=== PATIENT | male | born 1945 | race Caucasian/White ===

== ENCOUNTER → 2017-08-18 | Outpatient (CLI) | payer OTHER, MEDICARE ==
[~2017-08-18] MED LIST: GADAVIST IV PRN
--- NOTE | 2017-08-18 13:21 | DIAGNOSTIC IMAGING REPORT ---
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 There is a 5 mm postcontrast enhancing lesion within the lateral left internal auditory canal. This is unchanged in size or configuration as compared to the prior study. Enhancement characteristics are similar. The right internal auditory canal is unremarkable. Right 7th and 8th nerves are within normal limits. Diffusion-weighted knee show no evidence for an acute ischemic event. Ventricular system is midline. There are findings of moderate cerebellar as well as cerebral atrophy. Moderate chronic small vessel changes present. This is stable. There are no new or interval findings. IMPRESSION: Stable left internal auditory canal acoustic neuroma. 2. No change in size, configuration, or enhancement characteristics compared to the prior study. 3. Age-related atrophy and chronic small vessel change also unaltered. 4. No evidence of new interval or progressive process. The above report was generated using voice recognition software. It may contain grammatical, syntax or spelling errors. Electronically signed by: Will Monge M.D. 08/18/2017 1:20 PM Dictated Date/Time: 08/18/2017 1:14 PM
== END | disposition home or self-care (01) ==
LOC: C.MRI 12:02
PROVIDERS: ATTEND Family Medicine
DX: D33.3 Benign neoplasm of cranial nerves (principal)

== ENCOUNTER 2024-03-04 05:40 | Inpatient (IN) ==
--- NOTE | 2024-01-22 10:42 | PAT Medication Instructions ---
Medication Instructions Date of Service January 22, 2024 Home Medications Medication Instructions Recorded warfarin 5 mg tablet 5 - 7.5 mg PO DAILY #135 tabs 03/10/23 tamsulosin 0.4 mg capsule 0.4 mg PO HS #90 caps 12/09/23 atorvastatin 80 mg tablet 80 mg PO QPM #90 tabs 01/12/24 gabapentin 600 mg tablet 600 mg PO Q6H #120 tabs 01/15/24 cetirizine 10 mg tablet 10 mg PO QPM vit C 226 mg-vit E 90 mg-copper 0.8 mg-zinc oxide-lutein 5 mg capsule (PreserVision Lutein) 1 cap PO BID warfarin 5 mg tablet 5 - 7.5 mg PO DAILY metoprolol succinate 25 mg tablet,extended release 24 hr 25 mg PO QAM fluticasone propionate 50 mcg/actuation nasal spray,suspension (Flonase Allergy Relief) 1 spray intranasal DAILY PRN tamsulosin 0.4 mg capsule 0.4 mg PO HS atorvastatin 80 mg tablet 80 mg PO QPM acetaminophen 500 mg capsule 1,000 mg PO Q6H PRN amoxicillin 500 mg capsule 2,000 mg PO UD escitalopram oxalate 20 mg tablet 20 mg PO HS ezetimibe 10 mg tablet (Zetia) 10 mg PO QPM gabapentin 600 mg tablet 600 mg PO Q6H Continue as directed amoxicillin 500 mg capsule 2,000 mg PO UD fluticasone propionate 50 mcg/actuation nasal spray,suspension (Flonase Allergy Relief) 1 spray intranasal DAILY PRN(if needed) ASK your prescriber and surgeon warfarin 5 mg tablet 5 - 7.5 mg PO DAILY STOP taking 2 weeks before surgery (or as soon as possible if surgery is within 2 weeks) vit C 226 mg-vit E 90 mg-copper 0.8 mg-zinc oxide-lutein 5 mg capsule (PreserVision Lutein) 1 cap PO BID Take morning of surgery With a small sip of water, OTHERWISE NOTHING TO EAT OR DRINK AFTER MIDNIGHT: metoprolol succinate 25 mg tablet,extended release 24 hr 25 mg PO QAM acetaminophen 500 mg capsule 1,000 mg PO Q6H PRN(if needed) gabapentin 600 mg tablet 600 mg PO Q6H Take evening before surgery cetirizine 10 mg tablet 10 mg PO QPM tamsulosin 0.4 mg capsule 0.4 mg PO HS atorvastatin 80 mg tablet 80 mg PO QPM acetaminophen 500 mg capsule 1,000 mg PO Q6H PRN(if needed) escitalopram oxalate 20 mg tablet 20 mg PO HS ezetimibe 10 mg tablet (Zetia) 10 mg PO QPM gabapentin 600 mg tablet 600 mg PO Q6H Other Notes If you have any questions please call us at [phone] or [phone] or [phone] or [phone]
--- NOTE | 2024-01-26 11:48 | Anesthesiology Consultation ---
Date of Service January 26, 2024 Assessment & Plan (1) Encounter for pre-operative examination: Plan - pt has concerns stopping Preservision-this was discussed with Dr. Helms who advised determination will be to surgeon's office. Surgeon's office notified and patient made aware. - awaiting surgeon ordered medical clearance, [place] 01/28. - check coags STAT am DOS. - cardiology pre-op 01/22/24: "...persistent atrial fibrillation. Aortic stenosis with a [facility] mechanical aortic valve replacement in 2001 at [facility]. CAD with CABG x 1 with a ANDRE to the RCA in 2001 & previous stent to the LAD in 1994...spinal surgery...rare occasions he has a slight dizziness that lasts for few seconds and resolves on its own...Zio monitor done on 03/21/2023 showed afib burden of 99% with no other significant abnormalities One pause was noted lasting 3 seconds while patient was in atrial fibrillation...doing well today...EP...have taken patient off sotalol and substitute this with metoprolol which patient is tolerating well...euvolemic...no further cardiac workup needed prior to surgery...moderate risk for major adverse cardiac events for his spinal fusion surgery...will need bridging prior to his surgery...referral to coumadin clinic has been made..." Pt states has been contacted by coumadin clinic. Chart Review Chart Review: Pending: Refer to Additional Notes / Consult section and Patient seen in Pre Admission Testing Teaching & Discussion Pre-Anesthesia Teaching/Discussion Notes: Instructed NPO after midnight before surgery, except medications with 15 cc of water. Medication instructions provided according to the PAT guidelines. History Surgery Operation Date: 02/23/24 07:45 Proposed Procedures p L2-L5 Decompression and Fusion Spinal Cord Monitoring - Óscar Lester, Height/Weight Height: 5 ft 8 in Weight: 110.9 kg Allergies Allergy/AdvReac Type Severity Reaction Status Date / Time fexofenadine [From Milla] Allergy had chest Verified 01/13/24 11:22 pain azithromycin AdvReac Diarrhea Verified 01/13/24 11:22 Medications Home Medications Medication Instructions Recorded Confirmed Last Taken cetirizine 10 mg tablet 10 mg PO QPM 06/14/19 01/13/24 Unknown vit C 226 mg-vit E 90 mg-copper 1 cap PO BID 06/30/19 01/13/24 Unknown 0.8 mg-zinc oxide-lutein 5 mg capsule (PreserVision Lutein) warfarin 5 mg tablet 5 - 7.5 mg PO DAILY #135 tabs 03/10/23 01/13/24 Unknown metoprolol succinate 25 mg 25 mg PO QAM 07/10/23 01/13/24 Unknown tablet,extended release 24 hr fluticasone propionate 50 1 spray intranasal DAILY PRN 07/16/23 01/13/24 Unknown mcg/actuation nasal congestion/allergies spray,suspension (Flonase Allergy Relief) tamsulosin 0.4 mg capsule 0.4 mg PO HS #90 caps 12/09/23 01/13/24 Unknown atorvastatin 80 mg tablet 80 mg PO QPM #90 tabs 01/12/24 01/13/24 Unknown acetaminophen 500 mg capsule 1,000 mg PO Q6H PRN Pain 01/13/24 01/13/24 Unknown amoxicillin 500 mg capsule 2,000 mg PO UD prior to dental 01/13/24 01/13/24 Unknown procedures escitalopram oxalate 20 mg tablet 20 mg PO HS 01/13/24 01/13/24 Unknown ezetimibe 10 mg tablet (Zetia) 10 mg PO QPM 01/13/24 01/13/24 Unknown gabapentin 600 mg tablet 600 mg PO Q6H #120 tabs 01/15/24 Unknown Past Medical History Medical History (Updated 01/26/24 @ 12:03 by Smiley Arevalo PA-C) Acoustic neuroma Allergies stated he was tested thru ENT and "is allergic to 49 things he was tested for, all environmental." Anticoagulant long-term use BPH w urinary obs/LUTS CAD (coronary artery disease) CABG x 1 with ANDRE to RCA in 2021, h/o stent to LAD in 1994 Chronic low back pain Depression Deviated septum Essential hypertension controlled, stable per pt GERD without esophagitis controlled, stable per pt History of COVID-19 10/2023, tested at PCP, not hosp; mild symptoms w/cough, loss of taste/smell>resolved Hx of migraines none for last 20 years Hyperlipidemia Macrocytic anemia Macular degeneration Microscopic hematuria hx Obesity Onychomycosis of toenail hx Paroxysmal atrial fibrillation f/u dr. zelaya, [facility]>"in charge of his atrial fib" Postherpetic neuralgia Scattered rhonchi of right lung w/covid 10/2023 TMJ arthralgia "occasional pain," used to click>but none for years; no hx locking Patient denies h/o stroke, seizures, heart failure, DM, blood clots/DVTs or blood transfusions. Exercise / Class Metabolic Activity II 4-5 Yardwork/Stairs/Walk up hill (denies chest discomfort or shortness of breath with 1 FOS) Past Family History Family History Father Hypertension Heart disease CHF (congestive heart failure) Myocardial infarction Mother CHF (congestive heart failure) Aunt CHF (congestive heart failure) Diabetes Uncle CHF (congestive heart failure) Myocardial infarction Uncle CHF (congestive heart failure) Myocardial infarction Denies family history of Ovarian cancer Prostate cancer Breast cancer Colorectal cancer Stroke Past Surgical History Surgical History H/O heart artery stent ~1995, pain down backs of arms and chest pain-abn stress test, [place], x1 stent placed LAD History of aortic valve replacement with metallic valve done in conjunction w/ single CABG, [facility] in 2001 History of esophagogastroduodenoscopy (EGD) History of intestinal surgery ~1975 or 1976, obstruction/bowel "pinched off," removed small segment of bowel along with appendix Hx laparoscopic cholecystectomy S/P appendectomy taken w/bowel resection S/P CABG (coronary artery bypass graft) (2001) x 1 ANDRE to RCA + AVR, [facility]; f/u kiran dislacelina S/P cardiac cath ~1995, pain down backs of arms and chest pain-abn stress test, [place], x1 stent placed LAD S/P cataract extraction bilateral S/P colonoscopy 02/17/2013 repeat 10yrs S/P inguinal hernia repair left Past Anesthesia History No Hx of Anesthesia Complications and No Family Hx of Anesthesia Complications History of PONV No Hx of PONV and No Hx of Motion Sickness Social History Smoking Status: Former smoker Do You Dip or Chew Tobacco: Yes (1 can/2 days; advised) Smoking End Date: ~2003 Hx Alcohol Use: Yes Alcohol type: beer, wine and hard liquor alcohol intake frequency: a few times a month Hx Substance Use: No substance use type: does not use Review of Systems Snoring, denies witnessed apneas. Patient denies chest pain, shortness of breath, dyspnea on exertion, fever, chills, cough, wheezing, or palpitations. Physical Exam Vital Signs Vitals BP 113/78 P 74 TEMP 98.5 SP02 96% on RA RESP 17 Physical Patient resting comfortably in chair in no acute distress, alert and oriented, responding appropriately throughout visit Full cervical extension range of motion without pain TMD 3.5 finger breadths Mallampati Score 3 Dentition: several missing teeth-left upper side tooth-broken with planned upcoming extraction: pt states surgeon's office is aware of upcoming dental extraction, denies loose teeth, caps/crowns, implants or bridges Lungs: normal respiratory effort. Good air movement, clear throughout to auscultation, no adventitious breath sounds Cardiac: regular rate and rhythm, no murmurs noted Carotid arteries: negative bruit bilat Lab Results Anesthesia Preop Results Results Anesthesia Widget: WBC 6.59 K/ul (4.8-10.8) 01/26/24 Hgb 12.6 g/dl (14.0-18.0) L 01/26/24 Hct 39.0 % (42.0-52.0) L 01/26/24 Plt 114 K/uL (130-400) L 01/26/24 Na 141 mmol/L (136-145) 01/26/24 K 4.8 mmol/L (3.5-5.1) 01/26/24 Cl 108 mmol/L (98-107) H 01/26/24 CO2 30 mmol/L (21-32) 01/26/24 BUN 18 mg/dl (6-23) 01/26/24 Creat 1.11 mg/dl (0.6-1.4) 01/26/24 Glucose Level 101 mg/dl (70-99(Fasting)) H 01/26/24 PTT 37 Seconds (21-31) H 01/26/24 Urine Color Yellow 01/26/24 Urine Appearance Clear (Clear) 01/26/24 Urine pH 6.5 (4.5-7.5) 01/26/24 Urine Specific [place] 1.018 (1.000-1.030) 01/26/24 Urine Protein Negative (Negative) 01/26/24 Urine Glucose (UA) Negative (Negative) 01/26/24 Urine Ketones Negative (Negative) 01/26/24 Urine Blood 1+ (Negative) H 01/26/24 Urine Nitrite Negative (Negative) 01/26/24 Urine Bilirubin Negative (Negative) 01/26/24 Urine Urobilinogen Positive (Negative) H 01/26/24 Urine Leukocyte Esterase Negative (Negative) 01/26/24 Urine WBC (Auto) 0-5 /hpf (0-5) 01/26/24 Urine RBC (Auto) >20 /hpf (0-2) H 01/26/24 Urine Hyaline Casts (Auto) 0-2 /lpf (0-2) 01/26/24 Urine Epithelial Cells (Auto) 0-2 /hpf (0-2) 01/26/24 Urine Bacteria (Auto) None Seen (None Seen) 01/26/24 Blood Type A Positive 01/26/24 Antibody Screen NEGATIVE 01/26/24 Testing Electrocardiogram Date: 01/22/24 Afib, rate 76 bpm Chest X-Ray Date: 01/26/24 No acute chest disease. Echocardiogram Date: 05/22/23 EF 50-54% Afib during examination Normal LV wall motion Mild cLVH Severely enlarged LA Mildly enlarged RA Aortic valve mechanical prosthesis, overall normal prosthetic valve function Mild tricuspid regurgitation, no evidence of pulmonary hypertension Borderline enlarged proximal ascending thoracic aorta
[2024-03-04] MEDS: CeleBREX 200 MG CAP PO SCH (06:44)
[2024-03-04] MEDS: LR 15ML/HR IV SCH (06:44)
[2024-03-04] MEDS: ACETAMINOPHEN 500 MG TAB PO SCH (06:44)
[2024-03-04] MEDS: LR 60ML/HR IV SCH (06:44)
[2024-03-04] MEDS: GABAPENTIN 300 MG CAP PO SCH (06:45)
[2024-03-04] MEDS ORDERED: HYDROmorphone INJ 1 MG/ML SYRINGE IV PRN ×2 (06:59→13:03)
[2024-03-04] MEDS ORDERED: ePHEDrine sulfate 50 MG/ML AMP IV PRN (06:59)
[2024-03-04] MEDS ORDERED: ATROPINE SULFATE 0.1 MG/ML 10ML SYR IV PRN (06:59)
[2024-03-04] MEDS ORDERED: ONDANSETRON INJ 2 MG/ML 2 ML VIAL IV PRN ×2 (06:59→13:03)
[2024-03-04] MEDS ORDERED: fentaNYL citrate PF 100 MCG/2 ML VIAL ONE (07:09)
[2024-03-04] MEDS ORDERED: ROCURONIUM BROMIDE 10 MG/ML 5 ML VIAL IV ONE (07:09)
[2024-03-04] MEDS ORDERED: DEXAMETHASONE SOD INJ 4 MG/ML VIAL ONE (07:09)
[2024-03-04] MEDS ORDERED: PROPOFOL IV EMULSION 10 MG/ML 20 ML VIAL IV ONE (07:09)
[2024-03-04] MEDS ORDERED: LIDOCAINE 2% 2 ML VIAL/AMP(20MG/ML) INFIL ONE (07:09)
[2024-03-04] MEDS ORDERED: MIDAZOLAM HCL 1 MG/ML 2ML VIAL ONE (07:09)
[2024-03-04] MEDS ORDERED: ONDANSETRON INJ 2 MG/ML 2 ML VIAL ONE (07:09)
[2024-03-04] MEDS ORDERED: SUGAMMADEX SODIUM 200 MG/2 ML VIAL IV ONE (07:10)
[2024-03-04 07:14] LABS: INR 1.2 (0.9-1.1); Partial Thromboplastin Time 28 Seconds (21-31); Prothrombin Time 12.6 Seconds (9.0-12.0)
--- NOTE | 2024-03-04 07:27 | History & Physical Bridge Note ---
Date of Service March 04, 2024 History & Physical Bridge Note I have examined the patient, reviewed the History & Physical and in the interval since the performance of the History & Physical I have noted the following changes of clinical significance: no changes noted
--- NOTE | 2024-03-04 07:28 | History & Physical Report ---
Date of Service March 04, 2024 Assessment & Plan (1) Neurogenic claudication due to lumbar spinal stenosis: Plan: L2-L5 decompression and fusion History of Present Illness Chief Complaint: Back and leg pain Primary Care Provider: Alisson Gonzalez DO This is a 79-year-old male with persistent chronic persistent back and leg pain after failing course of nonoperative care is here for surgical invention. Allergies Allergy/AdvReac Type Severity Reaction Status Date / Time fexofenadine [From Milla] Allergy had chest Verified 03/04/24 06:16 pain azithromycin AdvReac Diarrhea Verified 03/04/24 06:16 Home Medications Medication Instructions Recorded Confirmed Type cetirizine 10 mg tablet 10 mg PO QPM 06/14/19 03/04/24 History vit C 226 mg-vit E 90 mg-copper 1 cap PO BID 06/30/19 03/04/24 History 0.8 mg-zinc oxide-lutein 5 mg capsule (PreserVision Lutein) warfarin 5 mg tablet 5 - 7.5 mg PO DAILY #135 tabs 03/10/23 03/04/24 Rx metoprolol succinate 25 mg 25 mg PO QAM 07/10/23 03/04/24 History tablet,extended release 24 hr fluticasone propionate 50 1 spray intranasal DAILY PRN 07/16/23 03/04/24 History mcg/actuation nasal congestion/allergies spray,suspension (Flonase Allergy Relief) tamsulosin 0.4 mg capsule 0.4 mg PO HS #90 caps 12/09/23 03/04/24 Rx atorvastatin 80 mg tablet 80 mg PO QPM #90 tabs 01/12/24 03/04/24 Rx acetaminophen 500 mg capsule 1,000 mg PO Q6H PRN Pain 01/13/24 03/04/24 History amoxicillin 500 mg capsule 2,000 mg PO UD prior to dental 01/13/24 03/04/24 History procedures escitalopram oxalate 20 mg tablet 20 mg PO HS 01/13/24 03/04/24 History ezetimibe 10 mg tablet (Zetia) 10 mg PO QPM 01/13/24 03/04/24 History gabapentin 600 mg tablet 600 mg PO Q6H #120 tabs 02/02/24 03/04/24 Rx cholecalciferol (vitamin D3) 125 125 mcg PO DAILY 03/04/24 03/04/24 History mcg (5,000 unit) tablet (Vitamin D3) Past Med/Surg History Problem List (Updated 03/04/24 @ 07:28 by Óscar Lester, DO) Neurogenic claudication due to lumbar spinal stenosis Head trauma Abrasion of leg, left Lumbar pain Left hip pain MCL sprain of right knee Right knee DJD Scattered rhonchi of right lung w/covid 10/2023 COVID-19 virus infection Macrocytic anemia Microscopic hematuria hx BPH w urinary obs/LUTS Chronic low back pain Deviated septum Onychomycosis of toenail hx History of aortic valve replacement with metallic valve done in conjunction w/ single CABG, C in 2001 TMJ arthralgia "occasional pain," used to click>but none for years; no hx locking Postherpetic neuralgia Acoustic neuroma (Chronic) Allergic rhinitis (Chronic) CAD (coronary artery disease) (Chronic) CABG x 1 with ANDRE to RCA in 2021, h/o stent to LAD in 1994 Depression (Chronic) GERD without esophagitis (Chronic) controlled, stable per pt Hyperlipidemia (Chronic) Essential hypertension (Chronic) controlled, stable per pt Macular degeneration (Chronic) Obesity (Chronic) Paroxysmal atrial fibrillation (Chronic) f/u dr. zealya, [facility]>"in charge of his atrial fib" Anticoagulant long-term use (Chronic) Medical History Allergies Hx of migraines History of COVID-19 Scattered rhonchi of right lung Macrocytic anemia Microscopic hematuria BPH w urinary obs/LUTS Chronic low back pain Deviated septum Onychomycosis of toenail TMJ arthralgia Postherpetic neuralgia Acoustic neuroma CAD (coronary artery disease) Depression GERD without esophagitis Hyperlipidemia Essential hypertension Macular degeneration Obesity Paroxysmal atrial fibrillation Anticoagulant long-term use Surgical History Hx laparoscopic cholecystectomy History of intestinal surgery History of esophagogastroduodenoscopy (EGD) H/O heart artery stent S/P inguinal hernia repair S/P appendectomy S/P cardiac cath S/P cataract extraction S/P colonoscopy History of aortic valve replacement with metallic valve S/P CABG (coronary artery bypass graft) (2001) Family History Father Hypertension Heart disease CHF (congestive heart failure) Myocardial infarction Mother CHF (congestive heart failure) Aunt CHF (congestive heart failure) Diabetes Uncle CHF (congestive heart failure) Myocardial infarction Uncle CHF (congestive heart failure) Myocardial infarction Denies family history of Ovarian cancer Prostate cancer Breast cancer Colorectal cancer Stroke Social History Smoking Status: Former smoker Tobacco Type: Smokeless Tobacco (Dip or Chew) Age Started Using Tobacco: 21; Age Quit Using Tobacco: 28; packs per day: 2; Smoking End Date: ~2003; Second Hand Exposure: Yes (hx); Do You Dip or Chew Tobacco: Yes (1 can/2 days; advised); Tobacco Cessation Education Requested by Patient: No Hx Alcohol Use: Yes Alcohol type: beer, wine and hard liquor Alcohol Intake Frequency: 2-4 x/Month Hx Substance Use: No Preferred Language: Cuban Communication Ability: Effective Visual Impairment: Partially Limited Hearing Ability: Hard of Hearing 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: No Beliefs That Will Affect Care: None marital status: Current Living Situation: Spouse and Family Current Living Situation Comment: lives with spouse and son current occupational status: retired current occupation: Worked at [employer] How many Children do You have: 2 Other Information That Helps Us Care for You: No Feels Safe at Home: Yes Safety Concerns: Feels Safe At This Time Childhood Exposure to Second-Hand Smoke: Yes caffeine: Yes (coffee daily/soda occasionally) Dental Care, Regularly: Yes Physical Activity Frequency: Does not Exercise Seatbelt Use: always Sunscreen Use: No Do you think of yourself as: straight/heterosexual Assistive Devices: Glasses Physical Exam Physical Exam: Patient is alert and oriented Heart regular in rhythm Lungs clear Results & Data Results & Data Vital Signs (Past 12 Hours) Vital Signs Temp Pulse Resp BP Pulse Ox O2 Del Method 03/04/24 06:42 36.6 C 70 18 118/83 97 Room Air 03/04/24 06:22 Room Air
[2024-03-04] MEDS: ceFAZolin 2000MG 2,000 MG/15 ML SYR IV SCH ×2 (07:53→17:26)
[2024-03-04] MEDS ORDERED: PHENYLEPHRINE 100MCG/ML 10ML SYR IV ONE (09:01)
[2024-03-04] MEDS: ceFAZolin 330 MG/ML 1 GM VIAL ONE (09:52)
[2024-03-04] MEDS: FLOSEAL HEMOSTATIC MATRIX 10ML TOP ONE (09:53)
[2024-03-04] MEDS: BUPIVACAINE/EPINEPHRINE 0.25% 1:200,000 30 ML VIAL ONE (09:53)
[2024-03-04] MEDS ORDERED: ALBUTEROL HFA 8 GM INHALER INH ONE (10:03)
--- NOTE | 2024-03-04 10:06 | Fluoroscopy Report ---
FL lumbar spine 2-3V CLINICAL HISTORY: L2-L5 DECOMP/FUSION COMPARISON STUDY: None. FLUOROSCOPY TIME: 30 seconds FLUOROSCOPY IMAGES: 2 Ka,r: 30.3 mGy FINDINGS: Posterior decompression fusion from L2 through L5 with pedicle screws and rods. The hardwar e appears intact. IMPRESSION: Fluoroscopic assistance as above. ACT 112: Negative or not required by law. Electronically signed by: Harrison Ordaz M.D. 03/04/2024 10:04 AM
--- NOTE | 2024-03-04 10:07 | Operative Report ---
Post Operative Report Pre & Post Diagnosis Operation Date: 03/04/24 07:30 Pre-Op Diagnosis: #1 lumbar spinal stenosis with neurogenic claudication #2 obesity Post-Op Diagnosis: Same I identified the patient and participated in the time-out.: Yes Procedure Operation Date: 03/04/24 07:30 Actual Procedures #1 lumbar decompression bilateral medial facetectomies and foraminotomies L2-L3, L3-L4 and L4-L5. #2 posterior spinal fusion L2-L5 per #3 placed posterior segmental instrumentation L2-L5. #4 interbody fusion L3-L4 per #5 placement spiral 13 x 26 mm x 2 at L3-L4. #6 placement locally harvested morselized autograft in the posterior gutters. #7 placement of infuse collagen sponge combined with Koros bone graft in the posterior lateral gutters and Morpheus bone graft interbody space. Surgeon Óscar Lester, Health Underwriter Michelle varela Estimated Blood Loss 1,050 Findings See Below Patient is 5 foot 8 weighing over 112 kg with a BMI in excess of 37. This combined with an EBL of greater than 1000 cc created significant technical difficulty. We struggled with patient positioning exposure and procedure itself. This at least 50% increase in the operative time. This would justify a 22 modifier. Specimens None Indications This is a 79-year-old male presents above-mentioned diagnosis of failed course of nonoperative care is here for surgical invention. Description of Procedure Patient was met with identified informed consent obtained. Patient was then taken to the operative suite underwent intubation placed in a prone position on the Reynold table top the Davon frame. All bony prominences well-padded eyes inspected to ensure no external precipice upon the. This point the lumbar spine was prepped and draped in normal sterile fashion. Sharp dissection with the assistance of Bovie cautery was performed down to and exposing the lamina and transverse processes of L2 L3-L4-L5 bilaterally. We did had to utilize the deepest retractors in order the expose the spine. This includes our longer Kerrisons. I then performed a complete laminectomy of L4 including bilateral medial facetectomies and foraminotomies followed by L3 with bilateral medial facetectomies and foraminotomies and lastly L2 including bilateral medial facetectomies and foraminotomies addressing severe spinal stenosis. Pedicle screws were then placed at L2-L3 L4-5 bilaterally with assistance of fluoroscopy and appropriate size cody placed. By way of transforaminal approach on the right discectomy of all 3 L4 was performed endplates guarded to subcortical bleeding bone and 13 x 26 mm spiral cage filled with Morpheus bone graft tapped in position. Then proceeded to the left transforaminal region at L3-L4 completed the discectomy endplates guarded to subcortical bleeding bone and placed a second 13 x 26 mm spiral cage filled with Koros bone graft into position. The rods were then locked in final position bilaterally. The transverse processes of L2-L3-L4 and L5 burred to subcortical bleeding bone. Infuse collagen sponge combined with Koros and local autograft placed in posterior gutters. 15 round drain drain inserted. The incision was then closed with 1 Vicryl in the fascia 2-0 Vicryl subcutaneously and 4 Monocryl for final skin closure. Steri-Strips sterile dressing placed. Patient waken taken to PACU stable condition. Please note spinal cord monitoring was utilized at the procedure no changes noted. Lastly Michelle Morrison was present throughout procedure. I attest to the content of the Intraoperative Record and any orders documented therein. Any exceptions are noted below.
[2024-03-04] MEDS: fentaNYL citrate PF 100 MCG/2 ML VIAL IV PRN (10:44)
[2024-03-04 11:16] LABS: Basophils # (auto) 0.04 K/uL (0.00-0.20); Basophils % (auto) 0.6 %; Eosinophils # (auto) 0.31 K/uL (0.00-0.50); Eosinophils % (auto) 4.8 %; Hematocrit (blood only) 35.2 % (42.0-52.0); Hemoglobin 11.6 g/dl (14.0-18.0); Immature Granulocytes # (auto) 0.06 K/uL (0.01-0.20); Immature Granulocytes % (auto) 0.9 %; Lymphocytes # (auto) 0.87 K/uL (1.20-3.40); Lymphocytes % (auto) 13.5 %; Mean Platelet Volume 10.1 fL (9.4-12.4); Monocytes # (auto) 0.25 K/uL (0.11-0.59); Monocytes % (auto) 3.9 %; Neutrophils # (auto) 4.91 K/uL (1.40-6.50); Neutrophils % (auto) 76.3 %; Platelet Count 103 K/uL (130-400); RDW Coefficient of Variation 13.4 % (11.5-14.5); RDW Standard Deviation 49.6 fL (36.4-46.3); Red Blood Count 3.52 M/uL (4.70-6.10); White Blood Count 6.44 K/ul (4.8-10.8)
[2024-03-04] MEDS ORDERED: ALBUMIN HUMAN 5% 12.5 GM/250 ML VIAL IV ONE (11:19)
[2024-03-04] MEDS: ALBUMIN 5% 250 ML IV ONE (11:30)
--- NOTE | 2024-03-04 12:10 | Anesthesiology Progress Note ---
Date of Service March 04, 2024 Anesthesia Post Procedure Vital Signs Vital Signs: Temp Pulse Pulse Resp BP Pulse Ox O2 Del Method 03/04/24 12:05 36.4 C L 87 12 95/64 L 98 Nasal Cannula 03/04/24 11:55 83 12 95/63 L 96 Nasal Cannula 03/04/24 11:45 95 H 12 96/61 L 96 Nasal Cannula 03/04/24 11:35 95 H 12 100/63 97 Nasal Cannula 03/04/24 11:35 89 12 92/61 L 96 Nasal Cannula 03/04/24 11:25 93 H 12 80/61 L 98 Nasal Cannula 03/04/24 11:15 89 12 85/69 L 100 Nasal Cannula 03/04/24 11:05 103 H 14 88/58 L 99 Nasal Cannula 03/04/24 10:55 106 H 14 104/63 100 Nasal Cannula 03/04/24 10:45 93 H 12 107/69 99 Nasal Cannula 03/04/24 10:35 97 H 16 101/65 97 Nasal Cannula 03/04/24 10:27 36.3 C L 88 18 104/67 98 Nasal Cannula 03/04/24 06:42 36.6 C 70 18 118/83 97 Room Air 03/04/24 06:22 Room Air O2 Flow Rate 03/04/24 12:05 2 03/04/24 11:55 2 03/04/24 11:45 2 03/04/24 11:35 2 03/04/24 11:35 2 03/04/24 11:25 4 03/04/24 11:15 4 03/04/24 11:05 4 03/04/24 10:55 4 03/04/24 10:45 4 03/04/24 10:35 4 03/04/24 10:27 5 03/04/24 06:42 03/04/24 06:22 Pain Intensity Lower Back: Pain Intensity: 8 Transfer of Care Handoff Completed per policy Notes Mental Status: alert / awake / arousable and participated in evaluation Patient Amnestic to Procedure: Yes Nausea / Vomiting: adequately controlled Pain: adequately controlled Airway Patency, RR, SpO2: stable & adequate BP & HR: stable & adequate Hydration State: stable & adequate Anesthetic Complications: no major complications apparent and Pt Satisfied with anesthetic care
[2024-03-04] MEDS ORDERED: ACETAMINOPHEN 500 MG TAB PO PRN (13:03)
[2024-03-04] MEDS ORDERED: NALOXONE HCL 0.4 MG/1 ML VIAL/CARP IV PRN (13:03)
[2024-03-04] MEDS ORDERED: FAMOTIDINE 20 MG TAB PO PRN (13:03)
[2024-03-04] MEDS ORDERED: PROMETHAZINE HCL 12.5 MG in SODIUM CHLORIDE 0.9% 50 ML IV PRN (13:03)
[2024-03-04] MEDS ORDERED: METOCLOPRAMIDE HCL INJ 5 MG/ML 2 ML VIAL IV PRN (13:03)
[2024-03-04] MEDS ORDERED: DO NOT ADMINISTER PNEUMOCOCCAL VACCINE PRN (13:03)
[2024-03-04] MEDS ORDERED: hydrOXYzine HCl 25 MG TAB PO PRN (13:03)
[2024-03-04] MEDS ORDERED: diphenhydrAMINE Capsule 25 MG CAP PO PRN (13:03)
[2024-03-04] MEDS ORDERED: bisacodyL 10 MG SUPP PR PRN (13:03)
[2024-03-04] MEDS ORDERED: traMADol HCL 50 MG TABLET PO PRN (13:03)
[2024-03-04] MEDS ORDERED: DO NOT ADMINISTER FLU VACCINE PRN (13:03)
[2024-03-04] MEDS ORDERED: LORazepam 0.5 MG in SYRINGE 0.25 ML IV PRN (13:03)
[2024-03-04] MEDS ORDERED: ALUMINUM/MAGNESIUM SUSP 30 ML UDC PO PRN (13:03)
[2024-03-04] MEDS ORDERED: MAGNESIUM HYDROXIDE SUSP 30 ML UDC PO PRN (13:03)
[2024-03-04] MEDS ORDERED: ACETAMINOPHEN 1,000 MG/100 ML VIAL IV PRN (13:03)
[2024-03-04] MEDS ORDERED: SOD PHOSPHATE/SOD BIPHOSPHATE ENEMA 132 ML BTL PR PRN (13:03)
[2024-03-04] MEDS ORDERED: FLUTICASONE PROPIONATE NA SPR 16 GM BTL PRN (13:03)
[2024-03-04] MEDS ORDERED: HYDROmorphone INJ 0.5 MG/0.5 ML SYR IV PRN (13:03)
[2024-03-04] MEDS ORDERED: ONDANSETRON 4 MG OD TAB PO PRN (13:03)
[2024-03-04] MEDS: LACTATED RINGER'S 1,000 ML IV SCH (14:19)
[2024-03-04] MEDS: GABAPENTIN 600 MG TAB PO SCH (14:23)
--- NOTE | 2024-03-04 16:22 | Consultation ---
Date of Consultation March 04, 2024 Assessment & Plan (1) Neurogenic claudication due to lumbar spinal stenosis: Status post L2-L5 lumbar decompression laminectomy today, March 04, with fusion, instrumentation, bone graft. Management by orthopedic spine surgery (2) History of aortic valve replacement with metallic valve: He has been off Coumadin for several weeks. Most recent [facility].2 [facility] March 04[facility] (3) CAD (coronary artery disease): History of coronary artery bypass grafting with right internal mammary artery to the right coronary artery in 2001. He also underwent PCI to the LAD in 1994. He currently is chest pain-free. Continue beta-aravind therapy. Telemetry. (4) Chronic atrial fibrillation: Rate controlled. Coumad[facility] has been on hold. [facility] and [facility]. Telemetry Plan Will see the patient daily while hospitalized for medical management. History of Present Illness Requesting Physician: Dr. Israel Lester Reason for Consultation: Medical management Attending Physician: Óscar Lester DO History of Present Illness 79-year-old obese white male with lumbar stenosis who underwent lumbar decompression laminectomy with fusion, instrumentation, bone graft from L2-L5 level. He has a history of coronary artery bypass grafting and PCI of the LAD. He also has chronic atrial fibrillation and normally takes Coumadin which he has been off of for a while. Most recent INR is 1.2. [facility] cardiology has been consulted for anticoagulant management. He is seen postoperatively and is alert and oriented. Systolic blood pressure runs in the 90s which is normal for him. He is alert and oriented. All medications have been reordered except for Coumadin Allergies Allergy/AdvReac Type Severity Reaction Status Date / Time fexofenadine [From Milla] Allergy had chest Verified 03/04/24 06:16 pain azithromycin AdvReac Diarrhea Verified 03/04/24 06:16 Home Medications Medication Instructions Recorded Confirmed Type cetirizine 10 mg tablet 10 mg PO QPM 06/14/19 03/04/24 History vit C 226 mg-vit E 90 mg-copper 1 cap PO BID 06/30/19 03/04/24 History 0.8 mg-zinc oxide-lutein 5 mg capsule (PreserVision Lutein) warfarin 5 mg tablet 5 - 7.5 mg PO DAILY #135 tabs 03/10/23 03/04/24 Rx metoprolol succinate 25 mg 25 mg PO QAM 07/10/23 03/04/24 History tablet,extended release 24 hr fluticasone propionate 50 1 spray intranasal DAILY PRN 07/16/23 03/04/24 History mcg/actuation nasal congestion/allergies spray,suspension (Flonase Allergy Relief) tamsulosin 0.4 mg capsule 0.4 mg PO HS #90 caps 12/09/23 03/04/24 Rx atorvastatin 80 mg tablet 80 mg PO QPM #90 tabs 01/12/24 03/04/24 Rx acetaminophen 500 mg capsule 1,000 mg PO Q6H PRN Pain 01/13/24 03/04/24 History amoxicillin 500 mg capsule 2,000 mg PO UD prior to dental 01/13/24 03/04/24 History procedures escitalopram oxalate 20 mg tablet 20 mg PO HS 01/13/24 03/04/24 History ezetimibe 10 mg tablet (Zetia) 10 mg PO QPM 01/13/24 03/04/24 History gabapentin 600 mg tablet 600 mg PO Q6H #120 tabs 02/02/24 03/04/24 Rx cholecalciferol (vitamin D3) 125 125 mcg PO DAILY 03/04/24 03/04/24 History mcg (5,000 unit) tablet (Vitamin D3) Patient History Medical History Allergies Hx of migraines History of COVID-19 Scattered rhonchi of right lung Macrocytic anemia Microscopic hematuria BPH w urinary obs/LUTS Chronic low back pain Deviated septum Onychomycosis of toenail TMJ arthralgia Postherpetic neuralgia Acoustic neuroma CAD (coronary artery disease) Depression GERD without esophagitis Hyperlipidemia Essential hypertension Macular degeneration Obesity Paroxysmal atrial fibrillation Anticoagulant long-term use Surgical History Hx laparoscopic cholecystectomy History of intestinal surgery History of esophagogastroduodenoscopy (EGD) H/O heart artery stent S/P inguinal hernia repair S/P appendectomy S/P cardiac cath S/P cataract extraction S/P colonoscopy History of aortic valve replacement with metallic valve S/P CABG (coronary artery bypass graft) (2001) Family History Father Hypertension Heart disease CHF (congestive heart failure) Myocardial infarction Mother CHF (congestive heart failure) Aunt CHF (congestive heart failure) Diabetes Uncle CHF (congestive heart failure) Myocardial infarction Uncle CHF (congestive heart failure) Myocardial infarction Denies family history of Ovarian cancer Prostate cancer Breast cancer Colorectal cancer Stroke Social History Smoking Status: Former smoker Tobacco Type: Smokeless Tobacco (Dip or Chew) Age Started Using Tobacco: 21; Age Quit Using Tobacco: 28; packs per day: 2; Smoking End Date: ~2003; Second Hand Exposure: Yes (hx); Do You Dip or Chew Tobacco: Yes (1 can/2 days; advised); Tobacco Cessation Education Requested by Patient: No Hx Alcohol Use: Yes Alcohol type: beer, wine and hard liquor Alcohol Intake Frequency: 2-4 x/Month Hx Substance Use: No Preferred Language: Japanese Communication Ability: Effective Visual Impairment: Partially Limited Hearing Ability: Hard of Hearing 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 Beliefs That Will Affect Care: None marital status: Current Living Situation: Spouse and Family Current Living Situation Comment: lives with spouse and son current occupational status: retired current occupation: Worked at [employer] How many Children do You have: 2 Other Information That Helps Us Care for You: No Feels Safe at Home: Yes Safety Concerns: Feels Safe At This Time Childhood Exposure to Second-Hand Smoke: Yes caffeine: Yes (coffee daily/soda occasionally) Dental Care, Regularly: Yes Physical Activity Frequency: Does not Exercise Seatbelt Use: always Sunscreen Use: No Do you think of yourself as: straight/heterosexual Assistive Devices: Glasses Review of Systems 2 Review of Systems: Constitutional-no fever or chills ENT-no blurred vision, no double vision, no epistaxis, no sore throat Respiratory-no cough, no wheezing, no shortness of breath Cardiac-no palpitations, no chest pain, no syncope GI-no nausea, vomiting, diarrhea, melena, hematochezia -no urinary retention, no urinary incontinence, no dysuria, no hematuria Musculoskeletal-lumbar area postoperative back discomfort as expected Skin-no bruising, no rashes, no pruritus Neuro-no isolated weakness, no paresthesia Psych-no depression, no anxiety Physical Exam 2 Physical Exam: General-alert and oriented x3, no fever, no chills. Obese HEENT-head atraumatic and normocephalic, pupils equal and reactive to light, extraocular muscles intact Neck-no lymphadenopathy or thyromegaly, trachea midline Chest-clear to auscultation. No rales, wheezing or rhonchi Cardiac-irregular rhythm with controlled rate. Normal S1 and S2 Abdomen-normal bowel sounds, no hepatosplenomegaly Extremities-no cyanosis, clubbing, or edema Neuro-cranial nerves II through XII intact, motor and sensory function within normal limits, strength symmetrical, no focal deficits Psych-normal affect, normal mood Results & Data Vital Signs (Past 12 Hours) Vital Signs Temp Pulse Pulse Resp BP Pulse Ox O2 Del Method 03/04/24 16:02 97/64 L 03/04/24 15:49 36.7 C 74 16 87/62 L 99 Room Air 03/04/24 15:12 36.7 C 70 17 95/63 L 100 Nasal Cannula 03/04/24 13:58 36.2 C L 72 18 94/58 L 95 Nasal Cannula 03/04/24 13:22 36.5 C 72 15 92/61 L 98 Nasal Cannula 03/04/24 12:51 36.5 C 82 15 91/57 L 94 Nasal Cannula 03/04/24 12:25 76 14 94/61 L 96 Nasal Cannula 03/04/24 12:15 75 14 95/59 L 97 Nasal Cannula 03/04/24 12:05 36.4 C L 87 12 95/64 L 98 Nasal Cannula 03/04/24 11:55 83 12 95/63 L 96 Nasal Cannula 03/04/24 11:45 95 H 12 96/61 L 96 Nasal Cannula 03/04/24 11:35 95 H 12 100/63 97 Nasal Cannula 03/04/24 11:35 89 12 92/61 L 96 Nasal Cannula 03/04/24 11:25 93 H 12 80/61 L 98 Nasal Cannula 03/04/24 11:15 89 12 85/69 L 100 Nasal Cannula 03/04/24 11:05 103 H 14 88/58 L 99 Nasal Cannula 03/04/24 10:55 106 H 14 104/63 100 Nasal Cannula 03/04/24 10:45 93 H 12 107/69 99 Nasal Cannula 03/04/24 10:35 97 H 16 101/65 97 Nasal Cannula 03/04/24 10:27 36.3 C L 88 18 104/67 98 Nasal Cannula 03/04/24 06:42 36.6 C 70 18 118/83 97 Room Air 03/04/24 06:22 Room Air O2 Flow Rate 03/04/24 16:02 03/04/24 15:49 03/04/24 15:12 2 03/04/24 13:58 2 03/04/24 13:22 2 03/04/24 12:51 2 03/04/24 12:25 2 03/04/24 12:15 2 03/04/24 12:05 2 03/04/24 11:55 2 03/04/24 11:45 2 03/04/24 11:35 2 03/04/24 11:35 2 03/04/24 11:25 4 03/04/24 11:15 4 03/04/24 11:05 4 03/04/24 10:55 4 03/04/24 10:45 4 03/04/24 10:35 4 03/04/24 10:27 5 03/04/24 06:42 03/04/24 06:22 Laboratory Results 03/04/24 10:55 PG Care Time/CCT Total # of Minutes Spent Total Time Spent with Patient: Total time spent is greater than 50% in coordination of care (as documented) at patient's floor/unit and/or counseling patient: Coding Level of Care Code 61108 INT INP/OBS CARE 3/75MIN Diagnoses Neurogenic claudication due to lumbar spinal stenosis M48.062 History of aortic valve replacement with metallic valve Z95.4 CAD (coronary artery disease) I25.10 Chronic atrial fibrillation I48.20
[2024-03-04] MEDS ORDERED: Nursing to Pharmacy Communication SCH (18:00)
--- NOTE | 2024-03-04 19:02 | Cardiology Consultation ---
Date of Consultation March 04, 2024 Assessment & Plan (1) Neurogenic claudication due to lumbar spinal stenosis: (2) Chronic atrial fibrillation: (3) History of aortic valve replacement with metallic valve: Patient has a history of persistent atrial fibrillation, stable coronary heart disease, and surgical aortic valve replacement with a [employer] mechanical prosthesis in [address] [facility]. Preoperatively, he had undergone a Lovenox bridge. His last dose of Coumadin had been taken on 02/27/2024. He started Lovenox 120 mg every 12 hours first dose on 03/01/2024 and last dose was in the evening of 03/03/2024 in preparation for surgery today, 03/04/2024. I discussed the importance of anticoagulation for stroke prophylaxis and for maintaining mobility of his aortic valve prosthetic leaflets. Patient aware of the need to minimize the time off of anticoagulation as best as possible however given spine surgery today, with indwelling spine drain, will hold off on full systemic anticoagulation today with Lovenox or unfractionated heparin. Proceed with resuming his home dose of Coumadin, 5 mg daily and we will repeat an INR and CBC tomorrow. Case discussed by phone with Dr. Lester who agreed with the plan of resuming Coumadin this evening. History of Present Illness Attending Physician: Óscar Lester, DO History of Present Illness Mr Riojas is a 79 year old male seen in cardiology consultation per the request of Dr Causey for the management of perioperative anticoagulation. Patient's spouse, Melonie, is a retired nurse and participated in my evaluation via speaker phone. Patient underwent elective lumbar spine surgery performed by Dr. Lester today. The patient is currently feeling well and is in the bedside chair. His pain is well-controlled. A Sher catheter was then placed with heme tinged urine. An indwelling spine drain is in place with mild bloody drainage. Patient denies chest discomfort or shortness of breath. The patient's primary supervisor sewer system is Dr Puneet Bhatt of [facility]. History: 1. Persistent atrial fibrillation (no longer on Sotalol) 2. Aortic stenosis with a [employer] Aaron mechanical aortic valve replacement in [address] [facility] 3. CAD with CABG x 1 with a ANDRE to the RCA in 2001 & previous stent to the LAD in 1994 at [facility] 4. HTN 5. HLD Allergies Allergy/AdvReac Type Severity Reaction Status Date / Time fexofenadine [From Milla] Allergy had chest Verified 03/04/24 06:16 pain azithromycin AdvReac Diarrhea Verified 03/04/24 06:16 Home Medications Medication Instructions Recorded Confirmed Type cetirizine 10 mg tablet 10 mg PO QPM 06/14/19 03/04/24 History vit C 226 mg-vit E 90 mg-copper 1 cap PO BID 06/30/19 03/04/24 History 0.8 mg-zinc oxide-lutein 5 mg capsule (PreserVision Lutein) warfarin 5 mg tablet 5 - 7.5 mg PO DAILY #135 tabs 03/10/23 03/04/24 Rx metoprolol succinate 25 mg 25 mg PO QAM 07/10/23 03/04/24 History tablet,extended release 24 hr fluticasone propionate 50 1 spray intranasal DAILY PRN 07/16/23 03/04/24 History mcg/actuation nasal congestion/allergies spray,suspension (Flonase Allergy Relief) tamsulosin 0.4 mg capsule 0.4 mg PO HS #90 caps 12/09/23 03/04/24 Rx atorvastatin 80 mg tablet 80 mg PO QPM #90 tabs 01/12/24 03/04/24 Rx acetaminophen 500 mg capsule 1,000 mg PO Q6H PRN Pain 01/13/24 03/04/24 History amoxicillin 500 mg capsule 2,000 mg PO UD prior to dental 01/13/24 03/04/24 History procedures escitalopram oxalate 20 mg tablet 20 mg PO HS 01/13/24 03/04/24 History ezetimibe 10 mg tablet (Zetia) 10 mg PO QPM 01/13/24 03/04/24 History gabapentin 600 mg tablet 600 mg PO Q6H #120 tabs 02/02/24 03/04/24 Rx cholecalciferol (vitamin D3) 125 125 mcg PO DAILY 03/04/24 03/04/24 History mcg (5,000 unit) tablet (Vitamin D3) Patient History Medical History Allergies stated he was tested thru ENT and "is allergic to 49 things he was tested for, all environmental." Hx of migraines none for last 20 years History of COVID-19 10/2023, tested at PCP, not hosp; mild symptoms w/cough, loss of taste/smell>r esolved Surgical History Hx laparoscopic cholecystectomy History of intestinal surgery ~1975 or 1976, obstruction/bowel "pinched off," removed small segment of bowel along with appendix History of esophagogastroduodenoscopy (EGD) H/O heart artery stent ~1995, pain down backs of arms and chest pain-abn stress test, [place], x1 stent placed LAD S/P inguinal hernia repair left S/P appendectomy taken w/bowel resection S/P cardiac cath ~1995, pain down backs of arms and chest pain-abn stress test, [place], x1 stent placed LAD S/P cataract extraction bilateral S/P colonoscopy 02/17/2013 repeat 10yrs S/P CABG (coronary artery bypass graft) (2001) x 1 ANDRE to RCA + AVR, [facility] [place] f/u dr. bhatt, kiran irwin Family History Father Hypertension Heart disease CHF (congestive heart failure) Myocardial infarction Mother CHF (congestive heart failure) Aunt CHF (congestive heart failure) Diabetes Uncle CHF (congestive heart failure) Myocardial infarction Uncle CHF (congestive heart failure) Myocardial infarction Denies family history of Ovarian cancer Prostate cancer Breast cancer Colorectal cancer Stroke Social History Smoking Status: Former smoker Tobacco Type: Smokeless Tobacco (Dip or Chew) Age Started Using Tobacco: 21; Age Quit Using Tobacco: 28; packs per day: 2; Smoking End Date: ~2003; Second Hand Exposure: Yes (hx); Do You Dip or Chew Tobacco: Yes (1 can/2 days; advised); Tobacco Cessation Education Requested by Patient: No Hx Alcohol Use: Yes Alcohol type: beer, wine and hard liquor Alcohol Intake Frequency: 2-4 x/Month Hx Substance Use: No Preferred Language: Yoruba Communication Ability: Effective Visual Impairment: Partially Limited Hearing Ability: Hard of Hearing 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 Beliefs That Will Affect Care: None marital status: Current Living Situation: Spouse and Family Current Living Situation Comment: lives with spouse and son current occupational status: retired current occupation: Worked at [employer] How many Children do You have: 2 Other Information That Helps Us Care for You: No Feels Safe at Home: Yes Safety Concerns: Feels Safe At This Time Childhood Exposure to Second-Hand Smoke: Yes caffeine: Yes (coffee daily/soda occasionally) Dental Care, Regularly: Yes Physical Activity Frequency: Does not Exercise Seatbelt Use: always Sunscreen Use: No Do you think of yourself as: straight/heterosexual Assistive Devices: Glasses Review of Systems Review of Systems: All systems reviewed & are unremarkable except as noted in HPI & below Physical Exam Constitutional: WD/WN, vitals as above Respiratory: normal respiratory effort, lungs clear to auscultation Cardiovascular: Rate/Rhythm: + irregularly irregular Heart Sounds: normal S1 and normal S2 Extremities: no edema Nolan prosthetic heart sounds noted Musculoskeletal: Indwelling spine drain, with mild sanguinous drainage. Neurologic: Conversant, no focal deficits Genitourinary: Sher catheter in place with heme tinged urine Results & Data Vital Signs (Past 12 Hours) Vital Signs Temp Pulse Pulse Resp BP Pulse Ox O2 Del Method 03/04/24 17:39 36.7 C 100 H 17 102/68 94 Room Air 03/04/24 16:02 97/64 L 03/04/24 15:49 36.7 C 74 16 87/62 L 99 Room Air 03/04/24 15:12 36.7 C 70 17 95/63 L 100 Nasal Cannula 03/04/24 13:58 36.2 C L 72 18 94/58 L 95 Nasal Cannula 03/04/24 13:22 36.5 C 72 15 92/61 L 98 Nasal Cannula 03/04/24 12:51 36.5 C 82 15 91/57 L 94 Nasal Cannula 03/04/24 12:25 76 14 94/61 L 96 Nasal Cannula 03/04/24 12:15 75 14 95/59 L 97 Nasal Cannula 03/04/24 12:05 36.4 C L 87 12 95/64 L 98 Nasal Cannula 03/04/24 11:55 83 12 95/63 L 96 Nasal Cannula 03/04/24 11:45 95 H 12 96/61 L 96 Nasal Cannula 03/04/24 11:35 95 H 12 100/63 97 Nasal Cannula 03/04/24 11:35 89 12 92/61 L 96 Nasal Cannula 03/04/24 11:25 93 H 12 80/61 L 98 Nasal Cannula 03/04/24 11:15 89 12 85/69 L 100 Nasal Cannula 03/04/24 11:05 103 H 14 88/58 L 99 Nasal Cannula 03/04/24 10:55 106 H 14 104/63 100 Nasal Cannula 03/04/24 10:45 93 H 12 107/69 99 Nasal Cannula 03/04/24 10:35 97 H 16 101/65 97 Nasal Cannula 03/04/24 10:27 36.3 C L 88 18 104/67 98 Nasal Cannula O2 Flow Rate 03/04/24 17:39 03/04/24 16:02 03/04/24 15:49 03/04/24 15:12 2 03/04/24 13:58 2 03/04/24 13:22 2 03/04/24 12:51 2 03/04/24 12:25 2 03/04/24 12:15 2 03/04/24 12:05 2 03/04/24 11:55 2 03/04/24 11:45 2 03/04/24 11:35 2 03/04/24 11:35 2 03/04/24 11:25 4 03/04/24 11:15 4 03/04/24 11:05 4 03/04/24 10:55 4 03/04/24 10:45 4 03/04/24 10:35 4 03/04/24 10:27 5 Laboratory Results INR today 1.2 Diagnostic Findings Most recent outpatient echocardiogram had been on 05/22/2023 at [facility] LVEF 50-54% Mild concentric left ventricular hypertrophy Severe left atrial enlargement Mild right atrial enlargement Normal prosthetic aortic valve function Trace mitral regurgitation Mild tricuspid regurgitation Proximal ascending thoracic aorta borderline enlarged
[2024-03-04] MEDS: WARFARIN SOD 5 MG TAB PO ONE (19:30)
[2024-03-04] MEDS: ATORVASTATIN 40 MG TAB PO SCH (21:00)
[2024-03-04] MEDS: CETIRIZINE HCL 10 MG TABLET PO SCH (21:01)
[2024-03-04] MEDS: DOCUSATE SODIUM/SENNA 50/8.6MG TAB PO SCH (21:01)
[2024-03-04] MEDS: ESCITALOPRAM OXALATE 20 MG TAB PO SCH (21:01)
[2024-03-04] MEDS: CEROVITE ADV FORMULA TAB PO SCH (21:01)
[2024-03-04] MEDS: TAMSULOSIN HCL 0.4 MG CAP PO SCH (21:01)
[2024-03-04] MEDS: EZETIMIBE 10 MG TAB PO SCH (21:02)
[2024-03-04] MEDS: LORazepam 0.5 MG TAB PO PRN (23:59)
[2024-03-05] MEDS: POLYETHYLENE (MIRALAX) 17 GM PACK PO SCH (05:58)
[2024-03-05 06:45] LABS: Basophils # (auto) 0.02 K/uL (0.00-0.20); Basophils % (auto) 0.1 %; Hematocrit (blood only) 29.4 % (42.0-52.0); Hemoglobin 9.8 g/dl (14.0-18.0); Immature Granulocytes # (auto) 0.09 K/uL (0.01-0.20); Immature Granulocytes % (auto) 0.7 %; Lymphocytes # (auto) 0.85 K/uL (1.20-3.40); Lymphocytes % (auto) 6.3 %; Mean Corpuscular Hgb Conc 33.3 g/dL (32.0-36.0); Mean Platelet Volume 10.4 fL (9.4-12.4); Monocytes % (auto) 8.1 %; Neutrophils # (auto) 11.54 K/uL (1.40-6.50); Neutrophils % (auto) 84.8 %; Platelet Count 102 K/uL (130-400); RDW Standard Deviation 46.5 fL (36.4-46.3); Red Blood Count 2.97 M/uL (4.70-6.10)
[2024-03-05 06:54] LABS: BUN Creatinine Ratio 16.2 (10-20); Calcium 8.5 mg/dl (8.6-10.3); Creatinine Clr Calc Pharmacy 71.8 ml/min; Est GFR (Non-African American) 68.1 ml/min; Potassium 4.7 mmol/L (3.5-5.1)
[2024-03-05 07:02] LABS: INR 1.1 (0.9-1.1); Prothrombin Time 12.1 Seconds (9.0-12.0)
[2024-03-05] MEDS: dexAMETHasone 6 MG in SYRINGE 0 ML IV SCH (08:20)
[2024-03-05] MEDS: CHOLECALCIFEROL 125 MCG (5,000 UNITS) TAB PO SCH (08:20)
[2024-03-05] MEDS: METOPROLOL SUCC 25MG EXT REL TAB PO SCH (08:20)
--- NOTE | 2024-03-05 09:00 | Orthopedic Progress Note ---
Date of Service March 05, 2024 Assessment & Plan (1) Neurogenic claudication due to lumbar spinal stenosis: Plan: This time we will initiate physical therapy monitor his LUIS output hopefully discharge home later after this weekend. Admission and Anticipated Discharge Date Admission Date: March 04, 2024 Subjective Patient back pain is controlled. Leg symptoms improved. Physical Exam Physical Exam: Patient is currently bed peers comfortable. Distracted testing. Results & Data Vital Signs (Past 12 Hours) Vital Signs Temp Pulse Resp BP BP Pulse Ox O2 Del Method 03/05/24 08:30 36.7 C 73 15 96/62 L 96 Room Air 03/05/24 03:28 36.5 C 75 16 99/64 L 94 Room Air 03/04/24 22:33 36.5 C 62 16 105/67 97 Room Air Queries Orthopedic Spine Acute Posthemorrhagic Anemia: Yes Obesity: Yes
--- NOTE | 2024-03-05 14:30 | Hospitalist Progress Note ---
Date of Service March 05, 2024 Assessment & Plan (1) Neurogenic claudication due to lumbar spinal stenosis: Plan: Status post L2-L5 lumbar decompression laminectomy on March 04, with fusion, instrumentation, bone graft. Postoperative day #1. Management by orthopedic spine surgery (2) Acute blood loss anemia: Plan: Hemoglobin 9.8 today. Will follow (3) History of aortic valve replacement with metallic valve: Plan: He had been off Coumadin for several weeks. Restarted last evening, March 04. INR 1.1 today. Cardiology management. (4) CAD (coronary artery disease): Plan: History of coronary artery bypass grafting with right internal mammary artery to the right coronary artery in 2001. He also underwent PCI to the LAD in 1994. He currently is chest pain-free. Continue beta-aravind therapy. Telemetry. (5) Chronic atrial fibrillation: Plan: Rate controlled. Coumadin has been restarted. Appreciate [facility] cardiology consultation and recommendations. Telemetry Plan Will see the patient daily while hospitalized for medical management. Admission and Anticipated Discharge Date Admission Date: March 04, 2024 Subjective Alert and oriented. No distress. Cardiology consultation appreciated. They are managing the Coumadin which has been restarted. INR is 1.1 today, March 05. Hemoglobin is down to 9.8 and will be followed. Some hematuria noted in the Sher catheter. Review of Systems 2 Review of Systems: Constitutional-no fever or chills ENT-no blurred vision, no double vision, no epistaxis, no sore throat Respiratory-no cough, no wheezing, no shortness of breath Cardiac-no palpitations, no chest pain, no syncope GI-no nausea, vomiting, diarrhea, melena, hematochezia -hematuria noted in Sher catheter. Musculoskeletal-lumbar area postoperative back discomfort as expected Skin-no bruising, no rashes, no pruritus Neuro-no isolated weakness, no paresthesia Psych-no depression, no anxiety Physical Exam 2 Physical Exam: General-alert and oriented x3, no fever, no chills. Obese HEENT-head atraumatic and normocephalic, pupils equal and reactive to light, extraocular muscles intact Neck-no lymphadenopathy or thyromegaly, trachea midline Chest-clear to auscultation. No rales, wheezing or rhonchi Cardiac-irregular rhythm with controlled rate. Normal S1 and S2 Abdomen-normal bowel sounds, no hepatosplenomegaly Extremities-no cyanosis, clubbing, or edema Neuro-cranial nerves II through XII intact, motor and sensory function within normal limits, strength symmetrical, no focal deficits Psych-normal affect, normal mood Results & Data Results & Data Vital Signs (Past 12 Hours) Vital Signs Temp Pulse Resp BP BP Pulse Ox O2 Del Method 03/05/24 11:50 37.0 C 82 17 140/82 96 Room Air 03/05/24 08:30 36.7 C 73 15 96/62 L 96 Room Air 03/05/24 03:28 36.5 C 75 16 99/64 L 94 Room Air Laboratory Results 03/05/24 05:39 03/05/24 05:39 PG Care Time/CCT Total # of Minutes Spent Total Time Spent with Patient: Total time spent is greater than 50% in coordination of care (as documented) at patient's floor/unit and/or counseling patient: Coding Level of Care Code 82086 SUB INP/OBS CARE 2/35MIN Diagnoses Neurogenic claudication due to lumbar spinal stenosis M48.062 Acute blood loss anemia D62 History of aortic valve replacement with metallic valve Z95.4 CAD (coronary artery disease) I25.10 Chronic atrial fibrillation I48.20
--- NOTE | 2024-03-05 16:32 | Cardiology Progress Note ---
Date of Service March 05, 2024 Assessment & Plan (1) Neurogenic claudication due to lumbar spinal stenosis: (2) Chronic atrial fibrillation: (3) History of aortic valve replacement with metallic valve: Plan: Patient has a history of persistent atrial fibrillation, stable coronary heart disease, and surgical aortic valve replacement with a [employer] mechanical prosthesis in 2001 at [facility]. Preoperatively, he had undergone a Lovenox bridge. His last dose of Coumadin had been taken on 02/27/2024. He started Lovenox 120 mg every 12 hours first dose on 03/01/2024 and last dose was on 03/03/2024 in preparation for surgery , 03/04/2024. INR 1.1 today, 03/05 Outpatient goal INR is 2.5-3.5 given the age of his aortic valve prosthesis. Continue coumadin load , home dose 5 mg daily. Check INR daily. Allow INR to come up slowly without heparin or lovenox bride postoperatively. Cardiology to sign off. Case reviewed with Dr Causey. Follow up with [facility] anticoagulation clinic [place] as outpatient. Admission and Anticipated Discharge Date Admission Date: March 04, 2024 Physical Exam Constitutional: WD/WN, vitals as above Respiratory: normal respiratory effort, lungs clear to auscultation Cardiovascular: Rate/Rhythm: + irregularly irregular Heart Sounds: normal S1 and normal S2 Extremities: no edema Gastrointestinal (Abdomen): normal bowel sounds, soft, nontender, no hepatosplenomegaly Neurologic: PERRL, EOMI, accommodation nl, no face palsy, no dysarthria Results & Data Vital Signs (Past 12 Hours) Vital Signs Temp Pulse Resp BP BP Pulse Ox O2 Del Method 03/05/24 15:03 37.3 C 92 H 18 111/62 95 Room Air 03/05/24 11:50 37.0 C 82 17 140/82 96 Room Air 03/05/24 08:30 36.7 C 73 15 96/62 L 96 Room Air
[2024-03-05] MEDS: WARFARIN SOD 5 MG TAB PO ONE (17:32)
[2024-03-06 07:42] LABS: INR 1.1 (0.9-1.1); Prothrombin Time 11.9 Seconds (9.0-12.0)
[2024-03-06] MEDS: oxyCODONE HCL IR 5 MG TAB (IMMEDIATE RELEASE) PO PRN (07:49)
--- NOTE | 2024-03-06 08:33 | Orthopedic Progress Note ---
Date of Service March 06, 2024 Assessment & Plan (1) Neurogenic claudication due to lumbar spinal stenosis: Plan: At this time continue physical therapy monitor his LUIS output anticipate discharge home Friday. Admission and Anticipated Discharge Date Admission Date: March 04, 2024 Subjective Patient's back pain is controlled. He is tolerating physical therapy. Leg pain improved. Physical Exam Physical Exam: On exam he is in the chair at the bedside. Is comfortable. Is consented testing. Results & Data Vital Signs (Past 12 Hours) Vital Signs Temp Pulse Resp BP Pulse Ox O2 Del Method 03/06/24 07:27 36.8 C 79 18 106/69 94 Room Air 03/05/24 22:28 37.2 C 85 16 118/80 96 Room Air Queries Orthopedic Spine Acute Posthemorrhagic Anemia: Yes Obesity: Yes
[2024-03-06 09:06] LABS: Basophils # (auto) 0.02 K/uL (0.00-0.20); Basophils % (auto) 0.1 %; Hematocrit (blood only) 27.6 % (42.0-52.0); Hemoglobin 9.1 g/dl (14.0-18.0); Immature Granulocytes # (auto) 0.13 K/uL (0.01-0.20); Immature Granulocytes % (auto) 0.7 %; Lymphocytes # (auto) 1.17 K/uL (1.20-3.40); Lymphocytes % (auto) 6.4 %; Mean Corpuscular Hemoglobin 32.9 pg (25.0-34.0); Mean Corpuscular Volume 99.6 fL (80.0-100.0); Mean Platelet Volume 10.3 fL (9.4-12.4); Monocytes % (auto) 10.5 %; Neutrophils # (auto) 14.94 K/uL (1.40-6.50); Neutrophils % (auto) 82.3 %; Platelet Count 113 K/uL (130-400); RDW Coefficient of Variation 13.7 % (11.5-14.5); Red Blood Count 2.77 M/uL (4.70-6.10); White Blood Count 18.16 K/ul (4.8-10.8)
[2024-03-06 09:11] LABS: Calcium 8.6 mg/dl (8.6-10.3); Creatinine Clr Calc Pharmacy 71.8 ml/min; Est GFR (Non-African American) 68.1 ml/min; Potassium 4.8 mmol/L (3.5-5.1)
--- NOTE | 2024-03-06 10:04 | Hospitalist Progress Note ---
Date of Service March 06, 2024 Assessment & Plan (1) Neurogenic claudication due to lumbar spinal stenosis: Plan: Status post L2-L5 lumbar decompression laminectomy on March 04, with fusion, instrumentation, bone graft. Postoperative day #2. Management by orthopedic spine surgery (2) Acute blood loss anemia: Plan: Hemoglobin level pending. Will follow (3) History of aortic valve replacement with metallic valve: Plan: He had been off Coumadin for several weeks. Restarted on March 04. INR 1.1 again today, March 06. Serial labs. Cardiology management. (4) CAD (coronary artery disease): Plan: History of coronary artery bypass grafting with right internal mammary artery to the right coronary artery in 2001. He also underwent PCI to the LAD in 1994. He currently is chest pain-free. Continue beta-aravind therapy. Telemetry. (5) Chronic atrial fibrillation: Plan: Rate controlled. Coumadin has been restarted. Appreciate [facility] cardiology consultation and recommendations. Telemetry Plan Will see the patient daily while hospitalized for medical management. Admission and Anticipated Discharge Date Admission Date: March 04, 2024 Subjective Alert and oriented. No distress. INR is 1.1 today, March 06. He remains on Coumadin which was restarted on March 04. He states he was able to ambulate in the hallway without difficulty Review of Systems 2 Review of Systems: Constitutional-no fever or chills ENT-no blurred vision, no double vision, no epistaxis, no sore throat Respiratory-no cough, no wheezing, no shortness of breath Cardiac-no palpitations, no chest pain, no syncope GI-no nausea, vomiting, diarrhea, melena, hematochezia -hematuria noted in Sher catheter. Musculoskeletal-lumbar area postoperative back discomfort as expected Skin-no bruising, no rashes, no pruritus Neuro-no isolated weakness, no paresthesia Psych-no depression, no anxiety Physical Exam 2 Physical Exam: General-alert and oriented x3, no fever, no chills. Obese HEENT-head atraumatic and normocephalic, pupils equal and reactive to light, extraocular muscles intact Neck-no lymphadenopathy or thyromegaly, trachea midline Chest-clear to auscultation. No rales, wheezing or rhonchi Cardiac-irregular rhythm with controlled rate. Normal S1 and S2 Abdomen-normal bowel sounds, no hepatosplenomegaly Extremities-no cyanosis, clubbing, or edema Neuro-cranial nerves II through XII intact, motor and sensory function within normal limits, strength symmetrical, no focal deficits Psych-normal affect, normal mood Results & Data Results & Data Vital Signs (Past 12 Hours) Vital Signs Temp Pulse Resp BP Pulse Ox O2 Del Method 03/06/24 07:27 36.8 C 79 18 106/69 94 Room Air 03/05/24 22:28 37.2 C 85 16 118/80 96 Room Air Laboratory Results 03/06/24 06:05 03/06/24 06:05 PG Care Time/CCT Total # of Minutes Spent Total Time Spent with Patient: Total time spent is greater than 50% in coordination of care (as documented) at patient's floor/unit and/or counseling patient: Coding Level of Care Code 73790 SUB INP/OBS CARE 3/50MIN Diagnoses Neurogenic claudication due to lumbar spinal stenosis M48.062 Acute blood loss anemia D62 History of aortic valve replacement with metallic valve Z95.4 CAD (coronary artery disease) I25.10 Chronic atrial fibrillation I48.20
[2024-03-06] MEDS: WARFARIN SOD 5 MG TAB PO SCH (16:07)
[2024-03-07 06:46] LABS: Basophils # (auto) 0.02 K/uL (0.00-0.20); Basophils % (auto) 0.1 %; Eosinophils # (auto) 0.01 K/uL (0.00-0.50); Eosinophils % (auto) 0.1 %; Hematocrit (blood only) 26.3 % (42.0-52.0); Hemoglobin 8.7 g/dl (14.0-18.0); Immature Granulocytes # (auto) 0.19 K/uL (0.01-0.20); Immature Granulocytes % (auto) 1.2 %; Lymphocytes # (auto) 1.29 K/uL (1.20-3.40); Lymphocytes % (auto) 8.1 %; Mean Corpuscular Hgb Conc 33.1 g/dL (32.0-36.0); Mean Corpuscular Volume 99.6 fL (80.0-100.0); Mean Platelet Volume 10.6 fL (9.4-12.4); Monocytes # (auto) 1.36 K/uL (0.11-0.59); Monocytes % (auto) 8.5 %; Neutrophils # (auto) 13.06 K/uL (1.40-6.50); Nucleated RBC # (auto) 0.03 K/uL (0.00-0.12); Nucleated RBC % (auto) 0.2 %; Platelet Count 106 K/uL (130-400); RDW Coefficient of Variation 13.9 % (11.5-14.5); RDW Standard Deviation 50.2 fL (36.4-46.3); Red Blood Count 2.64 M/uL (4.70-6.10); White Blood Count 15.93 K/ul (4.8-10.8)
[2024-03-07 07:07] LABS: BUN Creatinine Ratio 24.3 (10-20); Calcium 8.6 mg/dl (8.6-10.3); Creatinine Clr Calc Pharmacy 70.5 ml/min; Est GFR (African American) 77.2 ml/min; Est GFR (Non-African American) 66.6 ml/min; Potassium 4.7 mmol/L (3.5-5.1)
[2024-03-07 07:11] LABS: INR 1.1 (0.9-1.1); Prothrombin Time 11.7 Seconds (9.0-12.0)
--- NOTE | 2024-03-07 10:19 | Orthopedic Progress Note ---
Date of Service March 07, 2024 Assessment & Plan (1) Neurogenic claudication due to lumbar spinal stenosis: Plan: At this time we will continue physical therapy. Discontinue his drain this evening. Plan for discharge home tomorrow. Admission and Anticipated Discharge Date Admission Date: March 04, 2024 Subjective Back pain is controlled leg symptoms improved Physical Exam Physical Exam: Patient is in the chair at the bedside. He has presented testing. Appears comfortable. Results & Data Vital Signs (Past 12 Hours) Vital Signs Temp Pulse Resp BP Pulse Ox O2 Del Method 03/07/24 06:57 36.7 C 71 18 121/79 93 Room Air Queries Orthopedic Spine Acute Posthemorrhagic Anemia: Yes Obesity: Yes
--- NOTE | 2024-03-07 14:23 | Hospitalist Progress Note ---
Date of Service March 07, 2024 Assessment & Plan (1) Neurogenic claudication due to lumbar spinal stenosis: Plan: Status post L2-L5 lumbar decompression laminectomy on March 04, with fusion, instrumentation, bone graft. Postoperative day #3. Management by orthopedic spine surgery (2) Acute blood loss anemia: Plan: Hemoglobin level down to 8.7. Will follow. (3) History of aortic valve replacement with metallic valve: Plan: He had been off Coumadin for several weeks. Restarted on March 04. INR 1.1 again today, March 07. Serial labs. Cardiology management. (4) CAD (coronary artery disease): Plan: History of coronary artery bypass grafting with right internal mammary artery to the right coronary artery in 2001. He also underwent PCI to the LAD in 1994. He currently is chest pain-free. Continue beta-aravind therapy. Telemetry. (5) Chronic atrial fibrillation: Plan: Rate controlled. Coumadin has been restarted. Appreciate [facility] cardiology consultation and recommendations. Telemetry Plan Will see the patient daily while hospitalized for medical management. Probably home tomorrow, March 08, per primary service Admission and Anticipated Discharge Date Admission Date: March 04, 2024 Subjective Alert and oriented. No distress. Orthopedic spine entry noted. Probably home tomorrow, March 08. INR remains at 1.1. Continue Coumadin therapy. Hemoglobin down to 8.7 but no transfusion necessary at this time Review of Systems 2 Review of Systems: Constitutional-no fever or chills ENT-no blurred vision, no double vision, no epistaxis, no sore throat Respiratory-no cough, no wheezing, no shortness of breath Cardiac-no palpitations, no chest pain, no syncope GI-no nausea, vomiting, diarrhea, melena, hematochezia -hematuria noted in Sher catheter. Musculoskeletal-lumbar area postoperative back discomfort as expected Skin-no bruising, no rashes, no pruritus Neuro-no isolated weakness, no paresthesia Psych-no depression, no anxiety Physical Exam 2 Physical Exam: General-alert and oriented x3, no fever, no chills. Obese HEENT-head atraumatic and normocephalic, pupils equal and reactive to light, extraocular muscles intact Neck-no lymphadenopathy or thyromegaly, trachea midline Chest-clear to auscultation. No rales, wheezing or rhonchi Cardiac-irregular rhythm with controlled rate. Normal S1 and S2 Abdomen-normal bowel sounds, no hepatosplenomegaly Extremities-no cyanosis, clubbing, or edema Neuro-cranial nerves II through XII intact, motor and sensory function within normal limits, strength symmetrical, no focal deficits Psych-normal affect, normal mood Results & Data Results & Data Vital Signs (Past 12 Hours) Vital Signs Temp Pulse Resp BP Pulse Ox O2 Del Method 03/07/24 06:57 36.7 C 71 18 121/79 93 Room Air Laboratory Results 03/07/24 05:51 03/07/24 05:51 PG Care Time/CCT Total # of Minutes Spent Total Time Spent with Patient: Total time spent is greater than 50% in coordination of care (as documented) at patient's floor/unit and/or counseling patient: Coding Level of Care Code 58440 SUB INP/OBS CARE 2/35MIN Diagnoses Neurogenic claudication due to lumbar spinal stenosis M48.062 Acute blood loss anemia D62 History of aortic valve replacement with metallic valve Z95.4 CAD (coronary artery disease) I25.10 Chronic atrial fibrillation I48.20
[2024-03-08 06:29] LABS: Basophils # (auto) 0.02 K/uL (0.00-0.20); Basophils % (auto) 0.1 %; Eosinophils # (auto) 0.01 K/uL (0.00-0.50); Eosinophils % (auto) 0.1 %; Hematocrit (blood only) 23.9 % (42.0-52.0); Hemoglobin 7.9 g/dl (14.0-18.0); Immature Granulocytes # (auto) 0.26 K/uL (0.01-0.20); Immature Granulocytes % (auto) 1.8 %; Lymphocytes # (auto) 1.08 K/uL (1.20-3.40); Lymphocytes % (auto) 7.5 %; Mean Corpuscular Hemoglobin 32.8 pg (25.0-34.0); Mean Corpuscular Hgb Conc 33.1 g/dL (32.0-36.0); Mean Corpuscular Volume 99.2 fL (80.0-100.0); Mean Platelet Volume 10.5 fL (9.4-12.4); Monocytes # (auto) 1.05 K/uL (0.11-0.59); Monocytes % (auto) 7.3 %; Neutrophils # (auto) 12.06 K/uL (1.40-6.50); Neutrophils % (auto) 83.2 %; Nucleated RBC # (auto) 0.09 K/uL (0.00-0.12); Nucleated RBC % (auto) 0.6 %; Platelet Count 122 K/uL (130-400); RDW Coefficient of Variation 13.5 % (11.5-14.5); RDW Standard Deviation 48.4 fL (36.4-46.3); Red Blood Count 2.41 M/uL (4.70-6.10); White Blood Count 14.48 K/ul (4.8-10.8)
[2024-03-08 06:46] LABS: BUN Creatinine Ratio 21.3 (10-20); Calcium 8.2 mg/dl (8.6-10.3); Creatinine Clr Calc Pharmacy 69.8 ml/min; Est GFR (African American) 76.3 ml/min; Est GFR (Non-African American) 65.9 ml/min; Potassium 4.4 mmol/L (3.5-5.1)
[2024-03-08 06:50] LABS: Polychromasia 1+
[2024-03-08 06:57] LABS: INR 1.2 (0.9-1.1); Prothrombin Time 13.1 Seconds (9.0-12.0)
--- NOTE | 2024-03-08 09:56 | Discharge Summary ---
Date of Service March 08, 2024 Admission HPI Per Admitting Provider This is a 79-year-old male with persistent chronic persistent back and leg pain after failing course of nonoperative care is here for surgical invention. Principal Diagnosis Lumbar spinal stenosis with neurogenic claudication Discharge Data Allergies Allergy/AdvReac Type Severity Reaction Status Date / Time fexofenadine [From [facility]] Allergy had chest Verified 03/04/24 06:16 pain azithromycin AdvReac Diarrhea Verified 03/04/24 06:16 Consultations 03/04/24 13:03 Consult Hospitalist Routine 03/04/24 15:51 Consult Cardiology Routine Procedures Performed Operation Date: 03/04/24 07:30 Actual Procedures p L2-L5 Decompression and Fusion, Spinal Cord Monitoring(Not Applicable) - Óscar Lester DO Ordered Studies 03/04/24 [place] lumbar spine 2-3V Routine Hospital Course (1) Neurogenic claudication due to lumbar spinal stenosis: Patient underwent multilevel lumbar decompression fusion tolerated this well was taken to orthopedic for postoperative. Postop day 1 he is up and ambulating progressed throughout his hospital stay. She. Decreased probably. Pain well- controlled. Sepsis discharge home. Discharge orders instructions found in chart for further review. Total Time Total Time Spent Total Time Spent (In Minutes): 20 minutes Discharge Plan Discharge Items Patient Disposition: Home - Self-Care Reason For Visit: Spinal Stenosis, Lumbar Region with Neurogenic Discharge Diagnosis: Lumbar spinal stenosis with neurogenic claudication Activity: As commented below Non-emergency contact: Primary Care Provider Call non-emergency contact if: you have any medication questions Follow-up/Referrals: Alisson Gonzalez DO [Primary Care Provider] - Diet: Regular Addtl Attending Provider Instructions: ACTIVITY RECOMMENDATIONS: SELF CARE INSTRUCTIONS AFTER THORACIC/LUMBAR FUSIONS 1. You may walk to your tolerance. It is good exercise for your legs and back. Expect some back and intermittent leg aches and pains. 2. You may perform "counter-top" level activities (make a sandwich, koby with a project, etc.). 3. No bending or lifting of more than 10 pounds or back twisting of any nature (roll like a log when turning in bed). 4. You may ride in a car for 20-30 minutes at a time. No driving until after your first visit with your doctor. 5. Frequent changes of position and restricting sitting to 30 minutes at a time will help limit the amount of back spasms and stiffness you may experience. 6. You may discontinue the use of ambulatory aids (cane, crutches, etc.) once your strength and confidence allow. 7. You may printing screen assembler the shower and let water strike your incision when you arrive home at least once daily. Do not take a tub bath, sit in a hot tub or go into a swimming pool until after your first recheck in the office. SPECIAL CARE INSTRUCTIONS: VERY IMPORTANT TO READ AND REVIEW A. Your surgical incision has been closed with a cosmetic suture under the skin that will dissolve in about 6 weeks. In 14 days, you can use a pair of clean scissors and cut the suture that is left outside of the skin at the ends of your incision. 1. The small skin tapes can be removed 7 days after surgery if they have not fallen off by that point. 2. You may keep the wound open to air as much as possible to promote healing after post-op day number 5 unless told otherwise by your doctor. 3. If you think the wound looks like it is becoming infected (redness or worsening drainage) and/or you are experiencing fever, chill or worsening back pain and muscle spasms, contact the office so that we may evaluate you as soon as possible. B. Complications are uncommon, but please contact us if you have any signs or symptoms of: 1. wound infection (fever higher than 102.5 degrees F, redness, separation of wound, drainage, or increasing pain from the incision) 2. blood clots in legs (pain, swelling, redness and warmth in legs) 3. urinary tract infection (fever higher than 102.5 degrees F, burning upon urination or increased frequency of urination) 4. nerve problems (inability to walk on your toes or heels, numbness, loss of bowel or bladder control) 5. any other symptoms that concern you C. Please call the office at if you have any concerns or questions about your operation or recovery. D. No smoking! Smoking drastically decreases the chance of a solid fusion. E. Do not take any anti-inflammatory medications (Indocin, Advil, Motrin, Aspirin, Naprosyn, etc.) as these may inhibit the chance of a solid fusion. Tylenol is okay to take for pain. MANAGING PAIN AFTER SPINAL SURGERY 1. Narcotic medication is intended for short-term use and will be provided for surgical pain. Surgical pain usually lasts for a period of 4-6 weeks. Narcotic medication includes Percocet, Vicodin, Darvocet, Tylenol #3 or Lortab. 2. Longer-term pain is more appropriately treated with non-narcotic medication such as Tylenol ES. 3. Muscle spasm is not appropriately treated with narcotics. Muscle relaxers such as Soma, Flexeril or Skelaxin can be used along with Tylenol ES. 4. Remember that we all live with some "aches and pains". This is not unusual or uncommon after an injury or as we get older. a. Back pain is expected and may include muscle spasms for 4 to 6 weeks after surgery. The pain should gradually improve. If the pain worsens for no apparent reason, please contact the office. b. Intermittent leg pain may also be experienced and should not be concerned about unless it worsens for no apparent reason. If so, please contact the office. 5. We will provide appropriate medication within the normal guidelines of their prescribed use. We will also be very cautious and aware of potential abuse and extended duration of patients' medication needs. a. Pain medications are for your comfort and to assist with sleep and rest so that the tissue can heal. They are not provided in order to return to normal activity and should not be used through the day. To do so or worsening pain at night can result from ongoing tissue damage and development of tolerance to the prescribed medicine. 6. Please allow 2-3 days to process refills. Prescriptions will not be mailed but must be picked up at the office. FOLLOW UP VISIT: Keep your scheduled follow-up appointment. Any questions, please call the office at . Pending Studies at Discharge: No Stand-Alone Forms: My [employer], Smoking Cessation Medications and DC Order Prescriptions: New tramadol 50 mg tablet 50 mg PO Q6H PRN (Reason: pain, moderate) Qty: 30 0RF oxycodone 5 mg tablet 5 mg PO Q6H PRN (Reason: pain) Qty: 30 0RF Continued warfarin 5 mg tablet 5 - 7.5 mg PO DAILY Qty: 135 3RF Protocol: Dose Management Condition: Friday Dose/Route: 5 mg Instruction: 1 x 5 mg tablet Condition: Friday Dose/Route: 5 mg Instruction: 1 x 5 mg tablet Condition: Friday Dose/Route: 5 mg Instruction: 1 x 5 mg tablet Condition: Friday Dose/Route: 5 mg Instruction: 1 x 5 mg tablet Condition: Dose/Route: 5 mg Instruction: 1 x 5 mg tablet Condition: Friday Dose/Route: 5 mg Instruction: 1 x 5 mg tablet Condition: Friday Dose/Route: 5 mg Instruction: 1 x 5 mg tablet Protocol Text: Adjustment Start Date: Friday02/23/24 INR Value: 3.5 INR Date: 02/23/24 Recheck Date: 03/08/24 Patient Comments: currently on 5mg per day metoprolol succinate 25 mg tablet extended release 24 hr 25 mg PO QAM Patient Comments: ordered by Dr. Rooney ([facility] Cardiology)--verified in Epic on 07/10/23 tamsulosin 0.4 mg capsule 0.4 mg PO HS Qty: 90 3RF atorvastatin 80 mg tablet 80 mg PO QPM Qty: 90 3RF gabapentin 600 mg tablet 600 mg PO Q6H Qty: 120 5RF Rx Instructions: 600 mg PO q 6 hours; cetirizine 10 mg tablet 10 mg PO QPM fluticasone propionate [Flonase Allergy Relief] 50 mcg/actuation spray,suspension 1 spray intranasal DAILY PRN (Reason: congestion/allergies) Rx Instructions: administer into each nostril PreserVision Lutein 226 mg-200 unit -5 mg-0.8 mg capsule 1 cap PO BID acetaminophen 500 mg Capsule 1,000 mg PO Q6H PRN (Reason: Pain) amoxicillin 500 mg capsule 2,000 mg PO UD escitalopram oxalate 20 mg tablet 20 mg PO HS ezetimibe [Zetia] 10 mg tablet 10 mg PO QPM cholecalciferol (vitamin D3) [Vitamin D3] 125 mcg (5,000 unit) Tablet 125 mcg PO DAILY Discharge Orders: Discharge Order (Routine); Ordered 03/08/24 Ordered By: Óscar Lester Admission Data Admit Date/Time: 03/04/24 10:10 Attending Provider: Óscar Lester Admit Provider: Óscar Lester Primary Care Provider: Alisson Gonzalez Other Providers: Dutch Oliveros; Arlin Renee; Bashir Howe; Luis Alberto Riojas; Oleksandr Jackson; Aaron Shaw.; Will Mcnally; Stephanie Anderson; Marilee Rooney; Olivia Lanza; Arlin Melton; Olvin Godinez; Puneet Bhatt; Kenia Haines; Brooklyn Devlin; Jeaneth Lau; Hiram Wilson; Blu Wellington; Maria Ines Byrd
--- NOTE | 2024-03-08 13:14 | Cardiology Progress Note ---
Date of Service March 08, 2024 Assessment & Plan (1) Neurogenic claudication due to lumbar spinal stenosis: (2) Chronic atrial fibrillation: (3) History of aortic valve replacement with metallic valve: Plan: Patient has a history of persistent atrial fibrillation, stable coronary heart disease, and surgical aortic valve replacement with a [employer] mechanical prosthesis in 2001 at [facility]. Preoperatively, he had undergone a Lovenox bridge. His last dose of Coumadin had been taken on 02/27/2024. He started Lovenox 120 mg every 12 hours first dose on 03/01/2024 and last dose was on 03/03/2024 in preparation for surgery , 03/04/2024. INR 1.1 today, 03/05 Outpatient goal INR is 2.5-3.5 given the age of his aortic valve prosthesis. Continue coumadin load , home dose 5 mg daily. Check INR daily. Allow INR to come up slowly without heparin or lovenox bride postoperatively. Cardiology to sign off. Case reviewed with Dr Causey. Follow up with [facility] anticoagulation clinic [place] as outpatient. (4) Acute blood loss anemia: Plan 03/08/2024: -patient is doing well from cardiac perspective. -Discussed patient's HgB levels with him today and there is no evidence of aubrey bleeding or symptoms associated with a drop in HgB -Recommend that patient's labs be trended closely. If ortho and primary team intend to discharge today, spoke with patient to have repeat labs drawn OP renee rrow (order placed). If stable, and patient remains asymptomatic, will repeat in one week. -Reviewed red flag warnings that would warrant immediate presentation to the emergency department. Verbalizes understanding. -Continue all medications as previously discussed and plan for close follow up with Dr. Bhatt or AP in next 1-3 weeks. Case has been discussed with Dr. Jackson. Further recommendations regarding plan of care as per his assessment. I spent a total of 30 minutes on the date of service in preparation, delivery, documentation of the care provided to the patient excluding any time spent in the performance of separately billed services. KELSY Salcido [facility] Cardiology [facility] Admission and Anticipated Discharge Date Admission Date: March 04, 2024 Subjective 03/08/24: Patient seen and examined in follow up today due to notation of abnormal labs with a Hemoglobin of 7.9. patient is out of bed resting comfortably. He has just finished working with PT and Dr. Lester has just arrived to discuss discharge plan. Patient denies any chest pain, pressure, palpitations, no shortness of breath, no pre-syncopal or syncopal symptoms. Denies any hematuria, no blood in the stool, no nose bleeds. No new or unexplained bruising, no GI upset. INR 1.2 today. On Warfarin for oral AC due to hx of mechanical valve replacement and chronic A-fib. Labs, vitals, diagnostics, and documentation reviewed. Patient is not on telemetry. Review of Systems Review of Systems: All systems reviewed & are unremarkable except as noted in HPI & below Physical Exam Constitutional: WD/WN, vitals as above well developed and well nourished; no acute distress and not ill appearing Neck: normal visual inspection and trachea midline Respiratory: normal respiratory effort; no respiratory distress and no cough Auscultation: lungs clear to auscultation bilaterally; no crackles, no rales and no wheezes Cardiovascular: Rate/Rhythm: + irregularly irregular Heart Sounds: normal S1 and normal S2 Vessels: dorsalis pedis pulses present; no JVD Skin: no rashes, warm and dry (surgical incision site clean/dry/intact, well approximated, no discharge) Psychiatric: A+Ox3, euthymic affect Results & Data Vital Signs (Past 12 Hours) Vital Signs Temp Pulse Pulse Resp BP BP Pulse Ox 03/08/24 10:17 36.7 C 76 75 16 124/64 120/74 94 03/08/24 07:18 36.7 C 75 16 120/74 94 O2 Del Method 03/08/24 10:17 03/08/24 07:18 Room Air Laboratory Results Coagulation 03/08/24 Range/Units 05:55 PT 13.1 H (9.0-12.0) Seconds CBC 03/08/24 Range/Units 05:55 WBC 14.48 H (4.8-10.8) K/ul RBC 2.41 L (4.70-6.10) M/uL Hgb 7.9 L (14.0-18.0) g/dl Hct 23.9 L (42.0-52.0) % Plt Count 122 L (130-400) K/uL Neut # (Auto) 12.06 H (1.40-6.50) K/uL Lymph # (Auto) 1.08 L (1.20-3.40) K/uL [place] # (Auto) 1.05 H (0.11-0.59) K/uL Eos # (Auto) 0.01 (0.00-0.50) K/uL Baso # (Auto) 0.02 (0.00-0.20) K/uL Comprehensive Metabolic Panel 03/08/24 Range/Units 05:55 Sodium 138 (136-145) mmol/L Potassium 4.4 (3.5-5.1) mmol/L Chloride 108 H (98-107) mmol/L Carbon Dioxide 27 (21-32) mmol/L BUN 23 (6-23) mg/dl Creatinine 1.08 (0.6-1.4) mg/dl Glucose 134 H (70-99(Fasting)) mg/dl Calcium 8.2 L (8.6-10.3) mg/dl Intake and Output 03/07/24 03/08/24 03/08/24 22:59 06:59 14:59 Intake Total 1080 / 1080 Output Total 767 / 2317 1550 / 2317 Balance 313 / -1237 -1550 / -1237 Intake: Oral 1080 / 1080 Output: Urine 700 / 2250 1550 / 2250 Drain Output 65 / 65 Back LUIS 65 65 # Bowel Movements 2 / 2 Other: # Unmeasured Voids 1 Weight 112.9 kg Patient Weight 03/09/24 06:59 Weight 112.9 kg
== END 2024-03-08 13:09 | disposition home or self-care (01) | DRG 454 ==
LOC: ASU 05:40 → 3E 10:10

== ENCOUNTER 2024-03-22 13:34 | Inpatient (IN) ==
[2024-03-22] MEDS ORDERED: MoRPHine SULFATE 2 MG/ML CARP IV PRN (13:56)
[2024-03-22] MEDS: MoRPHine SULFATE 4 MG/ML 1 ML CARP\\VIAL IV PRN (14:22)
--- NOTE | 2024-03-22 14:41 | Emergency Department Note ---
Impression & Plan Epidural hematoma, Anticoagulant long-term use, Hypoxia ED Provider Note NAME: GIANCARLO CASTELAN III AGE: 79 SEX: M : 1945 ARRIVES VIA: Ambulance INFORMANT: Patient ED PROVIDER(S): Mauricio Yan DO CHIEF COMPLAINT: Back pain HPI: Patient is a 79-year-old male with a past medical history of aortic valve replacement, A-fib, hypertension, hyperlipidemia and CAD who presents the ER following lumbar surgery L2-L5 performed by Dr. Lester on 03/04. He notes that he has been anticoagulated with Coumadin. He fell on Friday and following this on Friday he has been walking with a walker and having severe pain in his lower back. Since the fall he has been having new lower extremity weakness in that left lower foot as well as in bilateral thighs. Patient notes that this is all been present since Friday. He had imaging at [facility] which showed on MRI hematoma which had impingement of the thecal sac. ADDITIONAL HISTORY OBTAINED: Per HPI Chronic Medical/Social Conditions Affecting Care: Per HPI PAST MEDICAL HISTORY:See Below PAST SURGICAL HISTORY:See Below FAMILY HISTORY:See Below SOCIAL HISTORY:See Below HOME MEDICATIONS:See Below ALLERGIES:See Below VITALS:See Below PHYSICAL EXAMINATION: GENERAL: Sitting up in bed, alert, disheveled, nontoxic EYE EXAM: normal conjunctiva. OROPHARYNX: mucous membranes are moist NECK: supple, no nuchal rigidity, no adenopathy, non-tender LUNGS: Clear to auscultation. Normal chest wall mechanics HEART: S1 normal and S2 normal ABDOMEN: abdomen soft, non-tender. UPPER EXTREMITIES: upper extremities are grossly normal. LOWER EXTREMITIES: Plantar dorsiflexion the right lower extremity is intact. Plantarflexion left lower extremity 4 out of 5. Dorsiflexion is extremely weak and he is only able to partially dorsiflex. Unable to flex at the hips bilaterally as he cannot lift either leg off the bed. NEURO EXAM: Normal sensorium, cranial nerves II-XII grossly intact, normal speech, no gross weakness of arms. MEDICAL DECISION MAKING: Patient is a 79-year-old male who presents to the ER following an extended stay at [facility] following a fall with a spinal hematoma 8cm in the surgical bed which was pushing on the thecal sac per external records which were reviewed by myself. He is on Coumadin with a mechanical aortic valve. He was given 5 mg of vitamin K prior to transfer by Dr. Farrell. I received a phone call and accepted him in transfer from Dr. Farrell from [facility] after he spoke with Dr. Lester who agreed. Dr. Lester accepted the patient and will admit him and take him to the OR. He will consult the hospitalist. He is postop 2 weeks from surgery by Dr. Lester. Upon arrival to the ER I evaluated the patient. I did contact Dr. Hamlin who noted that he will admit him and consult the hospitalist. I discussed the neuro exam with him as well currently. I spoke with Dr. Dutch Oliveros from the hospitalist service and he will evaluate him in consult. Following this I also discussed with Dr. Ayers who will consult with the aortic valve and coumadin. Patient was admitted and blood work was still not obtained due to IV not drawing. Lab is present at bedside. Patient was given IV morphine. Upon arrival he was found to be hypoxic still and upon review of their notes he was on 2 L nasal cannula at [facility]. We quentin lyndsay him on 2 L here and he moved from 87% to mid 90s. Will hold on any additional reversal at this time till INR results and will defer to admission team in combination with the hospitalist and map maker. Consults/Care Managements Discussions: Per MDM Triage Nursing notes reviewed. Limited review of prior medical records performed Vital Signs: reviewed and remarkable for no significant abnormalities Differential diagnosis: Musculoskeletal, disc herniation, fracture, metastatic disease, cord compression, discitis, sciatica, cauda equina, infection, aortic disease, renal colic, gastrointestinal, as well as other pathologies. ER treatment provided: See below Diagnostics interpreted by me include EKG and cardiac monitoring as listed below: -Cardiac Monitoring: An order was placed for continuous cardiac monitoring. The monitor shows a rate of 100 with sinus rhythm. -ECG: A-fib rate 99 Normal axis PVCs QTc 479 -Laboratory studies:Interpreted by me as stated above in MDM and shown below. Imaging studies: Xrays: As interpreted by me:none CTs show: none Procedures:none Critical Care: I have personally spent 33 minutes of critical care time in the direct management of this patient. This includes bedside care, interpretation of diagnostic studies, and testing, discussion with consultants, patient, and family members, and other required patient management activities. This 33 minutes is in excess of all separately billable procedures. Past Med/Surg History Problem List (Updated 03/22/24 @ 15:11 by Mauricio Yan DO) Hypoxia (Acute) Epidural hematoma (Acute) Acute blood loss anemia Chronic atrial fibrillation Neurogenic claudication due to lumbar spinal stenosis Head trauma Abrasion of leg, left Lumbar pain Left hip pain MCL sprain of right knee Right knee DJD Scattered rhonchi of right lung w/covid 10/2023 COVID-19 virus infection Macrocytic anemia Microscopic hematuria hx BPH w urinary obs/LUTS Chronic low back pain Deviated septum Onychomycosis of toenail hx History of aortic valve replacement with metallic valve done in conjunction w/ single CABG, [facility] [place] in 2001 TMJ arthralgia "occasional pain," used to click>but none for years; no hx locking Postherpetic neuralgia Acoustic neuroma (Chronic) Allergic rhinitis (Chronic) CAD (coronary artery disease) (Chronic) CABG x 1 with ANDRE to RCA in 2021, h/o stent to LAD in 1994 Depression (Chronic) GERD without esophagitis (Chronic) controlled, stable per pt Hyperlipidemia (Chronic) Essential hypertension (Chronic) controlled, stable per pt Macular degeneration (Chronic) Obesity (Chronic) Paroxysmal atrial fibrillation (Chronic) f/u dr. rooney, [facility]>"in charge of his atrial fib" Anticoagulant long-term use (Chronic) Medical History Allergies stated he was tested thru ENT and "is allergic to 49 things he was tested for, all environmental." Hx of migraines none for last 20 years History of COVID-19 10/2023, tested at PCP, not hosp; mild symptoms w/cough, loss of taste/smell>resolved Surgical History Hx laparoscopic cholecystectomy History of intestinal surgery ~1975 or 1976, obstruction/bowel "pinched off," removed small segment of bowel along with appendix History of esophagogastroduodenoscopy (EGD) H/O heart artery stent ~1995, pain down backs of arms and chest pain-abn stress test, [place], x1 stent placed LAD S/P inguinal hernia repair left S/P appendectomy taken w/bowel resection S/P cardiac cath ~1995, pain down backs of arms and chest pain-abn stress test, [place], x1 stent placed LAD S/P cataract extraction bilateral S/P colonoscopy 02/17/2013 repeat 10yrs S/P CABG (coronary artery bypass graft) (2001) x 1 ANDRE to RCA + AVR, [facility] [place]; f/u dr. fay, s regcelina Family History Father Hypertension Heart disease CHF (congestive heart failure) Myocardial infarction Mother CHF (congestive heart failure) Aunt CHF (congestive heart failure) Diabetes Uncle CHF (congestive heart failure) Myocardial infarction Uncle CHF (congestive heart failure) Myocardial infarction Denies family history of Ovarian cancer Prostate cancer Breast cancer Colorectal cancer Stroke Social History Smoking Status: Never smoker Tobacco Type: Smokeless Tobacco (Dip or Chew) Age Started Using Tobacco: 21; Age Quit Using Tobacco: 28; packs per day: 2; Second Hand Exposure: Yes (hx); Do You Dip or Chew Tobacco: Yes (1 can/2 days; advised); Hx Alcohol Use: Yes Alcohol type: beer, wine and hard liquor Alcohol Intake Frequency: 2-4 x/Month Hx Substance Use: No Preferred Language: Arabic Communication Ability: Effective Visual Impairment: Partially Limited Hearing Ability: Hard of Hearing Quality Control Representative Required: No Beliefs That Will Affect Care: None marital status: Current Living Situation: Spouse and Family Current Living Situation Comment: lives with spouse and son current occupational status: retired current occupation: Worked at [employer] How many Children do You have: 2 Feels Safe at Home: Yes Childhood Exposure to Second-Hand Smoke: Yes caffeine: Yes (coffee daily/soda occasionally) Dental Care, Regularly: Yes Physical Activity Frequency: Does not Exercise Seatbelt Use: always Sunscreen Use: No Do you think of yourself as: straight/heterosexual Assistive Devices: Bedside Commode, Cane, Lift Chair, Raised Toilet Seat and Walker Allergies Allergies Allergy/AdvReac Type Severity Reaction Status Date / Time fexofenadine [From [facility]] Allergy had chest Verified 03/12/24 10:42 pain azithromycin AdvReac Diarrhea Verified 03/12/24 10:42 Home Meds Home Medications Medication Instructions Recorded Confirmed cetirizine 10 mg tablet 10 mg PO QPM 06/14/19 03/12/24 vit C 226 mg-vit E 90 mg-copper 1 cap PO BID 06/30/19 03/12/24 0.8 mg-zinc oxide-lutein 5 mg capsule (PreserVision Lutein) metoprolol succinate 25 mg 25 mg PO QAM 07/10/23 03/12/24 tablet,extended release 24 hr fluticasone propionate 50 1 spray intranasal DAILY PRN 07/16/23 03/12/24 mcg/actuation nasal congestion/allergies spray,suspension (Flonase Allergy Relief) acetaminophen 500 mg capsule 1,000 mg PO Q6H PRN Pain 01/13/24 03/12/24 amoxicillin 500 mg capsule 2,000 mg PO UD prior to dental 01/13/24 03/12/24 procedures escitalopram oxalate 20 mg tablet 20 mg PO HS 01/13/24 03/12/24 ezetimibe 10 mg tablet (Zetia) 10 mg PO QPM 01/13/24 03/12/24 cholecalciferol (vitamin D3) 125 125 mcg PO DAILY 03/04/24 03/12/24 mcg (5,000 unit) tablet (Vitamin D3) Previous Rx's Medication Instructions Recorded warfarin 5 mg tablet 5 - 7.5 mg PO DAILY #135 tabs 03/10/23 tamsulosin 0.4 mg capsule 0.4 mg PO HS #90 caps 12/09/23 atorvastatin 80 mg tablet 80 mg PO QPM #90 tabs 01/12/24 gabapentin 600 mg tablet 600 mg PO Q6H #120 tabs 02/02/24 oxycodone 5 mg tablet 5 mg PO Q6H PRN pain #30 tabs 03/05/24 tramadol 50 mg tablet 50 mg PO Q6H PRN pain, moderate 03/05/24 #30 tabs Results & Data (ED) Vital Signs Vital Signs - 24 hr 03/22/24 13:39 03/22/24 13:39 Temperature 37.5 C Temperature Source Oral Pulse Rate 87 Pulse Rhythm Regular Pulse Strength Normal Respiratory Rate 18 Respiratory Effort / Characteristics Non-Labored Spontaneous Respiratory Depth Normal Respiratory Pattern Regular Blood Pressure 136/79 Blood Pressure Mean 98 Pulse Oximetry 97 95 Oxygen Delivery Method Room Air Room Air Sepsis Recent Fever Within 48 Hours No Sepsis New/Unexplained Change in Mental Status No Sepsis Action Taken by Nursing No Action Required Administered Medications Morphine Sulfate (Morphine Sulfate 4 Mg/Ml 1 Ml Carp\\Vial) 4 mg IV Q1H PRN PRN Reason: Severe Pain (Rating 7,8,9,10) Stop: 04/05/24 13:55 Last Admin: 03/22/24 14:22 Dose: 4 mg Documented By: [facility] Discharge Plan Visit Data Chief Complaint: Fall Stated Complaint: TRANSFER FROM [facility] ED Provider: Mauricio Yan Discharge Problem: Epidural hematoma, Anticoagulant long-term use, Hypoxia Forms Stand Alone Forms: [facility] Prescriptions Prescriptions: No Action warfarin 5 mg tablet 5 - 7.5 mg PO DAILY Qty: 135 3RF Protocol: Dose Management Condition: Friday Dose/Route: 5 mg Instruction: 1 x 5 mg tablet Condition: Friday Dose/Route: 5 mg Instruction: 1 x 5 mg tablet Condition: Friday Dose/Route: 5 mg Instruction: 1 x 5 mg tablet Condition: Friday Dose/Route: 5 mg Instruction: 1 x 5 mg tablet Condition: Dose/Route: 5 mg Instruction: 1 x 5 mg tablet Condition: Friday Dose/Route: 5 mg Instruction: 1 x 5 mg tablet Condition: Friday Dose/Route: 5 mg Instruction: 1 x 5 mg tablet Protocol Text: Adjustment Start Date: Friday03/19/24 INR Value: 2.9 INR Date: 03/19/24 Recheck Date: 03/26/24 Patient Comments: currently on 5mg per day metoprolol succinate 25 mg tablet extended release 24 hr 25 mg PO QAM Patient Comments: ordered by Dr. Rooney ([facility])--verified in Epic on 07/10/23 tamsulosin 0.4 mg capsule 0.4 mg PO HS Qty: 90 3RF atorvastatin 80 mg tablet 80 mg PO QPM Qty: 90 3RF gabapentin 600 mg tablet 600 mg PO Q6H Qty: 120 5RF Rx Instructions: 600 mg PO q 6 hours; cetirizine 10 mg tablet 10 mg PO QPM fluticasone propionate [Flonase Allergy Relief] 50 mcg/actuation spray,suspension 1 spray intranasal DAILY PRN (Reason: congestion/allergies) Rx Instructions: administer into each nostril PreserVision Lutein 226 mg-200 unit -5 mg-0.8 mg capsule 1 cap PO BID acetaminophen 500 mg Capsule 1,000 mg PO Q6H PRN (Reason: Pain) amoxicillin 500 mg capsule 2,000 mg PO UD escitalopram oxalate 20 mg tablet 20 mg PO HS ezetimibe [Zetia] 10 mg tablet 10 mg PO QPM cholecalciferol (vitamin D3) [Vitamin D3] 125 mcg (5,000 unit) Tablet 125 mcg PO DAILY tramadol 50 mg tablet 50 mg PO Q6H PRN (Reason: pain, moderate) Qty: 30 0RF oxycodone 5 mg tablet 5 mg PO Q6H PRN (Reason: pain) Qty: 30 0RF Referrals Referrals: PCP,NO [Physician] -
[2024-03-22 15:30] LABS: Basophils # (auto) 0.04 K/uL (0.00-0.20); Basophils % (auto) 0.5 %; Eosinophils # (auto) 0.43 K/uL (0.00-0.50); Eosinophils % (auto) 5.2 %; Hematocrit (blood only) 27.9 % (42.0-52.0); Hemoglobin 8.9 g/dl (14.0-18.0); Immature Granulocytes # (auto) 0.04 K/uL (0.01-0.20); Immature Granulocytes % (auto) 0.5 %; Lymphocytes # (auto) 0.79 K/uL (1.20-3.40); Lymphocytes % (auto) 9.6 %; Mean Corpuscular Hemoglobin 32.7 pg (25.0-34.0); Mean Corpuscular Hgb Conc 31.9 g/dL (32.0-36.0); Mean Corpuscular Volume 102.6 fL (80.0-100.0); Monocytes % (auto) 10.9 %; Neutrophils # (auto) 6.05 K/uL (1.40-6.50); Neutrophils % (auto) 73.3 %; Platelet Count 186 K/uL (130-400); RDW Coefficient of Variation 15.2 % (11.5-14.5); Red Blood Count 2.72 M/uL (4.70-6.10); White Blood Count 8.25 K/ul (4.8-10.8)
[2024-03-22 15:42] LABS: Albumin Globulin Ratio 1.1 (0.9-2); Albumin Level 3.4 gm/dl (3.4-5.0); BUN Creatinine Ratio 14.3 (10-20); Bilirubin,Total 1.4 mg/dl (0.2-1.0); Calcium 8.7 mg/dl (8.6-10.3); Creatinine Clr Calc Pharmacy 78.8 ml/min; Est GFR (African American) 85.8 ml/min; Est GFR (Non-African American) 74.1 ml/min; Globulin 3.1 gm/dl (2.5-4.0); Potassium 4.3 mmol/L (3.5-5.1); Total Protein 6.5 gm/dl (6.0-8.3)
[2024-03-22 15:51] LABS: INR 2.1 (0.9-1.1)
--- NOTE | 2024-03-22 16:47 | Hospitalist Consultation ---
Date of Consultation March 22, 2024 Assessment & Plan (1) Fall: Patient fell onto left hip on 03/17, then developed severe lower back pain and worsening lower extremity numbness on 03/19 Recent L2-L5 spine surgery with Dr. Lester on 03/04 1 episode of urinary retention followed by urinary incontinence on 03/22 Patient had an MRI at [place] which showed large 8.5cm hematoma with impingement of the thecal sac Plan is to go to the OR with Dr. Lester on 03/23 for I&D Perioperative antibiotics, pain control, fluids, and DVT PPx per the primary team Neurovascular checks q4h Bedrest Added on a.m. CBC, BMP, PT/INR; we will continue to follow (2) Epidural hematoma: Plan (as above) (3) Paroxysmal atrial fibrillation: INR elevated at 2.1 Patient reportedly received vitamin K 5mg in [place] Coumadin for now; will re-check PT/INR tonight with goal to decrease INR while preventing aortic valve thrombosis (4) History of aortic valve replacement with metallic valve: In 2001 Follows with [facility] Cardiology Cardiology consulted for preop clearance (5) Anemia: Hgb 8.9 on arrival In the setting of acute blood loss anemia secondary to surgery on 03/04 Type & Screen ordered No signs of active bleeding on clinical exam Recheck A.m. CBC (6) Essential hypertension: Continue metoprolol (7) Hyperlipidemia: Continue atorvastatin, ezetimibe Plan Plan is to go to the OR with Dr. Lester on 03/23; agree with current medical decision making: Regular diet, then n.p.o. at midnight VTE PPx: SCDs/teds Thank you for allowing us to participate in the care of this patient, please reach out with any questions or concerns; we will continue to follow. Supervising Physician Co-Signing Physician Notes I personally saw and examined the patient. I independently reviewed the labs, EKG, imaging, problem list, medication list, past medical history and family history. I verified all lebron points and agree with Harrison Rebolledo PA-C with the following exceptions and/or additions: 79 year old with epidural hematoma. Vitamin K and anticoagulation management per cardiology recommendations. Continue metoprolol perioperatively. Plan to continue with surgery as planned tomorrow as long as INR in accetable range. HS irregular rhythm, no murmurs, Chest CTAB, Abdo SNT History of Present Illness Reason for Consultation: Medical management Requesting Physician: Dr. Óscar Lester Attending Physician: Dr. Óscar Lester History of Present Illness José Luis is a 79-year-old male with PMH of paroxysmal atrial fibrillation (on Coumadin), aortic valve replacement with metallic valve, HTN, HLD, GERD, CAD, depression, and neurogenic claudication due to lumbar spinal stenosis. Recent back L2-L5 lumbar spine surgery with Dr. Lester on 03/04. Patient fell and struck his right hip on 03/17 when trying to break up a scuffle between his 2 cats; on blood thinners. He then began to develop worsening lower back pain on 03/19 and noticed left foot numbness. This pain developed into constant bilateral lower back pain which she rates 10/10 at present. He has been taking oxycodone (2 tablets daily) at home for the pain, which she reports helps. The pain radiates down both legs bilaterally. He also notes bilateral hip pain, and numbness and tingling down the legs bilaterally. No radiation up the back. Patient notes he had 1 episode of urinary retention followed by incontinence today on 03/22; this is new for him. He is unsure when his last bowel movement was. Patient took all of his regular morning medications today; no recent change in medications. No supplemental oxygen or CPAP at night. Patient is mildly tachycardic at 102 bpm, and SpO2 is 95% on 2L NC at time of consult. ED course: Morphine sulfate 4 mg IV ROS: Patient endorses b/l lower back pain and hip pain with radiation down the legs, numbness/tingling in the legs, intermittent [place], pleuritic CP (which patient reports has been ongoing), abdominal pain (last night; resolved), an episode of urinary retention followed by incontinence on 03/22 (which is new for him). Patient denies fever, chills, night-sweats, dizziness, lightheadedness, chest pain, SOB, cough, hemoptysis, N/V/D, blood in urine/stool, melena, saddle anesthesia, dysuria, or pain with defecation. Patient was initially hoping to be a direct admit from [facility], but no beds were available. Per EMS notes, patient had MRI done at [facility] which revealed a large 8.5 cm hematoma at the surgical site. It also noted that he was given vitamin K prior to arrival. Allergies Allergy/AdvReac Type Severity Reaction Status Date / Time fexofenadine [From Milla] Allergy had chest Verified 03/22/24 15:04 pain azithromycin AdvReac Diarrhea Verified 03/22/24 15:04 Home Medications Medication Instructions Recorded Confirmed Type cetirizine 10 mg tablet 10 mg PO QPM 06/14/19 03/22/24 History vit C 226 mg-vit E 90 mg-copper 1 cap PO BID 06/30/19 03/22/24 History 0.8 mg-zinc oxide-lutein 5 mg capsule (PreserVision Lutein) metoprolol succinate 25 mg 25 mg PO QAM 07/10/23 03/22/24 History tablet,extended release 24 hr fluticasone propionate 50 1 spray intranasal DAILY PRN 07/16/23 03/22/24 History mcg/actuation nasal congestion/allergies spray,suspension (Flonase Allergy Relief) tamsulosin 0.4 mg capsule 0.4 mg PO HS #90 caps 12/09/23 03/22/24 Rx atorvastatin 80 mg tablet 80 mg PO QPM #90 tabs 01/12/24 03/22/24 Rx acetaminophen 500 mg capsule 1,000 mg PO Q6H PRN Pain 01/13/24 03/22/24 History amoxicillin 500 mg capsule 2,000 mg PO UD prior to dental 01/13/24 03/22/24 History procedures escitalopram oxalate 20 mg tablet 20 mg PO HS 01/13/24 03/22/24 History ezetimibe 10 mg tablet (Zetia) 10 mg PO QPM 01/13/24 03/22/24 History gabapentin 600 mg tablet 600 mg PO Q6H #120 tabs 02/02/24 03/22/24 Rx cholecalciferol (vitamin D3) 125 125 mcg PO DAILY 03/04/24 03/22/24 History mcg (5,000 unit) tablet (Vitamin D3) oxycodone 5 mg tablet 5 mg PO Q6H PRN pain #30 tabs 03/05/24 03/22/24 Rx tramadol 50 mg tablet 50 mg PO Q6H PRN pain, moderate 05/17/24 06/03/24 Rx #30 tabs warfarin 5 mg tablet 5 mg PO QPM 03/22/24 03/22/24 History oxycodone 5 mg tablet 5 mg PO Q6H PRN pain #30 tabs 03/26/24 Rx tramadol 50 mg tablet 50 mg PO Q6H PRN pain, moderate 03/26/24 Rx #30 tabs Patient History Medical History Allergies stated he was tested thru ENT and "is allergic to 49 things he was tested for, all environmental." Hx of migraines none for last 20 years History of COVID-19 10/2023, tested at PCP, not hosp; mild symptoms w/cough, loss of taste/smell>resolved Surgical History Hx laparoscopic cholecystectomy History of intestinal surgery ~1975 or 1976, obstruction/bowel "pinched off," removed small segment of bowel along with appendix History of esophagogastroduodenoscopy (EGD) H/O heart artery stent ~1995, pain down backs of arms and chest pain-abn stress test, [place], x1 stent placed LAD S/P inguinal hernia repair left S/P appendectomy taken w/bowel resection S/P cardiac cath ~1995, pain down backs of arms and chest pain-abn stress test, [place], x1 stent placed LAD S/P cataract extraction bilateral S/P colonoscopy 02/17/2013 repeat 10yrs S/P CABG (coronary artery bypass graft) (2001) x 1 ANDRE to RCA + AVR, [facility]; f/u dr. fay, nolvia finneyauburnemmanuel Family History Father Hypertension Heart disease CHF (congestive heart failure) Myocardial infarction Mother CHF (congestive heart failure) Aunt CHF (congestive heart failure) Diabetes Uncle CHF (congestive heart failure) Myocardial infarction Uncle CHF (congestive heart failure) Myocardial infarction Denies family history of Ovarian cancer Prostate cancer Breast cancer Colorectal cancer Stroke Social History Smoking Status: Never smoker Tobacco Type: Smokeless Tobacco (Dip or Chew) Age Started Using Tobacco: 21; Age Quit Using Tobacco: 28; packs per day: 2; Second Hand Exposure: Yes (hx); Do You Dip or Chew Tobacco: Yes; Hx Alcohol Use: Yes Alcohol type: beer, wine and hard liquor Alcohol Intake Frequency: 2-4 x/Month Hx Substance Use: No Preferred Language: Welsh Communication Ability: Effective Communication Ability Comment: Drowsy during admission Visual Impairment: Partially Limited Hearing Ability: Hard of Hearing 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 Beliefs That Will Affect Care: None marital status: Current Living Situation: Spouse Current Living Situation Comment: lives with spouse and son current occupational status: retired current occupation: Worked at [employer] How many Children do You have: 2 Feels Safe at Home: Yes Childhood Exposure to Second-Hand Smoke: Yes caffeine: Yes (coffee daily/soda occasionally) Dental Care, Regularly: Yes Physical Activity Frequency: Does not Exercise Seatbelt Use: always Sunscreen Use: No Do you think of yourself as: straight/heterosexual Assistive Devices: Cane, Lift Chair, Raised Toilet Seat, Walker and Wheelchair Review of Systems Review of Systems: See HPI above Physical Exam Physical Exam: General: Acute physical distress secondary to lower back pain; non-toxic appearing; well-nourished; cooperative; SpO2 94% on 2 LNC HEENT: normocephalic, atraumatic; no scleral icterus; PERRLA; moist mucus membrane; vision and hearing grossly intact Neck: supple; no lymphadenopathy; trachea midline Skin: warm, dry without signs of tenting; no cyanosis; no rashes, lesions, or erythema noted CV: chest wall NTP; irregularly irregular rhythm at 94 bpm; S1/S2 normal; no murmurs/rubs/gallops; pulses intact and symmetric at radial, DP, and PT Lungs: Conversationally dyspneic; symmetrical chest wall expansion; clear breath sounds across all lung dean w/o adventitious sounds; no wheezing ABD: Soft; mildly TTP in all 4 quadrants; BS present; no rebound/guarding; mild distention secondary to body habitus; bruising on the RLQ MSK: Hips NTP bilaterally; no tics or fasciculations; no edema noted in the LEs b/l, nonerythematous; patient demonstrates ability to wiggle toes, plantarflex, and dorsiflex bilaterally Neuro: A&Ox3; normal mood and affect; fluent speech; no focal deficits; sensation intact and symmetric in the LEs b/l measured at several points extending from feet up to the thighs via light touch Results & Data Results & Data Vital Signs (Past 12 Hours) Vital Signs Temp Pulse Pulse Resp BP BP Pulse Ox 03/22/24 15:23 102 H 24 113/83 95 03/22/24 13:55 100 H 03/22/24 13:39 95 03/22/24 13:39 37.5 C 87 18 136/79 97 O2 Del Method O2 Flow Rate 03/22/24 15:23 Nasal Cannula 2 03/22/24 13:55 03/22/24 13:39 Room Air 03/22/24 13:39 Room Air Laboratory Results Abnormal lab results 03/22/24 Range/Units 15:07 RBC 2.72 L (4.70-6.10) M/uL Hgb 8.9 L (14.0-18.0) g/dl Hct 27.9 L (42.0-52.0) % MCV 102.6 H (80.0-100.0) fL MCHC 31.9 L (32.0-36.0) g/dL RDW Std Deviation 57.0 H (36.4-46.3) fL RDW Coeff of Donaldo 15.2 H (11.5-14.5) % MPV 9.0 L (9.4-12.4) fL Lymph # (Auto) 0.79 L (1.20-3.40) K/uL [place] # (Auto) 0.90 H (0.11-0.59) K/uL PT 21.0 H (9.0-12.0) Seconds INR 2.1 H (0.9-1.1) Total Bilirubin 1.4 H (0.2-1.0) mg/dl PG Care Time/CCT Total # of Minutes Spent Total Time Spent with Patient: Total time spent is greater than 50% in coordination of care (as documented) at patient's floor/unit and/or counseling patient: [place] [address] IN/OBS CONSULT LVL 4,60M Patient Type Established Medical Decision Making High Complexity Diagnoses Fall W19.XXXA Epidural hematoma S06.4XAA Paroxysmal atrial fibrillation I48.0 History of aortic valve replacement with metallic valve Z95.4 Anemia D64.9 Essential hypertension I10 Hyperlipidemia E78.5
[2024-03-22] MEDS ORDERED: traMADol HCL 50 MG TABLET PO PRN (17:38)
[2024-03-22] MEDS ORDERED: NALOXONE HCL 0.4 MG/1 ML VIAL/CARP IV PRN (17:38)
[2024-03-22] MEDS ORDERED: PROMETHAZINE HCL 12.5 MG in SODIUM CHLORIDE 0.9% 50 ML IV PRN (17:38)
[2024-03-22] MEDS ORDERED: LORazepam 0.5 MG in SYRINGE 0.25 ML IV PRN (17:38)
[2024-03-22] MEDS ORDERED: ACETAMINOPHEN 500 MG TAB PO PRN (17:38)
[2024-03-22] MEDS ORDERED: METOCLOPRAMIDE HCL INJ 5 MG/ML 2 ML VIAL IV PRN (17:38)
[2024-03-22] MEDS ORDERED: ONDANSETRON 4 MG OD TAB PO PRN (17:38)
[2024-03-22] MEDS ORDERED: ONDANSETRON INJ 2 MG/ML 2 ML VIAL IV PRN (17:38)
[2024-03-22] MEDS ORDERED: LORazepam 0.5 MG TAB PO PRN (17:38)
[2024-03-22] MEDS ORDERED: ACETAMINOPHEN 1,000 MG/100 ML VIAL IV PRN (17:38)
[2024-03-22] MEDS ORDERED: HYDROmorphone INJ 0.5 MG/0.5 ML SYR IV PRN (17:38)
[2024-03-22] MEDS: LACTATED RINGER'S 1,000 ML IV SCH (17:50)
[2024-03-22] MEDS: GABAPENTIN 600 MG TAB PO SCH ×2 (17:53→23:37)
--- NOTE | 2024-03-22 18:20 | Cardiology Consultation ---
Date of Consultation March 22, 2024 Assessment & Plan (1) Epidural hematoma: (2) Acute blood loss anemia: (3) Chronic atrial fibrillation: (4) History of aortic valve replacement with metallic valve: INR 3.3 at 3:14 AM on 03/22/2024 at [facility], down to 2.1 as of 1507 having received 5 mg of IV vitamin K. Recommend repeat INR to be performed at 1900 I will determine need for additional vitamin K at that time with goal INR of 1.5 or less for surgery. As noted, patient has a mechanical aortic valve prosthesis that is 23 years old as well as permanent atrial fibrillation and is at significant risk for thrombotic cardiac event, however given spinal hematoma, anticoagulation needs to be reversed. Favor starting with IV vitamin K rather than complete reversal with Kcentra for now. Tentative plan is for spinal surgery tomorrow. Although EKG has new subtle repolarization abnormalities, this is probably because of myocardial strain in the setting of anemia and his noncardiac acute illness, would not delay spine surgery for further cardiac testing. History of Present Illness Attending Physician: Óscar Lester DO History of Present Illness José Luis Riojas is a 79-year-old male seen in cardiology consultation per the request of Dr. Yan for advice with regards to anticoagulation in the setting of longstanding permanent atrial fibrillation, mechanical aortic valve pro sthesis, and newly recognized epidural hematoma. 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 The patient was seen and hospital consultation at [facility] by the undersigned on 03/04/2024, having had lumbar spine surgery earlier that day. Prior to surgery he received a Lovenox bridge with final dose of Lovenox the day before surgery. Postoperatively, he was prescribed his home dose of Coumadin 5 mg daily to allow for his INR to come back up to his goal of 2.5-3.5. The patient states that he was doing relatively well until 03/19/2024 when he developed low back pain and leg weakness. His INR has been followed closely as an outpatient, with relatively stable recent measurements. Early this morning the patient presented to [facility] with the above symptoms. INR as drawn on 03/22/2024 at 3:14 AM was 3.3. Imaging including plain x-rays of the lumbar spine obtained and subsequently he had undergone a CT of the cervical spine, chest, abdomen and pelvis followed by an MRI of the lumbar spine. MRI of the lumbar spine revealed postsurgical changes and a large acute/subacute hematoma at the operative site measuring 8.5 cm craniocaudal dimension with epidural hematoma at the adjacent lumbar levels. Mass effect on the thecal sac with severe thecal sac narrowing and compression of cauda equina nerve roots noted in the MRI report patient subsequently tra nsferred to this institution having received a dose of 5 mg of IV vitamin K. During my assessment, patient hemodynamically stable, but uncomfortable. Lying supine. Telemetry reveals atrial fibrillation with rates in the range of 90s to 100 bpm. History: 1. Persistent atrial fibrillation (no longer on Sotalol) 2. Aortic stenosis with a [facility] mechanical aortic valve replacement in 2001 at [facility] 3. CAD with CABG x 1 with a ANDRE to the RCA in 2001 & previous stent to the LAD in 1994 at [facility] 4. HTN 5. HLD Allergies Allergy/AdvReac Type Severity Reaction Status Date / Time fexofenadine [From Milla] Allergy had chest Verified 03/22/24 15:04 pain azithromycin AdvReac Diarrhea Verified 03/22/24 15:04 Home Medications Medication Instructions Recorded Confirmed Type cetirizine 10 mg tablet 10 mg PO QPM 06/14/19 03/22/24 History vit C 226 mg-vit E 90 mg-copper 1 cap PO BID 06/30/19 03/22/24 History 0.8 mg-zinc oxide-lutein 5 mg capsule (PreserVision Lutein) metoprolol succinate 25 mg 25 mg PO QAM 07/10/23 03/22/24 History tablet,extended release 24 hr fluticasone propionate 50 1 spray intranasal DAILY PRN 07/16/23 03/22/24 History mcg/actuation nasal congestion/allergies spray,suspension (Flonase Allergy Relief) tamsulosin 0.4 mg capsule 0.4 mg PO HS #90 caps 12/09/23 03/22/24 Rx atorvastatin 80 mg tablet 80 mg PO QPM #90 tabs 01/12/24 03/22/24 Rx acetaminophen 500 mg capsule 1,000 mg PO Q6H PRN Pain 01/13/24 03/22/24 History amoxicillin 500 mg capsule 2,000 mg PO UD prior to dental 01/13/24 03/22/24 History procedures escitalopram oxalate 20 mg tablet 20 mg PO HS 01/13/24 03/22/24 History ezetimibe 10 mg tablet (Zetia) 10 mg PO QPM 01/13/24 03/22/24 History gabapentin 600 mg tablet 600 mg PO Q6H #120 tabs 02/02/24 03/22/24 Rx cholecalciferol (vitamin D3) 125 125 mcg PO DAILY 03/04/24 03/22/24 History mcg (5,000 unit) tablet (Vitamin D3) oxycodone 5 mg tablet 5 mg PO Q6H PRN pain #30 tabs 03/05/24 03/22/24 Rx tramadol 50 mg tablet 50 mg PO Q6H PRN pain, moderate 03/05/24 03/22/24 Rx #30 tabs warfarin 5 mg tablet 5 mg PO QPM 03/22/24 03/22/24 History Patient History Medical History Allergies stated he was tested thru ENT and "is allergic to 49 things he was tested for, all environmental." Hx of migraines none for last 20 years History of COVID-19 10/2023, tested at PCP, not hosp; mild symptoms w/cough, loss of taste/smell>resolved Surgical History Hx laparoscopic cholecystectomy History of intestinal surgery ~1975 or 1976, obstruction/bowel "pinched off," removed small segment of bowel along with appendix History of esophagogastroduodenoscopy (EGD) H/O heart artery stent ~1995, pain down backs of arms and chest pain-abn stress test, [place], x1 stent placed LAD S/P inguinal hernia repair left S/P appendectomy taken w/bowel resection S/P cardiac cath ~1995, pain down backs of arms and chest pain-abn stress test, [place], x1 stent placed LAD S/P cataract extraction bilateral S/P colonoscopy 02/17/2013 repeat 10yrs S/P CABG (coronary artery bypass graft) (2001) x 1 ANDRE to RCA + AVR, [facility]; f/u dr. bhatt, [place] [place] Family History Father Hypertension Heart disease CHF (congestive heart failure) Myocardial infarction Mother CHF (congestive heart failure) Aunt CHF (congestive heart failure) Diabetes Uncle CHF (congestive heart failure) Myocardial infarction Uncle CHF (congestive heart failure) Myocardial infarction Denies family history of Ovarian cancer Prostate cancer Breast cancer Colorectal cancer Stroke Social History Smoking Status: Never smoker Tobacco Type: Smokeless Tobacco (Dip or Chew) Age Started Using Tobacco: 21; Age Quit Using Tobacco: 28; packs per day: 2; Second Hand Exposure: Yes (hx); Do You Dip or Chew Tobacco: Yes (1 can/2 days; advised); Hx Alcohol Use: Yes Alcohol type: beer, wine and hard liquor Alcohol Intake Frequency: 2-4 x/Month Hx Substance Use: No Preferred Language: Uzbek Communication Ability: Effective Visual Impairment: Partially Limited Hearing Ability: Hard of Hearing 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 Beliefs That Will Affect Care: None marital status: Current Living Situation: Spouse and Family Current Living Situation Comment: lives with spouse and son current occupational status: retired current occupation: Worked at [employer] How many Children do You have: 2 Feels Safe at Home: Yes Childhood Exposure to Second-Hand Smoke: Yes caffeine: Yes (coffee daily/soda occasionally) Dental Care, Regularly: Yes Physical Activity Frequency: Does not Exercise Seatbelt Use: always Sunscreen Use: No Do you think of yourself as: straight/heterosexual Assistive Devices: Bedside Commode, Cane, Lift Chair, Raised Toilet Seat and Walker Review of Systems Review of Systems: All systems reviewed & are unremarkable except as noted in HPI & below Physical Exam Physical Exam: General: Ill in appearance without acute distress Eyes: conjunctiva are pink and non-injected, sclera clear Neck: normal jugular venous pulse, no hepatojugular reflux Chest: normal shape and normal respiratory effort Lungs: clear to auscultation and percussion Cardiac Exam: -Irregular rhythm, crisp prosthetic heart sounds noted, no murmurs Abdomen: abdomen soft, non-tender, no abnormal masses and no hepatosplenomegaly Musculoskeletal: no gait disturbance, no weakness Extremities: 1+ bilateral lower extremity edema Neuro: Noted normal distal sensation, wiggles toes on command Results & Data Vital Signs (Past 12 Hours) Vital Signs Temp Pulse Pulse Resp BP BP Pulse Ox 03/22/24 17:00 96 H 24 129/67 94 03/22/24 16:30 112 H 24 114/65 93 03/22/24 15:23 102 H 24 113/83 95 03/22/24 13:55 100 H 03/22/24 13:39 95 03/22/24 13:39 37.5 C 87 18 136/79 97 O2 Del Method O2 Flow Rate 03/22/24 17:00 Nasal Cannula 2 03/22/24 16:30 Nasal Cannula 2 03/22/24 15:23 Nasal Cannula 2 03/22/24 13:55 03/22/24 13:39 Room Air 03/22/24 13:39 Room Air Laboratory Results Cardiac Enzymes 03/22/24 Range/Units 15:07 AST 24 (13-39) U/L Coagulation 03/22/24 Range/Units 15:07 PT 21.0 H (9.0-12.0) Seconds CBC 03/22/24 Range/Units 15:07 WBC 8.25 (4.8-10.8) K/ul RBC 2.72 L (4.70-6.10) M/uL Hgb 8.9 L (14.0-18.0) g/dl Hct 27.9 L (42.0-52.0) % Plt Count 186 (130-400) K/uL Neut # (Auto) 6.05 (1.40-6.50) K/uL Lymph # (Auto) 0.79 L (1.20-3.40) K/uL [place] # (Auto) 0.90 H (0.11-0.59) K/uL Eos # (Auto) 0.43 (0.00-0.50) K/uL Baso # (Auto) 0.04 (0.00-0.20) K/uL Comprehensive Metabolic Panel 03/22/24 Range/Units 15:07 Sodium 136 (136-145) mmol/L Potassium 4.3 (3.5-5.1) mmol/L Chloride 104 (98-107) mmol/L Carbon Dioxide 27 (21-32) mmol/L BUN 14 (6-23) mg/dl Creatinine 0.98 (0.6-1.4) mg/dl Glucose 90 (70-99(Fasting)) mg/dl Calcium 8.7 (8.6-10.3) mg/dl AST 24 (13-39) U/L ALT 20 (7-52) U/L Alkaline Phosphatase 102 (34-104) U/L Total Protein 6.5 (6.0-8.3) gm/dl Albumin 3.4 (3.4-5.0) gm/dl Intake and Output 03/22/24 03/22/24 03/22/24 06:59 14:59 22:59 Other: Weight 118 kg Weight Measurement Method Built in [facility] Patient Weight 03/23/24 06:59 Weight 118 kg Diagnostic Findings EKG performed today 03/22/2024 1337 interpreted independently: Atrial fibrillation at 99 bpm with occasional PVCs, and age-indeterminate inferior infarct cannot be excluded, mild nonspecific lateral repolarization abnormalities noted, compared to the previous outpatient EKG performed in the [facility] dated 01/22/2024, the age-indeterminate inferior infarct pattern in the lateral repolarization abnormalities are new.
[2024-03-22 20:01] LABS: INR 1.7 (0.9-1.1); Prothrombin Time 17.6 Seconds (9.0-12.0)
[2024-03-22] MEDS: HYDROmorphone INJ 1 MG/ML SYRINGE IV PRN (21:16)
[2024-03-22] MEDS: TAMSULOSIN HCL 0.4 MG CAP PO SCH (21:17)
[2024-03-22] MEDS: ESCITALOPRAM OXALATE 20 MG TAB PO SCH (21:17)
[2024-03-22] MEDS: CETIRIZINE HCL 10 MG TABLET PO SCH (21:17)
[2024-03-22] MEDS: EZETIMIBE 10 MG TAB PO SCH (21:17)
[2024-03-22] MEDS: ATORVASTATIN 40 MG TAB PO SCH (21:17)
[2024-03-23 05:55] LABS: Basophils # (auto) 0.03 K/uL (0.00-0.20); Basophils % (auto) 0.4 %; Eosinophils % (auto) 3.5 %; Hematocrit (blood only) 27.7 % (42.0-52.0); Hemoglobin 8.7 g/dl (14.0-18.0); Immature Granulocytes # (auto) 0.04 K/uL (0.01-0.20); Immature Granulocytes % (auto) 0.5 %; Lymphocytes # (auto) 0.62 K/uL (1.20-3.40); Lymphocytes % (auto) 7.3 %; Mean Corpuscular Hemoglobin 32.2 pg (25.0-34.0); Mean Corpuscular Hgb Conc 31.4 g/dL (32.0-36.0); Mean Corpuscular Volume 102.6 fL (80.0-100.0); Mean Platelet Volume 8.9 fL (9.4-12.4); Monocytes # (auto) 0.83 K/uL (0.11-0.59); Monocytes % (auto) 9.8 %; Neutrophils # (auto) 6.67 K/uL (1.40-6.50); Neutrophils % (auto) 78.5 %; Platelet Count 165 K/uL (130-400); RDW Standard Deviation 56.2 fL (36.4-46.3); White Blood Count 8.49 K/ul (4.8-10.8)
[2024-03-23 06:04] LABS: Calcium 8.3 mg/dl (8.6-10.3); Creatinine Clr Calc Pharmacy 87.7 ml/min; Est GFR (Non-African American) 82.9 ml/min; Potassium 4.4 mmol/L (3.5-5.1)
[2024-03-23 06:12] LABS: INR 1.4 (0.9-1.1); Prothrombin Time 14.8 Seconds (9.0-12.0)
--- NOTE | 2024-03-23 07:08 | XRay Report ---
XR chest 1V portable HISTORY: 79 years-old Male Pre-op preoperative exam. No acute chest complaints COMPARISON: 01/26/2024 TECHNIQUE: AP view of the chest FINDINGS: Cardiac silhouette is enlarged. Median sternotomy with cardiac valvular prosthesis. No pneumothorax, pleural effusion, airspace consolidation or pulmonary edema. Bones appear grossly intact. IMPRESSION: Cardiomegaly without acute process. ACT 112: Negative or not required by law. The above report was generated using voice recognition software. It may contain grammatical, syntax o r spelling errors. Electronically signed by: Wade Marquis M.D. 03/23/2024 7:06 AM
[2024-03-23] MEDS: CHOLECALCIFEROL 125 MCG (5,000 UNITS) TAB PO SCH (07:44)
[2024-03-23] MEDS: METOPROLOL SUCC 25MG EXT REL TAB PO SCH (07:44)
[2024-03-23] MEDS: CEROVITE ADV FORMULA TAB PO SCH (07:44)
--- NOTE | 2024-03-23 07:46 | History & Physical Report ---
Date of Service March 23, 2024 Assessment & Plan (1) Epidural hematoma: Plan: Assessment lumbar epidural hematoma. Plan at this time he is n.p.o. we will plan for irrigation debridement of lumbar hematoma today. Admission and Anticipated Discharge Date Admission Date: March 22, 2024 History of Present Illness Chief Complaint: Worsening back and bilateral leg pain with weakness Primary Care Provider: Alisson Gonzalez DO This is a 79-year-old male that presents the emergency room in [place] yesterday. He has been diagnosed with a postop lumbar epidural hematoma and INR that is supratherapeutic. Subsequently was transferred to [facility] to undergo evaluation and consideration for I&D. Allergies Allergy/AdvReac Type Severity Reaction Status Date / Time fexofenadine [From Milla] Allergy had chest Verified 03/22/24 15:04 pain azithromycin AdvReac Diarrhea Verified 03/22/24 15:04 Home Medications Medication Instructions Recorded Confirmed Type cetirizine 10 mg tablet 10 mg PO QPM 06/14/19 03/22/24 History vit C 226 mg-vit E 90 mg-copper 1 cap PO BID 06/30/19 03/22/24 History 0.8 mg-zinc oxide-lutein 5 mg capsule (PreserVision Lutein) metoprolol succinate 25 mg 25 mg PO QAM 07/10/23 03/22/24 History tablet,extended release 24 hr fluticasone propionate 50 1 spray intranasal DAILY PRN 07/16/23 03/22/24 History mcg/actuation nasal congestion/allergies spray,suspension (Flonase Allergy Relief) tamsulosin 0.4 mg capsule 0.4 mg PO HS #90 caps 12/09/23 03/22/24 Rx atorvastatin 80 mg tablet 80 mg PO QPM #90 tabs 01/12/24 03/22/24 Rx acetaminophen 500 mg capsule 1,000 mg PO Q6H PRN Pain 01/13/24 03/22/24 History amoxicillin 500 mg capsule 2,000 mg PO UD prior to dental 01/13/24 03/22/24 History procedures escitalopram oxalate 20 mg tablet 20 mg PO HS 01/13/24 03/22/24 History ezetimibe 10 mg tablet (Zetia) 10 mg PO QPM 01/13/24 03/22/24 History gabapentin 600 mg tablet 600 mg PO Q6H #120 tabs 02/02/24 03/22/24 Rx cholecalciferol (vitamin D3) 125 125 mcg PO DAILY 03/04/24 03/22/24 History mcg (5,000 unit) tablet (Vitamin D3) oxycodone 5 mg tablet 5 mg PO Q6H PRN pain #30 tabs 03/05/24 03/22/24 Rx tramadol 50 mg tablet 50 mg PO Q6H PRN pain, moderate 03/05/24 03/22/24 Rx #30 tabs warfarin 5 mg tablet 5 mg PO QPM 03/22/24 03/22/24 History Past Med/Surg History Problem List Anemia Fall Hypoxia (Acute) Epidural hematoma (Acute) Acute blood loss anemia Chronic atrial fibrillation Neurogenic claudication due to lumbar spinal stenosis Head trauma Abrasion of leg, left Lumbar pain Left hip pain MCL sprain of right knee Right knee DJD Scattered rhonchi of right lung w/covid 10/2023 COVID-19 virus infection Macrocytic anemia Microscopic hematuria hx BPH w urinary obs/LUTS Chronic low back pain Deviated septum Onychomycosis of toenail hx History of aortic valve replacement with metallic valve done in conjunction w/ single CABG, C in 2001 TMJ arthralgia "occasional pain," used to click>but none for years; no hx locking Postherpetic neuralgia Acoustic neuroma (Chronic) Allergic rhinitis (Chronic) CAD (coronary artery disease) (Chronic) CABG x 1 with ANDRE to RCA in 2021, h/o stent to LAD in 1994 Depression (Chronic) GERD without esophagitis (Chronic) controlled, stable per pt Hyperlipidemia (Chronic) Essential hypertension (Chronic) controlled, stable per pt Macular degeneration (Chronic) Obesity (Chronic) Paroxysmal atrial fibrillation (Chronic) f/u dr. zelaya, [facility]>"in charge of his atrial fib" Anticoagulant long-term use (Chronic) Medical History Allergies stated he was tested thru ENT and "is allergic to 49 things he was tested for, all environmental." Hx of migraines none for last 20 years History of COVID-19 10/2023, tested at PCP, not hosp; mild symptoms w/cough, loss of taste/s erin>resolved Surgical History Hx laparoscopic cholecystectomy History of intestinal surgery ~1975 or 1976, obstruction/bowel "pinched off," removed small segment of bowel along with appendix History of esophagogastroduodenoscopy (EGD) H/O heart artery stent ~1995, pain down backs of arms and chest pain-abn stress test, [place], x1 stent placed LAD S/P inguinal hernia repair left S/P appendectomy taken w/bowel resection S/P cardiac cath ~1995, pain down backs of arms and chest pain-abn stress test, [place], x1 stent placed LAD S/P cataract extraction bilateral S/P colonoscopy 02/17/2013 repeat 10yrs S/P CABG (coronary artery bypass graft) (2001) x 1 ANDRE to RCA + AVR, [facility] [place]; f/u dr. fya, [facility] Family History Father Hypertension Heart disease CHF (congestive heart failure) Myocardial infarction Mother CHF (congestive heart failure) Aunt CHF (congestive heart failure) Diabetes Uncle CHF (congestive heart failure) Myocardial infarction Uncle CHF (congestive heart failure) Myocardial infarction Denies family history of Ovarian cancer Prostate cancer Breast cancer Colorectal cancer Stroke Social History Smoking Status: Never smoker Tobacco Type: Smokeless Tobacco (Dip or Chew) Age Started Using Tobacco: 21; Age Quit Using Tobacco: 28; packs per day: 2; Second Hand Exposure: Yes (hx); Do You Dip or Chew Tobacco: Yes; Hx Alcohol Use: Yes Alcohol type: beer, wine and hard liquor Alcohol Intake Frequency: 2-4 x/Month Hx Substance Use: No Preferred Language: Vietnamese Communication Ability: Effective Communication Ability Comment: Drowsy during admission Visual Impairment: Partially Limited Hearing Ability: Hard of Hearing Sewing Inspector Required: No Beliefs That Will Affect Care: None marital status: Current Living Situation: Spouse Current Living Situation Comment: lives with spouse and son current occupational status: retired current occupation: Worked at [employer] How many Children do You have: 2 Feels Safe at Home: Yes Childhood Exposure to Second-Hand Smoke: Yes caffeine: Yes (coffee daily/soda occasionally) Dental Care, Regularly: Yes Physical Activity Frequency: Does not Exercise Seatbelt Use: always Sunscreen Use: No Do you think of yourself as: straight/heterosexual Assistive Devices: Glasses and Walker Physical Exam Physical Exam: Patient is currently in bed. He does demonstrate a motor or sensory deficit lo wer extremity. Down we will to ambulate without assistance. Results & Data Results & Data Vital Signs (Past 12 Hours) Vital Signs Temp Pulse Resp BP Pulse Ox O2 Del Method O2 Flow Rate 03/23/24 07:44 36.7 C 102 H 18 100/68 92 Nasal Cannula 2 03/22/24 20:13 36.6 C 103 H 16 112/72 96 Nasal Cannula 2 03/22/24 20:10 Nasal Cannula 2 Code Status & VTE Plan VTE Prophylaxis Plan VTE Prophylaxis will be ordered: Yes
--- NOTE | 2024-03-23 09:06 | Cardiology Progress Note ---
Date of Service March 23, 2024 Assessment & Plan (1) Epidural hematoma: (2) Acute blood loss anemia: (3) Chronic atrial fibrillation: (4) History of aortic valve replacement with metallic valve: Plan: As noted, patient has a mechanical aortic valve prosthesis that is 23 years old as well as permanent atrial fibrillation and is at significant risk for thrombotic cardiac event, however given spinal hematoma, anticoagulation needs to be reversed/ held. INR down to 1.4 this am, 03/23/24, coumadin on hold, received vitamin K 5 mg IV x dose at [facility] on 03/22/24 Tentative plan is for spinal surgery this afternoon. Although EKG has new subtle repolarization abnormalities, this is probably because of myocardial strain in the setting of anemia and his noncardiac acute illness, would not delay spine surgery for further cardiac testing. Admission and Anticipated Discharge Date Admission Date: March 22, 2024 Subjective Patient seen in cardiology follow up. Denies chest pain or palpitations. Low back pain present, but controlled. Notes subjective leg weakness. Physical Exam Physical Exam: General: Ill in appearance without acute distress Eyes: conjunctiva are pink and non-injected, sclera clear Neck: normal jugular venous pulse, no hepatojugular reflux Chest: normal shape and normal respiratory effort Lungs: clear to auscultation and percussion Cardiac Exam: -Irregular rhythm, tachycardic, crisp prosthetic heart sounds noted, no murmurs Abdomen: abdomen soft, non-tender, no abnormal masses and no hepatosplenomegaly Musculoskeletal: no gait disturbance, no weakness Extremities: 1+ bilateral lower extremity edema, Knee high SCDs in place Neuro: Noted normal distal sensation, wiggles toes on right foot, but not the left :Sher catheter in place draining clear yellow urine Results & Data Vital Signs (Past 12 Hours) Vital Signs Temp Pulse Resp BP Pulse Ox O2 Del Method O2 Flow Rate 03/23/24 07:44 36.7 C 102 H 18 100/68 92 Nasal Cannula 2 Laboratory Results Cardiac Enzymes 03/22/24 Range/Units 15:07 AST 24 (13-39) U/L Coagulation 03/22/24 03/22/24 03/23/24 Range/Units 15:07 19:17 05:31 PT 21.0 H 17.6 H 14.8 H (9.0-12.0) Seconds CBC 03/22/24 03/23/24 Range/Units 15:07 05:31 WBC 8.25 8.49 (4.8-10.8) K/ul RBC 2.72 L 2.70 L (4.70-6.10) M/uL Hgb 8.9 L 8.7 L (14.0-18.0) g/dl Hct 27.9 L 27.7 L (42.0-52.0) % Plt Count 186 165 (130-400) K/uL Neut # (Auto) 6.05 6.67 H (1.40-6.50) K/uL Lymph # (Auto) 0.79 L 0.62 L (1.20-3.40) K/uL [place] # (Auto) 0.90 H 0.83 H (0.11-0.59) K/uL Eos # (Auto) 0.43 0.30 (0.00-0.50) K/uL Baso # (Auto) 0.04 0.03 (0.00-0.20) K/uL Comprehensive Metabolic Panel 03/22/24 03/23/24 Range/Units 15:07 05:31 Sodium 136 136 (136-145) mmol/L Potassium 4.3 4.4 (3.5-5.1) mmol/L Chloride 104 103 (98-107) mmol/L Carbon Dioxide 27 29 (21-32) mmol/L BUN 14 15 (6-23) mg/dl Creatinine 0.98 0.88 (0.6-1.4) mg/dl Glucose 90 91 (70-99(Fasting)) mg/dl Calcium 8.7 8.3 L (8.6-10.3) mg/dl AST 24 (13-39) U/L ALT 20 (7-52) U/L Alkaline Phosphatase 102 (34-104) U/L Total Protein 6.5 (6.0-8.3) gm/dl Albumin 3.4 (3.4-5.0) gm/dl Intake and Output 03/22/24 03/23/24 03/23/24 22:59 06:59 14:59 Intake Total 878.75 / 878.75 Output Total 1000 / 1400 400 / 1400 Balance -1000 / -521.25 478.75 / -521.25 Intake: IV 878.75 / 878.75 Lactated Ringer's 1,000 ml @ 75 878.75 / 878.75 mls/hr IV .[id number] [facility] Rx#: [id number] Oral 0 / 0 Output: Urine Amount (Catheter) 1000 / 1400 400 / 1400 External 0 / 0 Sher/Indwelling 1000 / 1400 400 / 1400 Other: Other Intake Source NPO Weight 118 kg Weight Measurement Method Built in [facility]
--- NOTE | 2024-03-23 13:43 | Anesthesiology Consultation ---
Date of Service March 23, 2024 Assessment & Plan Chart Review Chart Review: Acceptable Risk for Surgery and Patient NOT seen in Pre Admission Testing Consults Requested none History Surgery Operation Date: 03/23/24 13:45 Proposed Procedures p Incision and Drainage Lumbar Spine - Óscar Lester DO Height/Weight Height: 5 ft 8 in Weight: 118 kg Allergies Allergy/AdvReac Type Severity Reaction Status Date / Time fexofenadine [From Milla] Allergy had chest Verified 03/22/24 15:04 pain azithromycin AdvReac Diarrhea Verified 03/22/24 15:04 Medications Home Medications Medication Instructions Recorded Confirmed Last Taken cetirizine 10 mg tablet 10 mg PO QPM 06/14/19 03/22/24 03/21/24 vit C 226 mg-vit E 90 mg-copper 1 cap PO BID 06/30/19 03/22/24 03/22/24 0.8 mg-zinc oxide-lutein 5 mg capsule (PreserVision Lutein) metoprolol succinate 25 mg 25 mg PO QAM 07/10/23 03/22/24 03/21/24 tablet,extended release 24 hr fluticasone propionate 50 1 spray intranasal DAILY PRN 07/16/23 03/22/24 03/04/24 04:45 mcg/actuation nasal congestion/allergies spray,suspension (Flonase Allergy Relief) tamsulosin 0.4 mg capsule 0.4 mg PO HS #90 caps 12/09/23 03/22/24 03/21/24 atorvastatin 80 mg tablet 80 mg PO QPM #90 tabs 01/12/24 03/22/24 03/21/24 acetaminophen 500 mg capsule 1,000 mg PO Q6H PRN Pain 01/13/24 03/22/24 03/01/24 amoxicillin 500 mg capsule 2,000 mg PO UD prior to dental 01/13/24 03/22/24 03/01/24 procedures escitalopram oxalate 20 mg tablet 20 mg PO HS 01/13/24 03/22/24 03/21/24 ezetimibe 10 mg tablet (Zetia) 10 mg PO QPM 01/13/24 03/22/24 03/21/24 gabapentin 600 mg tablet 600 mg PO Q6H #120 tabs 02/02/24 03/22/24 03/22/24 cholecalciferol (vitamin D3) 125 125 mcg PO DAILY 03/04/24 03/22/24 03/22/24 mcg (5,000 unit) tablet (Vitamin D3) oxycodone 5 mg tablet 5 mg PO Q6H PRN pain #30 tabs 03/05/24 03/22/24 Unknown tramadol 50 mg tablet 50 mg PO Q6H PRN pain, moderate 03/05/24 03/22/24 Unknown #30 tabs warfarin 5 mg tablet 5 mg PO QPM 03/22/24 03/22/24 03/21/24 Active Medications Generic Name Dose Route Start Last Admin Trade Name Freq PRN Reason Stop Dose Admin Atorvastatin Calcium 80 mg 03/22/24 21:00 03/22/24 21:17 Atorvastatin 40 Mg Tab PO 04/21/24 20:59 80 mg QPM JORGE ALBERTO Administration Cetirizine HCl 10 mg 03/22/24 21:00 03/22/24 21:17 Cetirizine Hcl 10 Mg Tablet PO 04/21/24 20:59 10 mg QPM JORGE ALBERTO Administration Ezetimibe 10 mg 03/22/24 21:00 03/22/24 21:17 Ezetimibe 10 Mg Tab PO 04/21/24 20:59 10 mg QPM JORGE ALBERTO Administration Escitalopram Oxalate 20 mg 03/22/24 21:00 03/22/24 21:17 Escitalopram Oxalate 20 Mg Tab PO 04/21/24 20:59 20 mg HS JORGE ALBERTO Administration Gabapentin 600 mg 03/23/24 00:00 03/23/24 12:09 Gabapentin 600 Mg Tab PO 04/21/24 17:37 Not Given Q6 JORGE ALBERTO Hydromorphone HCl 1 mg 03/22/24 17:38 03/23/24 12:08 Hydromorphone Inj 1 Mg/Ml Syringe IV 04/05/24 17:37 1 mg Q3H PRN Administration severe pain (scale 7-10) Lactated Ringer's 1,000 mls @ 75 mls/hr 03/22/24 17:38 03/23/24 05:33 Lr IV 04/21/24 17:37 75 mls/hr .[id number] JORGE ALBERTO Administration Metoprolol Succinate 25 mg 03/23/24 09:00 03/23/24 07:44 Metoprolol Succ 25mg Ext Rel Tab PO 04/22/24 08:59 Not Given QAM JORGE ALBERTO Multivitamins/Minerals 1 tab 03/23/24 09:00 03/23/24 07:44 Cerovite Adv Formula Tab PO 04/22/24 08:59 Not Given DAILY JORGE ALBERTO Tamsulosin HCl 0.4 mg 03/22/24 21:00 03/22/24 21:17 Tamsulosin Hcl 0.4 Mg Cap PO 04/21/24 20:59 0.4 mg HS JORGE ALBERTO Administration Vitamin D 125 mcg 03/23/24 09:00 03/23/24 07:44 Cholecalciferol 125 Mcg (5,000 Units) Tab PO 04/22/24 08:59 Not Given DAILY JORGE ALBERTO NPO Date Last Intake of Fluids: 03/23/24 Time Last Intake of Fluids: 05:33 Last Intake of Fluids Comment: sip of water Date Last Intake of Solids: 03/22/24 Past Medical History Medical History Allergies stated he was tested thru ENT and "is allergic to 49 things he was tested for, all environmental." Hx of migraines none for last 20 years History of COVID-19 10/2023, tested at PCP, not hosp; mild symptoms w/cough, loss of taste/smell>resolved Past Family History Family History Father Hypertension Heart disease CHF (congestive heart failure) Myocardial infarction Mother CHF (congestive heart failure) Aunt CHF (congestive heart failure) Diabetes Uncle CHF (congestive heart failure) Myocardial infarction Uncle CHF (congestive heart failure) Myocardial infarction Denies family history of Ovarian cancer Prostate cancer Breast cancer Colorectal cancer Stroke Past Surgical History Surgical History Hx laparoscopic cholecystectomy History of intestinal surgery ~1975 or 1976, obstruction/bowel "pinched off," removed small segment of bowel along with appendix History of esophagogastroduodenoscopy (EGD) H/O heart artery stent ~1995, pain down backs of arms and chest pain-abn stress test, [place], x1 stent placed LAD S/P inguinal hernia repair left S/P appendectomy taken w/bowel resection S/P cardiac cath ~1995, pain down backs of arms and chest pain-abn stress test, [place], x1 stent placed LAD S/P cataract extraction bilateral S/P colonoscopy 02/17/2013 repeat 10yrs S/P CABG (coronary artery bypass graft) (2001) x 1 ANDRE to RCA + AVR, [facility] [place]; f/[facility] Social History Smoking Status: Never smoker Do You Dip or Chew Tobacco: Yes Hx Alcohol Use: Yes Alcohol type: beer, wine and hard liquor alcohol intake frequency: a few times a week Hx Substance Use: No substance use type: does not use Physical Exam Vital Signs Last Vital Signs Temp 36.7 C 03/23/24 07:44 Pulse 102 H 03/23/24 07:44 Resp 18 03/23/24 07:44 BP 100/68 03/23/24 07:44 Pulse Ox 92 03/23/24 07:44 O2 Del Method Room Air 03/23/24 07:50 O2 Flow Rate 2 03/23/24 07:50 Testing Laboratory Results 03/23/24 05:31 03/23/24 05:31 PT 14.8 Seconds (9.0-12.0) H 03/23/24 05:31 INR 1.4 (0.9-1.1) H 03/23/24 05:31 Blood Type A Positive 03/23/24 05:31 Antibody Screen NEGATIVE 03/23/24 05:31
[2024-03-23] MEDS ORDERED: ePHEDrine sulfate 50 MG/ML AMP IV PRN (13:54)
[2024-03-23] MEDS ORDERED: fentaNYL citrate PF 100 MCG/2 ML VIAL IV PRN (13:54)
[2024-03-23] MEDS ORDERED: ATROPINE SULFATE 0.1 MG/ML 10ML SYR IV PRN (13:54)
[2024-03-23] MEDS ORDERED: fentaNYL citrate PF 100 MCG/2 ML VIAL ONE (14:26)
[2024-03-23] MEDS ORDERED: PROPOFOL IV EMULSION 10 MG/ML 20 ML VIAL IV ONE (14:26)
[2024-03-23] MEDS ORDERED: ONDANSETRON INJ 2 MG/ML 2 ML VIAL ONE (14:26)
[2024-03-23] MEDS ORDERED: LIDOCAINE 2% 2 ML VIAL/AMP(20MG/ML) INFIL ONE (14:26)
[2024-03-23] MEDS ORDERED: GLYCOPYRROLATE 0.2 MG/ML VIAL ONE (14:26)
[2024-03-23] MEDS ORDERED: DEXAMETHASONE SOD INJ 4 MG/ML VIAL ONE (14:26)
[2024-03-23] MEDS ORDERED: NEOSTIGMINE METHYLSULFATE 1 MG/ML 10ML VIAL ONE (14:26)
[2024-03-23] MEDS ORDERED: MIDAZOLAM HCL 1 MG/ML 2ML VIAL ONE (14:26)
[2024-03-23] MEDS ORDERED: ROCURONIUM BROMIDE 10 MG/ML 5 ML VIAL IV ONE (14:26)
--- NOTE | 2024-03-23 14:52 | History & Physical Bridge Note ---
Date of Service March 23, 2024 History & Physical Bridge Note I have examined the patient, reviewed the History & Physical and in the interval since the performance of the History & Physical I have noted the following changes of clinical significance: no changes noted Irrigation debridement lumbar spine
[2024-03-23] MEDS: ceFAZolin 3000MG 3,000 MG/72.5 ML BAG IV SCH (15:19)
[2024-03-23] MEDS ORDERED: SUGAMMADEX SODIUM 200 MG/2 ML VIAL IV ONE (15:48)
[2024-03-23] MEDS: BUPIVACAINE/EPINEPHRINE 0.25% 1:200,000 30 ML VIAL ONE (16:00)
--- NOTE | 2024-03-23 16:00 | Hospitalist Progress Note ---
Date of Service March 23, 2024 Assessment & Plan (1) Fall: Plan: Recent L2-L5 spine surgery with Dr. Lester on 03/04 Patient fell onto left hip on 03/17, then developed severe lower back pain and worsening lower extremity numbness on 03/19 then 1 episode of urinary retention followed by urinary incontinence on 03/22 Patient had an MRI at [place] which showed large 8.5cm epidermal hematoma with impingement of the thecal sac Plan is to go to the OR with Dr. Lester on 03/23 for I&D -Perioperative antibiotics, activity, pain control, fluids, and DVT PPx per the primary team Neurovascular checks q4h Wean O2 as able post-operatively, baseline is room air. AM CBC and BMP post operatively (2) Epidural hematoma: Plan: Plan (as above) (3) Paroxysmal atrial fibrillation: Plan: INR elevated at 2.1, Patient reportedly received vitamin K 5mg in [place] Recheck INR 1.4, acceptable for surgery today Will restart based on Dr. Lester recommendations (4) History of aortic valve replacement with metallic valve: Plan: In 2001 Follows with [facility]iology Cardiology consulted for preop clearance - no cardiac contraindication for proceeding with surgery (5) Anemia: Plan: In the setting of acute blood loss anemia secondary to surgery on 03/04 Hgb 8.9 on arrival and stable No signs of active bleeding on clinical exam (6) Essential hypertension: Plan: Continue metoprolol (7) Hyperlipidemia: Plan: Continue atorvastatin, ezetimibe Plan Dispo: continued inpatient stay, OR today VTE PPx: SCDs/teds Thank you for allowing us to participate in the care of this patient, please reach out with any questions or concerns; we will continue to follow. Admission and Anticipated Discharge Date Admission Date: March 22, 2024 Supervising Physician Co-Signing Physician Notes Attending Attestation: Chart reviewed, care plan d/w RAUL Miles. I agree w/ the lebron components of her documentation. Dutch Monson MD Subjective Patient seen prior to going to the OR. At that time no acute complaints, pain well controlled at rest. on 2L O2, does not normally need oxygen at home. Review of Systems Review of Systems: All systems reviewed & are unremarkable except as noted in Subjective Physical Exam Physical Exam: General: NAD, VS as above Resp: normal respiratory effort, lungs clear to auscultation (anteriorly) CV: RRR, no murmur, Abd: soft, non tender, Extremities: Moves all extremities, : enriquez catheter in place draining dark yellow urine Results & Data Results & Data Vital Signs (Past 12 Hours) Vital Signs Temp Pulse Resp BP Pulse Ox O2 Del Method O2 Flow Rate 03/23/24 13:43 36.6 C 100 H 20 113/61 97 Nasal Cannula 2 03/23/24 07:50 Room Air 2 03/23/24 07:44 36.7 C 102 H 18 100/68 92 Nasal Cannula 2 Laboratory Results CBC and chemistry reviewed PG Care Time/CCT Total # of Minutes Spent Total Time Spent with Patient: Total time spent is greater than 50% in coordination of care (as documented) at patient's floor/unit and/or counseling patient: Coding Level of Care Code 72023 SUB INP/OBS CARE 2/35MIN Diagnoses Fall W19.XXXA Epidural hematoma S06.4XAA Paroxysmal atrial fibrillation I48.0 History of aortic valve replacement with metallic valve Z95.4 Anemia D64.9 Essential hypertension I10 Hyperlipidemia E78.5
[2024-03-23] MEDS: GENTAMICIN SULFATE 40 MG/ML 2 ML VIAL ONE (16:01)
[2024-03-23] MEDS: ceFAZolin 330 MG/ML 1 GM VIAL ONE (16:01)
[2024-03-23] MEDS: VANCOMYCIN HCL 1000MG/20ML VIAL ONE (16:01)
--- NOTE | 2024-03-23 16:04 | Operative Report ---
Post Operative Report Pre & Post Diagnosis Operation Date: 03/23/24 13:45 Pre-Op diagnosis postop lumbar hematoma Postop diagnosis same I identified the patient and participated in the time-out.: Yes Procedure Operation Date: 03/23/24 13:45 #1 irrigation debridement lumbar spine Surgeon Óscar Lester DO [employer] Michelle Morrison Estimated Blood Loss 25 Findings Consistent with Post-Op Diagnosis Specimens Epidural hematoma Indications This is a 79-year-old male status post lumbar decompression fusion that presents with supratherapeutic INR and epidural hematoma causing neurologic compromise. Subsequently here for surgical intervention. Description of Procedure Patient was met with identified informed consent obtained. Patient was then taken to the operative suite underwent ablation placed in a prone position on the Reynold table on top of the Davon frame. Bony prominences well-padded eyes inspected to ensure no external pressure placed upon them. This point lumbar spine was prepped and draped in normal sterile fashion. Utilizing the previous incision site sharp dissection with the assistance of Bovie cautery form down to and exposing the fascial layer. The fascia was then released and a massive hematoma was identified. It appeared to be acute in nature without a serous component. The clots were removed in their entirety. Several liters of saline were then irrigated throughout the incision. Then placed approximately 10 cc of Stimulan beads impregnated with gentamicin and vancomycin throughout the incision. 2 LUIS drains 15 Tamazight in diameter were then placed. The incision was then closed with 1 Vicryl to fascia 2-0 Vicryl subcutaneously and 4 Monocryl for final closure. Steri-Strips sterile dressings placed. Patient awakened taken to PACU in stable condition. Please note Michelle Morrison was present at the entire procedure and all the patient positioning complex course of the surgery and f inal skin closure. I attest to the content of the Intraoperative Record and any orders documented therein. Any exceptions are noted below.
[2024-03-23] MEDS: METOPROLOL TARTRATE 1 MG/ML VIAL IV STA (16:57)
--- NOTE | 2024-03-23 17:03 | Anesthesiology Progress Note ---
Date of Service March 23, 2024 Anesthesia Post Procedure Vital Signs Vital Signs: Temp Pulse Pulse Resp BP Pulse Ox O2 Del Method 03/23/24 16:50 114 H 13 113/68 97 Oxymask 03/23/24 16:40 139 H 10 L 127/73 94 Oxymask 03/23/24 16:30 101 H 13 125/65 96 Oxymask 03/23/24 16:20 97.0 F L 107 H 12 134/83 96 Oxymask 03/23/24 13:43 97.9 F 100 H 20 113/61 97 Nasal Cannula 03/23/24 07:50 Room Air 03/23/24 07:44 98.1 F 102 H 18 100/68 92 Nasal Cannula 03/22/24 20:13 97.9 F 103 H 16 112/72 96 Nasal Cannula 03/22/24 20:10 Nasal Cannula 03/22/24 17:45 Nasal Cannula 03/22/24 17:45 97.7 F 114 H 18 113/79 95 Nasal Cannula O2 Flow Rate 03/23/24 16:50 5 03/23/24 16:40 5 03/23/24 16:30 10 03/23/24 16:20 15 03/23/24 13:43 2 03/23/24 07:50 2 03/23/24 07:44 2 03/22/24 20:13 2 03/22/24 20:10 2 03/22/24 17:45 2 03/22/24 17:45 2 Pain Intensity Back: Pain Intensity: 0 Transfer of Care Handoff Completed per policy Notes Mental Status: alert / awake / arousable and participated in evaluation Patient Amnestic to Procedure: Yes Nausea / Vomiting: adequately controlled Pain: adequately controlled Airway Patency, RR, SpO2: stable & adequate BP & HR: stable & adequate and see Notes below Hydration State: stable & adequate Anesthetic Complications: no major complications apparent and Pt Satisfied with anesthetic care Notes: Patient Afib, 2.5 mg metoprolol given IV for slightly elevated HR, BP remains stable
[2024-03-23] MEDS: METOPROLOL TARTRATE 1 MG/ML VIAL IV ONE (17:32)
--- NOTE | 2024-03-24 06:14 | Electrocardiogram Report ---
Test Reason : Blood Pressure : / mmHG Vent. Rate : 099 BPM Atrial Rate : 000 BPM P-R Int : 000 ms QRS Dur : 096 ms QT Int : 374 ms P-R-T Axes : 000 038 -80 degrees QTc Int : 479 ms Atrial fibrillation with premature ventricular or aberrantly conducted complexes Cannot rule out Inferior infarct , age undetermined Nonspecific ST and T wave abnormality Abnormal ECG No previous ECGs available Confirmed by Lavon Parks ([id number]) on 03/24/2024 6:14:04 AM Referred By: REFERRED SELF Confirmed By:Lavon Parks
[2024-03-24 07:09] LABS: Hematocrit (blood only) 25.2 % (42.0-52.0); Hemoglobin 8.1 g/dl (14.0-18.0); Immature Granulocytes # (auto) 0.02 K/uL (0.01-0.20); Immature Granulocytes % (auto) 0.3 %; Lymphocytes # (auto) 0.36 K/uL (1.20-3.40); Mean Corpuscular Hemoglobin 32.4 pg (25.0-34.0); Mean Corpuscular Hgb Conc 32.1 g/dL (32.0-36.0); Mean Corpuscular Volume 100.8 fL (80.0-100.0); Mean Platelet Volume 9.5 fL (9.4-12.4); Monocytes # (auto) 0.24 K/uL (0.11-0.59); Neutrophils % (auto) 89.7 %; Platelet Count 167 K/uL (130-400); RDW Coefficient of Variation 14.5 % (11.5-14.5); RDW Standard Deviation 53.3 fL (36.4-46.3); White Blood Count 6.02 K/ul (4.8-10.8)
[2024-03-24 07:28] LABS: BUN Creatinine Ratio 21.6 (10-20); Calcium 8.4 mg/dl (8.6-10.3); Creatinine Clr Calc Pharmacy 75.7 ml/min; Est GFR (African American) 81.8 ml/min; Est GFR (Non-African American) 70.6 ml/min; Potassium 4.8 mmol/L (3.5-5.1)
[2024-03-24 07:32] LABS: INR 1.4 (0.9-1.1); Prothrombin Time 14.6 Seconds (9.0-12.0)
--- NOTE | 2024-03-24 09:25 | Orthopedic Progress Note ---
Date of Service March 24, 2024 Assessment & Plan (1) Epidural hematoma: Plan: Today we will initiate physical therapy. Will plan for rehab placement once stable. He does demonstrate significant neurologic decline and overall deconditioning. He would be unsafe to return home. Admission and Anticipated Discharge Date Admission Date: March 22, 2024 Subjective Patient's back and leg symptoms are improved today. Still noting significant weakness particularly on the left lower extremity. Physical Exam Physical Exam: On exam he is in bed. He does continue to demonstrate deficits to the left dorsiflexion plantarflexion at a 3/5. His hip flexors are improving. The right lower extremity is demonstrating 4+/5 bilaterally. Results & Data Vital Signs (Past 12 Hours) Vital Signs Temp Pulse Pulse Resp BP Pulse Ox O2 Del Method 03/24/24 07:45 Nasal Cannula 03/24/24 07:18 36.6 C 67 16 110/68 96 Nasal Cannula 03/24/24 03:29 36.6 C 97 H 18 122/73 96 Nasal Cannula 03/23/24 23:00 36.8 C 98 H 18 132/80 96 Room Air O2 Flow Rate 03/24/24 07:45 2 03/24/24 07:18 2 03/24/24 03:29 03/23/24 23:00 Queries Orthopedic Spine Obesity: Yes
--- NOTE | 2024-03-24 10:49 | Cardiology Progress Note ---
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 Pt is now post op having had irrigation and debridement of a large epidural hematoma on 03/23/24 Patient had claudine on his home coumadin , several INR levels just over 3, goal for him is 2.5-3.5, also had a mechanical fall tripping over his cat that may have precipitated the hematoma. Pt hemodynamically stable. No cardiac complaints. Two spinal drains in place. Case discussed by phone with Dr Lester. We are in agreement to resume home dose of coumadin 5 mg daily today. Repeat INR tomorrow. Admission and Anticipated Discharge Date Admission Date: March 22, 2024 Subjective Patient seen in follow up. Bedside physical therapy underway on my arrival. Patient sitting up in bed, and standing with assistance. Back pain improved since surgery. Still having weakness of his left leg. Two spinal drains in place. Physical Exam Physical Exam: General: Ill in appearance without acute distress, improved compared to 03/23/14 Eyes: conjunctiva are pink and non-injected, sclera clear Neck: normal jugular venous pulse, no hepatojugular reflux Chest: normal shape and normal respiratory effort Lungs: clear to auscultation and percussion Cardiac Exam: -Irregular rhythm, tachycardic, crisp prosthetic heart sounds noted, no murmurs Abdomen: abdomen soft, non-tender, no abnormal masses and no hepatosplenomegaly Musculoskeletal: no gait disturbance, no weakness Extremities: 1+ bilateral lower extremity edema, Knee high SCDs in place Neuro: Noted normal distal sensation, wiggles toes on right foot, but not the le ft, left leg weakness noted Results & Data Vital Signs (Past 12 Hours) Vital Signs Temp Pulse Pulse Resp BP Pulse Ox O2 Del Method 03/24/24 09:37 91 Room Air 03/24/24 07:45 Nasal Cannula 03/24/24 07:18 36.6 C 67 16 110/68 96 Nasal Cannula 03/24/24 03:29 36.6 C 97 H 18 122/73 96 Nasal Cannula 03/23/24 23:00 36.8 C 98 H 18 132/80 96 Room Air O2 Flow Rate 03/24/24 09:37 03/24/24 07:45 2 03/24/24 07:18 2 03/24/24 03:29 03/23/24 23:00 Laboratory Results INR 1.4
--- NOTE | 2024-03-24 11:05 | Hospitalist Progress Note ---
Date of Service March 24, 2024 Assessment & Plan (1) Fall: Plan: Recent L2-L5 spine surgery with Dr. Lester on 03/04 Patient fell onto left hip on 03/17, then developed severe lower back pain and worsening lower extremity numbness on 03/19 then 1 episode of urinary retention followed by urinary incontinence on 03/22 Patient had an MRI at [place] which showed large 8.5cm epidermal hematoma with impingement of the thecal sac Plan is to go to the OR with Dr. Lester on 03/23 for I&D -Perioperative antibiotics, activity, pain control, and DVT PPx per the primary team Neurovascular checks q4h Now on Room air (2) Epidural hematoma: Plan: Plan (as above) (3) History of aortic valve replacement with metallic valve: Plan: In 2001 INR elevated on admission at 2.1, Patient reportedly received vitamin K 5mg in [place] Recheck INR 1.4 Cardiology following - Coumadin restarted today 03/24 (4) Anemia: Plan: In the setting of acute blood loss anemia secondary to surgery on 03/04 Hgb 8.9 on arrival and stable No signs of active bleeding on clinical exam patient states he has never had a workup for anemia before AM CBC, iron studies, B12 and folate (5) Essential hypertension: Plan: Continue metoprolol (6) Hyperlipidemia: Plan: Continue atorvastatin, ezetimibe Plan Dispo: continued inpatient stay, following AM labs VTE PPx: SCDs/teds Thank you for allowing us to participate in the care of this patient, please reach out with any questions or concerns; we will continue to follow. Admission and Anticipated Discharge Date Admission Date: March 22, 2024 Supervising Physician Co-Signing Physician Notes Attending Attestation: Chart reviewed, care plan d/w RAUL Miles. I agree w/ the lebron components of her documentation. Appreciate cardiology assistance. Dutch Monson MD Subjective Patient seen lying in bed, still havng numbness in left leg. able to move it today but still cannot wiggle toes. pain is controlled at rest. was able to stand but not walk with therapy. Is passing gas Review of Systems Review of Systems: All systems reviewed & are unremarkable except as noted in Subjective Physical Exam Physical Exam: General: NAD, VS as above Resp: normal respiratory effort, lungs clear to auscultation (anteriorly) CV: irregular, heart valve sound noted, no murmur, Abd: soft, non tender, Extremities: Moves all extremities, unable to wiggle toes on left food Results & Data Results & Data Vital Signs (Past 12 Hours) Vital Signs Temp Pulse Pulse Resp BP Pulse Ox O2 Del Method 03/24/24 09:37 91 Room Air 03/24/24 07:45 Nasal Cannula 03/24/24 07:18 36.6 C 67 16 110/68 96 Nasal Cannula 03/24/24 03:29 36.6 C 97 H 18 122/73 96 Nasal Cannula O2 Flow Rate 03/24/24 09:37 03/24/24 07:45 2 03/24/24 07:18 2 03/24/24 03:29 Laboratory Results CBC, chemistry and coagulation studies reviewed PG Care Time/CCT Total # of Minutes Spent Total Time Spent with Patient: Total time spent is greater than 50% in coordination of care (as documented) at patient's floor/unit and/or counseling patient: Coding Level of Care Code 95498 SUB INP/OBS CARE 2/35MIN Diagnoses Fall W19.XXXA Epidural hematoma S06.4XAA History of aortic valve replacement with metallic valve Z95.4 Anemia D64.9 Essential hypertension I10 Hyperlipidemia E78.5
[2024-03-24] MEDS ORDERED: bisacodyL 10 MG SUPP PR PRN (11:35)
[2024-03-24] MEDS: DOCUSATE SODIUM 100 MG CAP PO SCH (11:55)
[2024-03-24] MEDS: POLYETHYLENE (MIRALAX) 17 GM PACK PO SCH (11:55)
[2024-03-24] MEDS: WARFARIN SOD 5 MG TAB PO SCH (16:10)
[2024-03-25] MEDS: oxyCODONE HCL IR 5 MG TAB (IMMEDIATE RELEASE) PO PRN (00:23)
[2024-03-25 06:16] LABS: Basophils # (auto) 0.01 K/uL (0.00-0.20); Basophils % (auto) 0.1 %; Eosinophils # (auto) 0.01 K/uL (0.00-0.50); Eosinophils % (auto) 0.1 %; Hematocrit (blood only) 24.5 % (42.0-52.0); Hemoglobin 7.8 g/dl (14.0-18.0); Immature Granulocytes # (auto) 0.04 K/uL (0.01-0.20); Immature Granulocytes % (auto) 0.5 %; Lymphocytes # (auto) 0.64 K/uL (1.20-3.40); Lymphocytes % (auto) 7.3 %; Mean Corpuscular Hemoglobin 31.8 pg (25.0-34.0); Mean Corpuscular Hgb Conc 31.8 g/dL (32.0-36.0); Mean Platelet Volume 9.5 fL (9.4-12.4); Monocytes # (auto) 0.53 K/uL (0.11-0.59); Neutrophils # (auto) 7.59 K/uL (1.40-6.50); Platelet Count 185 K/uL (130-400); RDW Coefficient of Variation 14.6 % (11.5-14.5); RDW Standard Deviation 53.6 fL (36.4-46.3); Red Blood Count 2.45 M/uL (4.70-6.10); White Blood Count 8.82 K/ul (4.8-10.8)
[2024-03-25 06:20] LABS: BUN Creatinine Ratio 21.7 (10-20); Calcium 8.6 mg/dl (8.6-10.3); Est GFR (African American) 98.4 ml/min; Est GFR (Non-African American) 84.9 ml/min; Potassium 4.7 mmol/L (3.5-5.1)
[2024-03-25 06:33] LABS: INR 1.4 (0.9-1.1); Prothrombin Time 14.6 Seconds (9.0-12.0)
[2024-03-25 06:41] LABS: Ferritin 293.8 ng/ml (8-388); Polychromasia 1+; Tear Drop Cells 1+
[2024-03-25 06:47] LABS: Folate (Folic Acid),Ser orPlas 13.86 ng/ml (>5.38)
--- NOTE | 2024-03-25 08:19 | Orthopedic Progress Note ---
Date of Service March 25, 2024 Assessment & Plan (1) Neurogenic claudication due to lumbar spinal stenosis: Plan: At this time we will continue physical therapy and plan for rehab placement. He is thinking Friday was best. Admission and Anticipated Discharge Date Admission Date: March 22, 2024 Subjective Patient's back pain is controlled he feels his leg symptoms are improving. He did tolerate therapy yesterday. Physical Exam Physical Exam: On exam he is comfortable. He is demonstrating increased improvement to strength the left lower extremity. Results & Data Vital Signs (Past 12 Hours) Vital Signs Temp Pulse Resp BP Pulse Ox O2 Del Method 03/25/24 08:02 36.6 C 77 16 129/75 94 Room Air 03/24/24 21:00 Room Air Queries Orthopedic Spine Obesity: Yes
--- NOTE | 2024-03-25 10:49 | Cardiology Progress Note ---
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 Patient appears much more comfortable than he did the day before surgery and immediately postoperative. He is looking forward to shaving. Hemoglobin reduced slightly to 7.8 today, but overall relatively stable. INR 03/25/2024 1.4, unchanged compared to yesterday, continue home dose of Coumadin 5 mg daily. Allow INR to come up to his goal, 2.5-3.5 (but I think would be wiser to keep him in the 2.5-3 range), slowly without bridge therapy with Lovenox or heparin. Continue knee-high SCDs. Spinal drains remain in place with ongoing mild drainage. Repeat CBC and INR tomorrow. Admission and Anticipated Discharge Date Admission Date: March 22, 2024 Physical Exam Physical Exam: General: Ill in appearance without acute distress, improved compared to 03/23/14 Eyes: conjunctiva are pink and non-injected, sclera clear Neck: normal jugular venous pulse, no hepatojugular reflux Chest: normal shape and normal respiratory effort Lungs: clear to auscultation and percussion Cardiac Exam: -Irregular rhythm, tachycardic, crisp prosthetic heart sounds noted, no murmurs Abdomen: abdomen soft, non-tender, no abnormal masses and no hepatosplenomegaly Musculoskeletal: no gait disturbance, no weakness Extremities: 1+ bilateral lower extremity edema, Knee high SCDs in place Neuro: distal sensation of both lower extremities intact, patient able to wiggle toes, flex and extend leg and ankle of the right leg, still having difficulty wiggling his toes of the left leg, however he is able to lift the leg and flex extend his knee and overall this seems to be trending toward improv ement. : Sher catheter is in place draining clear yellow urine Results & Data Vital Signs (Past 12 Hours) Vital Signs Temp Pulse Resp BP Pulse Ox O2 Del Method 03/25/24 08:02 36.6 C 77 16 129/75 94 Room Air 03/25/24 07:30 Room Air Laboratory Results Coagulation 03/25/24 Range/Units 05:29 PT 14.6 H (9.0-12.0) Seconds CBC 03/25/24 Range/Units 05:29 WBC 8.82 (4.8-10.8) K/ul RBC 2.45 L (4.70-6.10) M/uL Hgb 7.8 L (14.0-18.0) g/dl Hct 24.5 L (42.0-52.0) % Plt Count 185 (130-400) K/uL Neut # (Auto) 7.59 H (1.40-6.50) K/uL Lymph # (Auto) 0.64 L (1.20-3.40) K/uL [place] # (Auto) 0.53 (0.11-0.59) K/uL Eos # (Auto) 0.01 (0.00-0.50) K/uL Baso # (Auto) 0.01 (0.00-0.20) K/uL Comprehensive Metabolic Panel 03/25/24 Range/Units 05:29 Sodium 137 (136-145) mmol/L Potassium 4.7 (3.5-5.1) mmol/L Chloride 104 (98-107) mmol/L Carbon Dioxide 30 (21-32) mmol/L BUN 18 (6-23) mg/dl Creatinine 0.83 (0.6-1.4) mg/dl Glucose 132 H (70-99(Fasting)) mg/dl Calcium 8.6 (8.6-10.3) mg/dl Intake and Output 03/24/24 03/25/24 03/25/24 22:59 06:59 14:59 Output Total 1155 / 3670 965 / 3670 Balance -1155 / -2171.25 -965 / -2171.25 Output: Urine Amount (Catheter) 1150 / 3605 955 / 3605 Sher/Indwelling 1150 / 3605 955 / 3605 Drain Output Back LUIS #1 Back LUIS #2
--- NOTE | 2024-03-25 15:00 | Hospitalist Progress Note ---
Date of Service March 25, 2024 Assessment & Plan (1) Fall: Plan: Recent L2-L5 spine surgery with Dr. Lester on 03/04 Patient fell onto left hip on 03/17, then developed severe lower back pain and worsening lower extremity numbness on 03/19 then 1 episode of urinary retention followed by urinary incontinence on 03/22 Patient had an MRI at [place] which showed large 8.5cm epidermal hematoma with impingement of the thecal sac S/p OR with Dr. Lester on 03/23 for I&D -Perioperative antibiotics, activity, pain control, and DVT PPx per the primary team Neurovascular checks q4h Now on Room air (2) Epidural hematoma: Plan: Plan (as above) (3) History of aortic valve replacement with metallic valve: Plan: In 2001 INR elevated on admission at 2.1, Patient reportedly received vitamin K 5mg in [place] Recheck INR 1.4 Cardiology following - Coumadin restarted 03/24 (4) Anemia: Plan: In the setting of acute blood loss anemia secondary to surgery on 03/04 Hgb 8.9 on arrival and stable No signs of active bleeding on clinical exam patient states he has never had a workup for anemia before - iron studies, B12, folate WNL - will defer further workup to PCP trend AM CBC (5) Essential hypertension: Plan: Continue metoprolol (6) Hyperlipidemia: Plan: Continue atorvastatin, ezetimibe Plan Dispo: continued inpatient stay, following AM labs VTE PPx: SCDs/teds Thank you for allowing us to participate in the care of this patient, please reach out with any questions or concerns; we will continue to follow. Admission and Anticipated Discharge Date Admission Date: March 22, 2024 Supervising Physician Co-Signing Physician Notes Attending Attestation: Chart reviewed, care plan d/w RAUL Miles. I agree w/ the lebron components of her documentation. Dutch Monson MD Subjective patient seen lying in bed. Family at bedside. Has not been able to walk yet, but had not had physical therapy by the time I saw him. Has not had a bowel movement since surgery patient is still unable to wiggle his left toes. States that he was able to after his first surgery but has not been able to since the fall and his hematoma Review of Systems Review of Systems: All systems reviewed & are unremarkable except as noted in Subjective Physical Exam Physical Exam: General: NAD, VS as above Resp: normal respiratory effort, lungs clear to auscultation CV: irregular, heart valve sound noted, no murmur, Abd: soft, non tender, Extremities: Moves all extremities, unable to wiggle toes on left foot but in creasing movement of left foot Results & Data Results & Data Vital Signs (Past 12 Hours) Vital Signs Temp Pulse Resp BP Pulse Ox O2 Del Method 03/25/24 14:17 36.8 C 73 16 112/78 94 Room Air 03/25/24 08:02 36.6 C 77 16 129/75 94 Room Air 03/25/24 07:30 Room Air Laboratory Results CBC, chemistry, INR reviewed PG Care Time/CCT Total # of Minutes Spent Total Time Spent with Patient: Total time spent is greater than 50% in coordination of care (as documented) at patient's floor/unit and/or counseling patient: Coding Level of Care Code 22120 SUB INP/OBS CARE 2/35MIN Diagnoses Fall W19.XXXA Epidural hematoma S06.4XAA History of aortic valve replacement with metallic valve Z95.4 Anemia D64.9 Essential hypertension I10 Hyperlipidemia E78.5
[2024-03-26 07:23] LABS: Hematocrit (blood only) 26.2 % (42.0-52.0); Hemoglobin 8.4 g/dl (14.0-18.0); Mean Corpuscular Hemoglobin 32.3 pg (25.0-34.0); Mean Corpuscular Hgb Conc 32.1 g/dL (32.0-36.0); Mean Corpuscular Volume 100.8 fL (80.0-100.0); Mean Platelet Volume 9.3 fL (9.4-12.4); Platelet Count 199 K/uL (130-400); RDW Coefficient of Variation 14.9 % (11.5-14.5); RDW Standard Deviation 55.1 fL (36.4-46.3); White Blood Count 7.08 K/ul (4.8-10.8)
[2024-03-26 07:46] LABS: INR 1.6 (0.9-1.1)
[2024-03-26] MEDS: POLYETHYLENE (MIRALAX) 17 GM PACK PO SCH (08:30)
--- NOTE | 2024-03-26 11:30 | Orthopedic Progress Note ---
Date of Service March 26, 2024 Assessment & Plan (1) Epidural hematoma: Plan: At this time we will continue physical therapy anticipate discharge to rehab tomorrow. Admission and Anticipated Discharge Date Admission Date: March 22, 2024 Subjective Patient's back pain is controlled. He feels his leg symptoms are improving. Physical Exam Physical Exam: On exam he is comfortable. Is good strength testing right lower extremity improved strength the left lower extremity. Results & Data Vital Signs (Past 12 Hours) Vital Signs Temp Pulse Resp BP Pulse Ox O2 Del Method 03/26/24 08:26 78 17 98/59 L 95 Room Air 03/26/24 07:20 36.4 C L 69 18 120/81 95 Room Air 03/26/24 07:15 Room Air Queries Orthopedic Spine Obesity: Yes
--- NOTE | 2024-03-26 12:39 | Cardiology Progress Note ---
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 Hemoglobin stable today 8.4 g/dl. INR 03/26/2024 1.6, up from 1.4 yesterday, continue home dose of Coumadin 5 mg daily. Allow INR to come up to his goal, 2.5-3.5 (2.5-3 range preferable with spinal hematoma), slowly without bridge therapy with Lovenox or heparin. Continue knee-high SCDs. Management of spinal drains as per surgical team. Repeat CBC and INR tomorrow. PT as tolerated. Admission and Anticipated Discharge Date Admission Date: March 22, 2024 Subjective 79-year-old male seen and examined at the bedside. Feeling well today. Lower extremity weakness somewhat improved. Denies chest pain or heaviness. No shortness of breath. Warfarin restarted. INR 1.6 today. Review of Systems Review of Systems: All systems reviewed & are unremarkable except as noted in Subjective Physical Exam Constitutional: well nourished; no acute distress Respiratory: no respiratory distress, no labored breathing and no retractions Auscultation: no crackles, no rales, no rhonchi and no wheezes Cardiovascular: Rate/Rhythm: regular rate and regular rhythm Heart Sounds: normal S1, normal S2 and + murmur (1/6 systolic murmur, + crisp valve closure click) Extremities: no edema Gastrointestinal (Abdomen): Inspection/Auscultation: abdomen normal to inspection and normal bowel sounds; abdomen not distended Percussion/Palpation: abdomen soft; abdomen nontender, no guarding and abdomen not rigid Results & Data Vital Signs (Past 12 Hours) Vital Signs Temp Pulse Resp BP Pulse Ox O2 Del Method 03/26/24 11:33 69 106/70 03/26/24 08:26 78 17 98/59 L 95 Room Air 03/26/24 07:20 36.4 C L 69 18 120/81 95 Room Air 03/26/24 07:15 Room Air Laboratory Results Coagulation 03/26/24 Range/Units 06:51 PT 17.0 H (9.0-12.0) Seconds CBC 03/26/24 Range/Units 06:51 WBC 7.08 (4.8-10.8) K/ul RBC 2.60 L (4.70-6.10) M/uL Hgb 8.4 L (14.0-18.0) g/dl Hct 26.2 L (42.0-52.0) % Plt Count 199 (130-400) K/uL Intake and Output 03/25/24 03/26/24 03/26/24 22:59 06:59 14:59 Output Total 775 / 2515 1275 / 2515 Balance -775 / -2515 -1275 / -2515 Output: Urine Amount (Catheter) 775 / 2450 1250 / 2450 Sher/Indwelling 775 / 2450 1250 / 2450 Drain Output Back LUIS #1 Back LUIS #2
--- NOTE | 2024-03-26 13:21 | Hospitalist Progress Note ---
Date of Service March 26, 2024 Assessment & Plan (1) Fall: Plan: Recent L2-L5 spine surgery with Dr. Lester on 03/04 Patient fell onto left hip on 03/17, then developed severe lower back pain and worsening lower extremity numbness on 03/19 then 1 episode of urinary retention followed by urinary incontinence on 03/22 Patient had an MRI at [place] which showed large 8.5cm epidermal hematoma with impingement of the thecal sac S/p OR with Dr. Lester on 03/23 for I&D -Perioperative antibiotics, activity, pain control, and DVT PPx per the primary team Neurovascular checks q4h PT/OT - plan for rehab (2) Epidural hematoma: Plan: Plan (as above) (3) History of aortic valve replacement with metallic valve: Plan: In 2001 INR elevated on admission at 2.1, Patient reportedly received vitamin K 5mg in [place] Cardiology following - Coumadin restarted 03/24 -INR increasing, defer management to cardiology (4) Anemia: Plan: In the setting of acute blood loss anemia secondary to surgery on 03/04 Hgb 8.9 on arrival No signs of active bleeding on clinical exam patient states he has never had a workup for anemia before - iron studies, B12, folate WNL - will defer further workup to PCP Hgb now improving (5) Essential hypertension: Plan: Continue metoprolol (6) Hyperlipidemia: Plan: Continue atorvastatin, ezetimibe Plan Dispo: continued inpatient stay VTE PPx: SCDs/teds Thank you for allowing us to participate in the care of this patient, hospitalist team will sign off. please reach out with any questions or concerns Admission and Anticipated Discharge Date Admission Date: March 22, 2024 Supervising Physician Co-Signing Physician Notes Attending Attestation: Chart reviewed, care plan d/w RAUL Miles. I agree w/ the lebron components of her documentation. Dutch Monson MD Subjective Patient sitting up in bed. Has not walked yet. Also no bowel movement, but is passing gas. still unable to wiggle toes on left foot No acute complaints Review of Systems Review of Systems: All systems reviewed & are unremarkable except as noted in Subjective Physical Exam Physical Exam: General: NAD, VS as above Resp: normal respiratory effort, lungs clear to auscultation CV: irregular, heart valve sound noted, no murmur, Abd: soft, non tender, Extremities: Moves all extremities, unable to wiggle toes on left foot but increasing movement of left foot Results & Data Results & Data Vital Signs (Past 12 Hours) Vital Signs Temp Pulse Resp BP Pulse Ox O2 Del Method 03/26/24 11:33 69 106/70 03/26/24 08:26 78 17 98/59 L 95 Room Air 03/26/24 07:20 36.4 C L 69 18 120/81 95 Room Air 03/26/24 07:15 Room Air Laboratory Results CBC and INR reviewed PG Care Time/CCT Total # of Minutes Spent Total Time Spent with Patient: Total time spent is greater than 50% in coordination of care (as documented) at patient's floor/unit and/or counseling patient: Coding Level of Care Code 01654 SUB INP/OBS CARE 2/35MIN Diagnoses Fall W19.XXXA Epidural hematoma S06.4XAA History of aortic valve replacement with metallic valve Z95.4 Anemia D64.9 Essential hypertension I10 Hyperlipidemia E78.5
[2024-03-26] MEDS: SOD PHOSPHATE/SOD BIPHOSPHATE ENEMA 132 ML BTL PR PRN (23:25)
--- NOTE | 2024-03-27 10:41 | Cardiology Progress Note ---
<Statement entered by Olivia Lanza MD - 03/27/24 19:26> I have reviewed the advanced practitioner's documentation on the date of service referenced in note, and I agree with, and take responsibility for the plan of care. I have not seen this patient he was discharged I spent a total of [5] minutes coordinating, documenting, and providing care for this patient excluding time spent in the performance of separately billed services or time spent by another provider. Date of Service March 27, 2024 Assessment & Plan (1) Epidural hematoma: (2) Acute blood loss anemia: (3) Chronic atrial fibrillation: (4) History of aortic valve replacement with metallic valve: Plan: 79 year old male with an old mechanical aortic valve prosthesis and permanent atrial fibrillation admitted with a spinal hematoma post fall. Anticoagulation reversed with 5 mg IV Vitamin K 5 mg on 03/22/2024, status post surgical intervention by Dr. Lester on 03/23/2024. Patient is back on oral Warfarin. INR gradually trending up to a goal of 2.5 to 3. No bridge anticoagulation with Lovenox or heparin recommended. CBC and INR requested. Continue knee-high SCDs. Management of spinal drains as per surgical team. PT as tolerated. Admission and Anticipated Discharge Date Admission Date: March 22, 2024 Subjective Patient seen and examined. Chart reviewed. Non-telemetry bed. Back surgery on March 04. Drains removed on the . Discharged on the . Fall at home on the , experiencing low back pain and leg weakness thereafter. Large acute/subacute hematoma, undergoing surgical evacuation and copious irrigation on March 23, 2024. No chest pain. No shortness of breath. No palpitations. AM labs not yet obtained. Review of Systems Review of Systems: Complete Review of Systems is as stated above, negative, or noncontributory. Physical Exam Physical Exam: General: A&Ox3. NAD. HENT: Normocephalic. Atraumatic. Neck: No JVD. Heart: Irregularly irregular at 80 bpm. [place] mechanical aortic valve sounds. Lungs: Clear to auscultation anteriorly. Abdomen: +BS. No organomegaly. Sher catheter in place Extremities: Mild edema. No No cyanosis Results & Data Vital Signs (Past 12 Hours) Vital Signs Temp Pulse Resp BP Pulse Ox O2 Del Method 03/27/24 10:04 Room Air 03/27/24 07:07 36.6 C 79 16 120/75 92 Room Air 03/26/24 23:30 36.4 C L 74 18 137/79 94 Room Air Laboratory Results Intake and Output 03/26/24 03/27/24 03/27/24 22:59 06:59 14:59 Intake Total 300 / 300 Output Total 1261 / 2471 1210 / 2471 500 / 500 Balance -961 / -2171 -1210 / -2171 -500 / -500 Intake: Oral 300 / 300 Output: Urine Amount (Catheter) 1225 / 2425 1200 / 2425 500 / 500 Sher/Indwelling 1225 / 2425 1200 / 2425 500 / 500 Drain Output 35 45 Back LUIS #1 Back LUIS #2 # Bowel Movements Other: Weight 118 kg Patient Weight 03/28/24 06:59 Weight 118 kg
[2024-03-27 10:52] LABS: Hematocrit (blood only) 27.2 % (42.0-52.0); Hemoglobin 8.8 g/dl (14.0-18.0); Mean Corpuscular Hemoglobin 32.5 pg (25.0-34.0); Mean Corpuscular Hgb Conc 32.4 g/dL (32.0-36.0); Mean Corpuscular Volume 100.4 fL (80.0-100.0); Platelet Count 219 K/uL (130-400); RDW Coefficient of Variation 14.9 % (11.5-14.5); RDW Standard Deviation 54.4 fL (36.4-46.3); Red Blood Count 2.71 M/uL (4.70-6.10); White Blood Count 9.33 K/ul (4.8-10.8)
[2024-03-27 11:38] LABS: INR 1.8 (0.9-1.1); Prothrombin Time 18.7 Seconds (9.0-12.0)
--- NOTE | 2024-03-31 09:22 | Discharge Summary ---
Date of Service March 31, 2024 Admission HPI Per Admitting Provider This is a 79-year-old male that presents the emergency room in [place] yesterday. He has been diagnosed with a postop lumbar epidural hematoma and INR that is supratherapeutic. Subsequently was transferred to [facility], [place] to undergo evaluation and consideration for I&D. Admission Exam (Per Admitting) Constitutional WD/WN, vitals as above Eyes normal visual dean by confrontation ENMT external ear and nose normal, oropharynx normal Neck normal visual inspection Respiratory normal respiratory effort Cardiovascular Extremities: normal capillary refill Gastrointestinal (Abdomen) Inspection/Auscultation: abdomen normal to inspection Musculoskeletal Spine: + limited thoraco-lumbar ROM Extremities: + abnormal strength Skin normal turgor Neurologic normal touch/pain/proprioception and + focal motor deficit Psychiatric A+Ox3, euthymic affect Discharge Data Consultations 03/22/24 13:56 ED Decision to Admit Stat 03/22/24 14:24 Consult Internal Medicine Stat 03/22/24 14:34 Consult Cardiology Stat 03/22/24 17:38 Consult Internal Medicine Routine Procedures Performed Operation Date: 03/23/24 13:45 Actual Procedures p Incision and Drainage, Evacuation Hematoma Lumbar Spine(Not Applicable) - Óscar Lester DO Hospital Course (1) Epidural hematoma: Patient underwent an L2-5 decompression and fusion with Dr. Lester on 03/04/2024. He went home upon discharge. Unfortunately sustained a fall on / at home. He is on anticoagulation due to heart valve. Went to the [place] emergency room on 03/22 due to increased pain, lower extremity weakness and an episode of urinary retention. He was transferred to [facility]. Scans revealed a postoperative epidural hematoma. He underwent I&D and evacuation of hematoma by Dr. Lester on March 23. He underwent discharged to a rehab on March 27. Cardiology and hospitalist team followed along during his hospital stay Discharge Instructions ACTIVITY RECOMMENDATIONS: SELF CARE INSTRUCTIONS AFTER THORACIC/LUMBAR FUSIONS 1. You may walk to your tolerance. It is good exercise for your legs and back. Expect some back and intermittent leg aches and pains. 2. You may perform "counter-top" level activities (make a sandwich, koby with a project, etc.). 3. No bending or lifting of more than 10 pounds or back twisting of any nature (roll like a log when turning in bed). 4. You may ride in a car for 20-30 minutes at a time. No driving until after your first visit with your doctor. 5. Frequent changes of position and restricting sitting to 30 minutes at a time will help limit the amount of back spasms and stiffness you may experience. 6. You may discontinue the use of ambulatory aids (cane, crutches, etc.) once your strength and confidence allow. 7. You may real estate administrator the shower and let water strike your incision when you arrive home at least once daily. Do not take a tub bath, sit in a hot tub or go into a swimming pool until after your first recheck in the office. SPECIAL CARE INSTRUCTIONS: VERY IMPORTANT TO READ AND REVIEW A. Your surgical incision has been closed with a cosmetic suture under the skin that will dissolve in about 6 weeks. In 14 days, you can use a pair of clean scissors and cut the suture that is left outside of the skin at the ends of your incision. 1. The small skin tapes can be removed 7 days after surgery if they have not fallen off by that point. 2. You may keep the wound open to air as much as possible to promote healing after post-op day number 5 unless told otherwise by your doctor. 3. If you think the wound looks like it is becoming infected (redness or worsening drainage) and/or you are experiencing fever, chill or worsening back pain and muscle spasms, contact the office so that we may evaluate you as soon as possible. B. Complications are uncommon, but please contact us if you have any signs or symptoms of: 1. wound infection (fever higher than 102.5 degrees F, redness, separation of wound, drainage, or increasing pain from the incision) 2. blood clots in legs (pain, swelling, redness and warmth in legs) 3. urinary tract infection (fever higher than 102.5 degrees F, burning upon urination or increased frequency of urination) 4. nerve problems (inability to walk on your toes or heels, numbness, loss of bowel or bladder control) 5. any other symptoms that concern you C. Please call the office at if you have any concerns or questions about your operation or recovery. D. No smoking! Smoking drastically decreases the chance of a solid fusion. E. Do not take any anti-inflammatory medications (Indocin, Advil, Motrin, Aspirin, Naprosyn, etc.) as these may inhibit the chance of a solid fusion. Tylenol is okay to take for pain. MANAGING PAIN AFTER SPINAL SURGERY 1. Narcotic medication is intended for short-term use and will be provided for surgical pain. Surgical pain usually lasts for a period of 4-6 weeks. Narcotic medication includes Percocet, Vicodin, Darvocet, Tylenol #3 or Lortab. 2. Longer-term pain is more appropriately treated with non-narcotic medication such as Tylenol ES. 3. Muscle spasm is not appropriately treated with narcotics. Muscle relaxers such as Soma, Flexeril or Skelaxin can be used along with Tylenol ES. 4. Remember that we all live with some "aches and pains". This is not unusual or uncommon after an injury or as we get older. a. Back pain is expected and may include muscle spasms for 4 to 6 weeks after surgery. The pain should gradually improve. If the pain worsens for no apparent reason, please contact the office. b. Intermittent leg pain may also be experienced and should not be concerned about unless it worsens for no apparent reason. If so, please contact the office. 5. We will provide appropriate medication within the normal guidelines of their prescribed use. We will also be very cautious and aware of potential abuse and extended duration of patients' medication needs. a. Pain medications are for your comfort and to assist with sleep and rest so that the tissue can heal. They are not provided in order to return to normal activity and should not be used through the day. To do so or worsening pain at night can result from ongoing tissue damage and development of tolerance to the prescribed medicine. 6. Please allow 2-3 days to process refills. Prescriptions will not be mailed but must be picked up at the office. FOLLOW UP VISIT: Keep your scheduled follow-up appointment. Any questions, please call the office at .
--- NOTE | 2024-04-01 07:22 | Coding Query ---
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 Please assist us with the question(s) below: Coding Question(s): Patient with recent 03/05 spinal fusion admitted on 03/22 after fall onto left hip on . Patient developed fall in blood pressure and worsening lower extremity numbness, diagnosed with epidural hematoma. Patient taken to the OR for removal of a large blood clot in the lumbar back region. Please check below the phrase that describes the epidural hematoma. Thanks for your help! TAMMY Clark [facility] Physician's Response(s): The Post-operative epidural hematoma was a complication of the prior fusion procedure ____x The Post-operative epidural hematoma was due to patient's fall/ trauma Other: please document: Principal Diagnosis: "that condition established after study, to be chiefly responsible for occasioning the admission of the patient to the hospital for care." Co-Existing Principal Diagnosis: "when two or more diagnoses equally meet the criteria for principal diagnosis as determined by the circumstances of admission, diagnostic work up, and/or therapy provided, and the Alphabetic Index, Tabular List, or another coding guideline does not provide sequencing direction, any one of the diagnoses may be sequenced first." "When the physician has documented what appears to be a current diagnosis in the body of the record, but has not included the diagnosis in the final diagnostic statement, the physician should be asked whether the diagnosis should be added." (Source [facility]oding [facility] 2 QTR90. p3-4) THEO
== END 2024-03-27 11:19 | DRG 579 ==
LOC: ED 13:34 → 3E 14:39